=== PATIENT | male | born 1935 | race Caucasian/White ===

== ENCOUNTER → 2016-12-02 | Outpatient (CLI) | payer MEDICARE, OTHER ==
[~2016-12-02] MED LIST: ALLO300T2 OR; ASPI81CH43 OR; CHOL10006 OR; IRBE150T26 OR; OMEG100062 OR; OXCA600T3 OR; ROSU20TA14 OR; WARF7.5T7 OR; [UNRECOGNIZED DRUG - OTHER] OR
[2016-12-02 13:09] LABS: Urine Bilirubin Negative (Negative); Urine Blood TRACE /uL (Negative); Urine Color Yellow (Yellow); Urine Glucose Normal (Normal); Urine Ketone Negative (Negative); Urine Nitrite Negative (Negative); Urine Urobilinogen Normal (Negative); Urine pH 5.5 (5.0-8.0)
[2016-12-02 13:15] LABS: Basophils # (auto) 0 uL; Basophils % (auto) 0.9 % (0.0-2.0); CONDITION Y; Eosinophils # (auto) 0.4 uL; Eosinophils % (auto) 8.4 % (0.0-7.0); Hematocrit 40.8 % (41.0-53.0); Hemoglobin 13.9 g/dL (13.5-17.5); Lymphocytes # (auto) 0.8 uL; Mean Corpuscular Hemoglobin 33.3 pg (28.0-32.0); Mean Corpuscular Hgb Conc. 34.1 g/dL (32.0-36.0); Mean Corpuscular Volume 97.8 fL (80.0-100.0); Mean Platelet Volume 10.9 fL (7.4-10.4); Monocytes # (auto) 0.4 uL; Monocytes % (auto) 7.9 % (0.0-12.0); Neutrophils # (auto) 3.5 uL; Neutrophils % (auto) 67.8 % (37.0-80.0); Platelet Count (auto) 132 10^3/uL (140-450); Red Cell Distribution Width 14.6 % (11.6-16.0); White Blood Cell 5.2 10^3/uL (4.4-10.8)
[2016-12-02 13:21] LABS: BUN/Creatinine Ratio 14.2; Calcium 8.5 mg/dL (8.5-10.1); Potassium 4.5 mmol/L (3.5-5.1)
== END | disposition home or self-care (01) ==
LOC: LAB 08:58
PROVIDERS: ATTEND Internal Medicine Cardiovascular Disease
DX: I10 Essential (primary) hypertension (principal); E78.00 Pure hypercholesterolemia, unspecified; K74.1 Hepatic sclerosis; E11.9 Type 2 diabetes mellitus without complications; R97.20 Elevated prostate specific antigen [PSA]; R53.81 Other malaise; E03.9 Hypothyroidism, unspecified; D64.9 Anemia, unspecified; E55.9 Vitamin D deficiency, unspecified; N39.0 Urinary tract infection, site not specified
CPT/HCPCS: 36415; 80048; 80061; 81003; 82306; 83036; 84153; 84403; 84443; 85025

== ENCOUNTER → 2017-04-18 | Outpatient (CLI) | payer MEDICARE, OTHER ==
[2017-04-18 16:01] LABS: Basophils # (auto) 0.1 uL; Basophils % (auto) 0.8 % (0.0-2.0); Eosinophils # (auto) 0.2 uL; Eosinophils % (auto) 3.1 % (0.0-7.0); Hematocrit 39.5 % (41.0-53.0); Hemoglobin 13.4 g/dL (13.5-17.5); Lymphocytes # (auto) 0.7 uL; Lymphocytes % (auto) 9.7 % (10.0-50.0); Mean Corpuscular Hemoglobin 33.1 pg (28.0-32.0); Mean Corpuscular Volume 97.5 fL (80.0-100.0); Mean Platelet Volume 9.5 fL (6.9-10.8); Monocytes # (auto) 0.6 uL; Monocytes % (auto) 7.9 % (0.0-12.0); Neutrophils % (auto) 78.5 % (37.0-80.0); Nucleated Red Blood Cells % 0.2 %; Platelet Count (auto) 162 10^3/uL (140-450); Red Cell Distribution Width 14.4 % (11.8-14.3); Urine Bilirubin Negative (Negative); Urine Blood Negative /uL (Negative); Urine Color Yellow (Yellow); Urine Glucose Normal (Normal); Urine Ketone Negative (Negative); Urine Nitrite Negative (Negative); Urine Urobilinogen Normal (Negative); Urine pH 5.5 (5.0-8.0); White Blood Cell 7.7 10^3/uL (4.4-10.8)
[2017-04-18 16:29] LABS: Albumin 3.4 g/dL (3.4-5.0); BUN/Creatinine Ratio 16.5; Bilirubin, Direct 0.2 mg/dL (0-0.2); Bilirubin, Total 0.5 mg/dL (0.2-1.0); Calcium 8.6 mg/dL (8.5-10.1); Total Protein 6.7 g/dL (6.4-8.2)
== END | disposition home or self-care (01) ==
LOC: LAB 11:55
PROVIDERS: ATTEND Internal Medicine Cardiovascular Disease
DX: E78.00 Pure hypercholesterolemia, unspecified (principal); E11.9 Type 2 diabetes mellitus without complications; I10 Essential (primary) hypertension; D64.9 Anemia, unspecified; E03.9 Hypothyroidism, unspecified; E55.9 Vitamin D deficiency, unspecified; K74.1 Hepatic sclerosis; N39.0 Urinary tract infection, site not specified; R97.20 Elevated prostate specific antigen [PSA]; R53.81 Other malaise
CPT/HCPCS: 36415; 80048; 80061; 80076; 81003; 82306; 83036; 84153; 84403; 84436; 84443; 85025; 87086

== ENCOUNTER → 2017-04-22 | Outpatient (CLI) | payer MEDICARE, OTHER | END | disposition home or self-care (01) | LOC: Rad HDHVI 14:49 | PROVIDERS: ATTEND Internal Medicine Cardiovascular Disease | DX: I36.1 Nonrheumatic tricuspid (valve) insufficiency (principal); Z95.1 Presence of aortocoronary bypass graft | CPT/HCPCS: 93306 ==

== ENCOUNTER → 2017-04-24 | Outpatient (CLI) | payer MEDICARE, OTHER ==
[~2017-04-24] MED LIST changes: +ALLO300T2 PO; +ASPI1TAB37 PO; +BUME1TAB PO; +CHOL20009 PO; +DIGO0.1262 PO; +DIGO0.2570 PO; +DOBUTamine 1000MCG/ML 250 ML IV ONE; +FUROSEMIDE INJECTION 10 ML ONE; +LEVE500T22 PO; +NEBI20TA2 PO; +OMEG120015 PO; +POTASSIUM CHL 20 Meq TABLET PO ONE; +ROSU20TA14 PO; +TAM04C PO; +TESTOSTERONE CYPIONATE 200 MG/ML 1ML VIAL IM ONE; +WARF7.5T PO
[2017-04-24 14:15] VITALS: BP 120/64
[2017-04-24 16:15] LABS: Basophils # (auto) 0.1 uL; Eosinophils # (auto) 0.3 uL; Eosinophils % (auto) 5.3 % (0.0-7.0); Hematocrit 37.5 % (41.0-53.0); Hemoglobin 12.5 g/dL (13.5-17.5); Lymphocytes # (auto) 0.6 uL; Lymphocytes % (auto) 9.4 % (10.0-50.0); Mean Corpuscular Hemoglobin 32.9 pg (28.0-32.0); Mean Corpuscular Hgb Conc. 33.2 g/dL (32.0-36.0); Mean Corpuscular Volume 98.9 fL (80.0-100.0); Monocytes # (auto) 0.4 uL; Monocytes % (auto) 6.9 % (0.0-12.0); Neutrophils # (auto) 4.9 uL; Neutrophils % (auto) 77.4 % (37.0-80.0); Nucleated Red Blood Cells % 0.2 %; Platelet Count (auto) 136 10^3/uL (140-450); Red Blood Cells 3.79 10^6/uL (4.5-5.90); Red Cell Distribution Width 14.8 % (11.8-14.3); White Blood Cell 6.3 10^3/uL (4.4-10.8)
[2017-04-24 16:30] LABS: BUN/Creatinine Ratio 18.7; Calcium 8.1 mg/dL (8.5-10.1); Potassium 3.6 mmol/L (3.5-5.1)
== END | disposition home or self-care (01) ==
LOC: CHF HDHVI 10:40
PROVIDERS: ATTEND Internal Medicine Cardiovascular Disease
DX: I11.0 Hypertensive heart disease with heart failure (principal); I50.9 Heart failure, unspecified; D64.9 Anemia, unspecified; I10 Essential (primary) hypertension; I48.91 Unspecified atrial fibrillation; N19 Unspecified kidney failure; E29.1 Testicular hypofunction; Z79.899 Other long term (current) drug therapy
CPT/HCPCS: 36415; 80048; 80162; 83880; 85025; 93005; 93701; 96365; 96366; 96367; 96372; G0463; J1071; J1250; J1940

== ENCOUNTER → 2017-04-28 | Outpatient (CLI) | payer MEDICARE, OTHER ==
[~2017-04-28] VITALS: Ht 33 cm; Wt 101.2 kg
[~2017-04-28] MED LIST changes: +FUROSEMIDE 100 MG/10ML VIAL IV ONE; +SODIUM CHLORIDE 0.9% 100 ML IV SCH; -TESTOSTERONE CYPIONATE 200 MG/ML 1ML VIAL IM ONE
[2017-04-28 14:40] VITALS: BP 95/55
== END | disposition home or self-care (01) ==
LOC: CHF HDHVI 10:49
PROVIDERS: ATTEND Internal Medicine Cardiovascular Disease
DX: I50.9 Heart failure, unspecified (principal); I25.10 Atherosclerotic heart disease of native coronary artery without angina pectoris
CPT/HCPCS: 96365; 96366; 96367; G0463; J1250; J1940; 96368

== ENCOUNTER → 2017-04-30 | Outpatient (CLI) | payer MEDICARE, OTHER ==
[2017-04-30] VITALS (9 sets, daily range): BP systolic 103–112; BP diastolic 60–73
[~2017-04-30] MED LIST changes: -FUROSEMIDE 100 MG/10ML VIAL IV ONE; +FUROSEMIDE 40 MG/4 ML VIAL ONE; -FUROSEMIDE INJECTION 10 ML ONE; +FUROSEMIDE IV SCH; -POTASSIUM CHL 20 Meq TABLET PO ONE; +SODIUM CHL 0.9% IV SCH; -SODIUM CHLORIDE 0.9% 100 ML IV SCH
[2017-04-30 16:22] LABS: Albumin 3.4 g/dL (3.4-5.0); BUN/Creatinine Ratio 17.7; Basophils # (auto) 0.1 uL; Calcium 8.7 mg/dL (8.5-10.1); Eosinophils # (auto) 0.4 uL; Hematocrit 42.1 % (41.0-53.0); Hemoglobin 14.1 g/dL (13.5-17.5); Lymphocytes # (auto) 0.7 uL; Lymphocytes % (auto) 11.4 % (10.0-50.0); Magnesium 2.5 mg/dL (1.6-2.6); Mean Corpuscular Hemoglobin 33.1 pg (28.0-32.0); Mean Corpuscular Hgb Conc. 33.6 g/dL (32.0-36.0); Mean Corpuscular Volume 98.6 fL (80.0-100.0); Monocytes # (auto) 0.4 uL; Monocytes % (auto) 6.5 % (0.0-12.0); Neutrophils # (auto) 4.9 uL; Neutrophils % (auto) 75.1 % (37.0-80.0); Nucleated Red Blood Cells % 0.3 %; Platelet Count (auto) 126 10^3/uL (140-450); Potassium 3.8 mmol/L (3.5-5.1); Red Blood Cells 4.27 10^6/uL (4.5-5.90); Red Cell Distribution Width 14.6 % (11.8-14.3); White Blood Cell 6.5 10^3/uL (4.4-10.8)
[2017-04-30 16:25] LABS: Bilirubin, Total 0.5 mg/dL (0.2-1.0); Total Protein 6.6 g/dL (6.4-8.2)
== END | disposition home or self-care (01) ==
LOC: CHF HDHVI 07:56
PROVIDERS: ATTEND Internal Medicine Cardiovascular Disease
DX: I50.9 Heart failure, unspecified (principal); N19 Unspecified kidney failure
CPT/HCPCS: 36415; 80053; 82607; 83735; 85025; 85610; 96365; 96366; 96368; G0463; J1250; J1642; J1940; 96367

== ENCOUNTER → 2017-05-02 | Outpatient (CLI) | payer MEDICARE, OTHER ==
[~2017-05-02] MED LIST changes: +FUROSEMIDE 100 MG/10ML VIAL IV ONE; -FUROSEMIDE 40 MG/4 ML VIAL ONE; +FUROSEMIDE INJECTION 10 ML ONE; -FUROSEMIDE IV SCH; -SODIUM CHL 0.9% IV SCH; +SODIUM CHLORIDE 0.9% 100 ML IV ONE
[2017-05-02 09:00] VITALS: BP 99/58
[2017-05-02 09:15] VITALS: BP 106/68
[2017-05-02 11:55] VITALS: BP 99/58
== END | disposition home or self-care (01) ==
LOC: CHF HDHVI 07:50
PROVIDERS: ATTEND Internal Medicine Cardiovascular Disease
DX: I50.9 Heart failure, unspecified (principal); I25.10 Atherosclerotic heart disease of native coronary artery without angina pectoris; N40.0 Benign prostatic hyperplasia without lower urinary tract symptoms; I48.91 Unspecified atrial fibrillation
CPT/HCPCS: 96365; 96366; G0463; J1250; J1940; 96368

== ENCOUNTER → 2017-05-06 | Outpatient (CLI) | payer MEDICARE, OTHER ==
[2017-05-06] VITALS (10 sets, daily range): BP systolic 98–112; BP diastolic 53–74
[~2017-05-06] MED LIST changes: +CYANOCOBALAMIN (B-12) 1000 MCG/1 ML VIAL IM ONE; +CYANOCOBALAMIN (B-12) 1000 MCG/1 ML VIAL ONE; -SODIUM CHLORIDE 0.9% 100 ML IV ONE; +TESTOSTERONE CYPIONATE 200 MG/ML 1ML VIAL IM ONE
== END | disposition home or self-care (01) ==
LOC: CHF HDHVI 12:24
PROVIDERS: ATTEND Internal Medicine Cardiovascular Disease
DX: I50.9 Heart failure, unspecified (principal); I25.10 Atherosclerotic heart disease of native coronary artery without angina pectoris; D64.9 Anemia, unspecified; E29.1 Testicular hypofunction
CPT/HCPCS: 85610; 96365; 96366; 96367; 96372; G0463; J1071; J1250; J1940; J3420

== ENCOUNTER → 2017-05-08 | Outpatient (CLI) | payer MEDICARE, OTHER ==
[~2017-05-08] MED LIST changes: -CYANOCOBALAMIN (B-12) 1000 MCG/1 ML VIAL IM ONE; -CYANOCOBALAMIN (B-12) 1000 MCG/1 ML VIAL ONE; -FUROSEMIDE 100 MG/10ML VIAL IV ONE; +FUROSEMIDE 20 MG/2 ML VIAL ONE; +FUROSEMIDE 40 MG/4 ML VIAL ONE; -FUROSEMIDE INJECTION 10 ML ONE; +FUROSEMIDE INJECTION 60 MG in SODIUM CHL 0.9% 60 ML IV SCH; -TESTOSTERONE CYPIONATE 200 MG/ML 1ML VIAL IM ONE
[2017-05-08 14:20] VITALS: BP 101/70
[2017-05-08 16:07] LABS: Basophils # (auto) 0.1 uL; Basophils % (auto) 1.1 % (0.0-2.0); Eosinophils # (auto) 0.3 uL; Eosinophils % (auto) 5.6 % (0.0-7.0); Hemoglobin 13.7 g/dL (13.5-17.5); Lymphocytes # (auto) 0.7 uL; Lymphocytes % (auto) 12.8 % (10.0-50.0); Mean Corpuscular Hemoglobin 32.9 pg (28.0-32.0); Mean Corpuscular Hgb Conc. 33.3 g/dL (32.0-36.0); Mean Corpuscular Volume 98.6 fL (80.0-100.0); Monocytes # (auto) 0.4 uL; Monocytes % (auto) 7.9 % (0.0-12.0); Neutrophils % (auto) 72.6 % (37.0-80.0); Nucleated Red Blood Cells % 0.2 %; Platelet Count (auto) 120 10^3/uL (140-450); Red Blood Cells 4.16 10^6/uL (4.5-5.90); Red Cell Distribution Width 15.5 % (11.8-14.3); White Blood Cell 5.5 10^3/uL (4.4-10.8)
[2017-05-08 16:10] LABS: BUN/Creatinine Ratio 17.3; Calcium 8.3 mg/dL (8.5-10.1); Potassium 3.8 mmol/L (3.5-5.1)
== END | disposition home or self-care (01) ==
LOC: CHF HDHVI 11:00
PROVIDERS: ATTEND Internal Medicine Cardiovascular Disease
DX: I48.91 Unspecified atrial fibrillation (principal); Z79.899 Other long term (current) drug therapy; D64.9 Anemia, unspecified; R53.81 Other malaise; I10 Essential (primary) hypertension
CPT/HCPCS: 36415; 80048; 80162; 84403; 85025; 96365; 96366; 96367; G0463; J1250; J1940; J7040; 96368

== ENCOUNTER → 2017-05-13 | Outpatient (CLI) | payer MEDICARE, OTHER ==
[~2017-05-13] MED LIST changes: -FUROSEMIDE 20 MG/2 ML VIAL ONE; -FUROSEMIDE 40 MG/4 ML VIAL ONE; +FUROSEMIDE INJECTION 10 ML ONE; +FUROSEMIDE INJECTION 100 MG in SODIUM CHL 0.9% 100 ML IV SCH; -FUROSEMIDE INJECTION 60 MG in SODIUM CHL 0.9% 60 ML IV SCH
[2017-05-13 15:00] VITALS: BP 134/77
== END | disposition home or self-care (01) ==
LOC: CHF HDHVI 11:28
PROVIDERS: ATTEND Internal Medicine Cardiovascular Disease
DX: N19 Unspecified kidney failure (principal); I48.91 Unspecified atrial fibrillation; Z79.01 Long term (current) use of anticoagulants
CPT/HCPCS: 85610; 96365; 96366; 96368; G0463; J1250; J1940; J7040; 96367

== ENCOUNTER → 2017-05-15 | Outpatient (CLI) | payer MEDICARE, OTHER ==
[2017-05-15] VITALS (8 sets, daily range): BP systolic 96–128; BP diastolic 63–76
[~2017-05-15] VITALS: Ht 30.5 cm; Wt 0.5 kg
[~2017-05-15] MED LIST changes: +FUROSEMIDE 20 MG/2 ML VIAL IV ONE; +FUROSEMIDE 20 MG/2 ML VIAL ONE; +FUROSEMIDE 40 MG/4 ML VIAL IV ONE; +FUROSEMIDE 40 MG/4 ML VIAL ONE; -FUROSEMIDE INJECTION 10 ML ONE; -FUROSEMIDE INJECTION 100 MG in SODIUM CHL 0.9% 100 ML IV SCH
[2017-05-15 16:55] LABS: Potassium 4.4 mmol/L (3.5-5.1)
== END | disposition home or self-care (01) ==
LOC: CHF HDHVI 11:05
PROVIDERS: ATTEND Internal Medicine Cardiovascular Disease
DX: E87.5 Hyperkalemia (principal); R94.4 Abnormal results of kidney function studies; I50.9 Heart failure, unspecified; N19 Unspecified kidney failure
CPT/HCPCS: 36415; 82565; 84132; 84520; 85610; 96365; 96366; 96375; 96376; G0463; J1250; J1940; 96367; 96374

== ENCOUNTER → 2017-05-19 | Outpatient (CLI) | payer MEDICARE, OTHER ==
[2017-05-19] VITALS (8 sets, daily range): BP systolic 95–117; BP diastolic 56–70
[~2017-05-19] MED LIST changes: -FUROSEMIDE 20 MG/2 ML VIAL IV ONE; -FUROSEMIDE 20 MG/2 ML VIAL ONE; -FUROSEMIDE 40 MG/4 ML VIAL IV ONE; -FUROSEMIDE 40 MG/4 ML VIAL ONE
== END | disposition home or self-care (01) ==
LOC: CHF HDHVI 10:54
PROVIDERS: ATTEND Internal Medicine Cardiovascular Disease
DX: I48.91 Unspecified atrial fibrillation (principal); N19 Unspecified kidney failure
CPT/HCPCS: 85610; 96365; 96366; G0463

== ENCOUNTER 2017-05-20 00:49 | Inpatient (IN) | payer MEDICARE, OTHER ==
[~2017-05-20] VITALS: Ht 170.2 cm; Wt 97.0 kg
[~2017-05-20 00:49] MED LIST changes: -ALLO300T2 PO; -ASPI1TAB37 PO; -BUME1TAB PO; -CHOL20009 PO; -DIGO0.1262 PO; -DIGO0.2570 PO; -DOBUTamine 1000MCG/ML 250 ML IV ONE; -LEVE500T22 PO; -NEBI20TA2 PO; -OMEG120015 PO; -ROSU20TA14 PO; -TAM04C PO; -WARF7.5T PO
[2017-05-20] MEDS ORDERED: FUROSEMIDE 40 MG/4 ML VIAL IV ONE (02:00)
[2017-05-20 02:09] LABS: Basophils # (auto) 0 uL; Basophils % (auto) 0.2 % (0.0-2.0); Eosinophils # (auto) 0.1 uL; Eosinophils % (auto) 1.1 % (0.0-7.0); Hematocrit 42.1 % (41.0-53.0); Hemoglobin 14.1 g/dL (13.5-17.5); Lymphocytes # (auto) 0.2 uL; Lymphocytes % (auto) 2.4 % (10.0-50.0); Mean Corpuscular Hemoglobin 32.5 pg (28.0-32.0); Mean Corpuscular Hgb Conc. 33.5 g/dL (32.0-36.0); Mean Corpuscular Volume 97.2 fL (80.0-100.0); Monocytes # (auto) 0.4 uL; Neutrophils # (auto) 8.5 uL; Neutrophils % (auto) 92.3 % (37.0-80.0); Nucleated Red Blood Cells % 0.1 %; Platelet Count (auto) 122 10^3/uL (140-450); Red Blood Cells 4.33 10^6/uL (4.5-5.90); Red Cell Distribution Width 15.2 % (11.8-14.3); White Blood Cell 9.2 10^3/uL (4.4-10.8)
[2017-05-20 02:21] LABS: INR 3.16 (0.9-1.15); Partial Thromboplastin Time 31.9 sec (22.64-33.71); Prothrombin Time 34.9 sec (9.37-12.3)
[2017-05-20 02:24] LABS: Albumin 3.3 g/dL (3.4-5.0); BUN/Creatinine Ratio 18.9; Calcium 8.7 mg/dL (8.5-10.1); Magnesium 2.2 mg/dL (1.6-2.6); Potassium 3.9 mmol/L (3.5-5.1)
[2017-05-20 02:29] LABS: Bilirubin, Total 0.7 mg/dL (0.2-1.0); Total Protein 6.3 g/dL (6.4-8.2)
[2017-05-20 04:51] LABS: Urine Bacteria NONE SEEN /hpf (None Seen); Urine Blood 1+ /uL (Negative); Urine Specific Gravity 1.009 (1.001-1.035); Urine WBC 4 /hpf (0 - 3)
[2017-05-20] MEDS: predniSONE 20 MG TAB PO SCH (11:03)
[2017-05-20] MEDS: AZITHROMYCIN 500MG/ 250ML 250 ML IV SCH (11:04)
[2017-05-20] MEDS ORDERED: ALLOPURINOL 300 MG TAB PO ONE (16:45)
[2017-05-20] MEDS ORDERED: WARFARIN SODIUM 2.5 MG TAB PO SCH (17:00)
[2017-05-20] MEDS: CHOLECALCIFEROL (VITD3) 1,000 UNIT TAB PO SCH (17:02)
[2017-05-20] MEDS: TAMSULOSIN HYDROCHLORIDE 0.4 MG CAP PO SCH (18:52)
[2017-05-20 20:00] VITALS: BP 111/82
[2017-05-20 22:00] VITALS: BP 111/83
[2017-05-20] MEDS: ATORVASTATIN 20 MG TAB PO SCH (22:13)
[2017-05-20] MEDS: OXcarbazepine 300 MG TAB PO SCH (22:13)
[2017-05-21 05:00] VITALS: BP 111/64
[2017-05-21 07:18] LABS: INR 3.2 (0.9-1.15); Prothrombin Time 35.3 sec (9.37-12.3)
[2017-05-21 08:04] VITALS: BP 106/70
[2017-05-21] MEDS ORDERED: ASPirin 81 mg TAB PO SCH (10:00)
[2017-05-21] MEDS: PATIENTS OWN MEDICATION (Omega-3 Fatty Acids (Fish Oil) 1,000 MG) OR SCH (10:00)
[2017-05-21] MEDS: OXcarbazepine 300 MG TAB PO SCH ×2 (10:00→10:52)
[2017-05-21] MEDS: ALLOPURINOL 300 MG TAB PO SCH (10:52)
[2017-05-21] MEDS: ASPirin 81 mg TAB PO SCH (10:52)
[2017-05-21] MEDS: predniSONE 20 MG TAB PO SCH (10:52)
[2017-05-21] MEDS: CHOLECALCIFEROL (VITD3) 1,000 UNIT TAB PO SCH (10:52)
[2017-05-21] MEDS: AZITHROMYCIN 500MG/ 250ML 250 ML IV SCH (10:53)
[2017-05-21] MEDS ORDERED: BUME1TAB PO (11:00)
[2017-05-21] MEDS ORDERED: LEVE500T22 PO (11:00)
[2017-05-21] MEDS ORDERED: NEBI20TA2 PO (11:00)
[2017-05-21] MEDS ORDERED: DIGO0.2570 PO (11:00)
[2017-05-21] MEDS ORDERED: DIGO0.1262 PO (11:05)
[2017-05-21 11:55] VITALS: BP 90/72
[2017-05-21] MEDS: SODIUM CHLORIDE 0.9% 1,000 ML IV SCH ×2 (13:25→23:00)
[2017-05-21] MEDS: LEVETIRACETAM 500 MG TAB PO SCH ×2 (13:42→22:25)
[2017-05-21 16:57] VITALS: BP 95/54
[2017-05-21] MEDS ORDERED: WARFARIN SODIUM 2.5 MG TAB PO SCH (17:00)
[2017-05-21] MEDS: TAMSULOSIN HYDROCHLORIDE 0.4 MG CAP PO SCH (17:49)
[2017-05-21 20:00] VITALS: BP 110/79
[2017-05-21 22:00] VITALS: BP 110/79
[2017-05-21] MEDS: ATORVASTATIN 20 MG TAB PO SCH (22:25)
[2017-05-22 05:07] VITALS: BP 101/71
[2017-05-22 07:17] LABS: Basophils # (auto) 0 uL; Basophils % (auto) 0.1 % (0.0-2.0); Eosinophils # (auto) 0 uL; Eosinophils % (auto) 0.4 % (0.0-7.0); Hematocrit 36.7 % (41.0-53.0); Hemoglobin 12.5 g/dL (13.5-17.5); Lymphocytes # (auto) 0.6 uL; Lymphocytes % (auto) 8.4 % (10.0-50.0); Mean Corpuscular Hemoglobin 33.1 pg (28.0-32.0); Mean Corpuscular Volume 97.4 fL (80.0-100.0); Monocytes # (auto) 0.7 uL; Monocytes % (auto) 9.6 % (0.0-12.0); Neutrophils # (auto) 6.1 uL; Neutrophils % (auto) 81.5 % (37.0-80.0); Nucleated Red Blood Cells % 0.1 %; Platelet Count (auto) 106 10^3/uL (140-450); Red Blood Cells 3.77 10^6/uL (4.5-5.90); White Blood Cell 7.5 10^3/uL (4.4-10.8)
[2017-05-22 07:34] LABS: BUN/Creatinine Ratio 23.6; Calcium 8.3 mg/dL (8.5-10.1)
[2017-05-22 07:41] LABS: INR 3.1 (0.9-1.15); Partial Thromboplastin Time 43.1 sec (22.64-33.71); Prothrombin Time 34.2 sec (9.37-12.3)
[2017-05-22 09:35] VITALS: BP 94/60
[2017-05-22] MEDS: PATIENTS OWN MEDICATION (Omega-3 Fatty Acids (Fish Oil) 1,000 MG) OR SCH (10:00)
[2017-05-22] MEDS: DIGOXIN 0.125 MG TAB PO SCH (10:27)
[2017-05-22] MEDS: AZITHROMYCIN 500MG/ 250ML 250 ML IV SCH (10:27)
[2017-05-22] MEDS: ALLOPURINOL 300 MG TAB PO SCH (10:28)
[2017-05-22] MEDS: ASPirin 81 mg TAB PO SCH (10:28)
[2017-05-22] MEDS: LEVETIRACETAM 500 MG TAB PO SCH ×2 (10:28→22:45)
[2017-05-22] MEDS: predniSONE 20 MG TAB PO SCH (10:28)
[2017-05-22] MEDS: CHOLECALCIFEROL (VITD3) 1,000 UNIT TAB PO SCH (10:29)
[2017-05-22] MEDS: SODIUM CHLORIDE 0.9% 1,000 ML IV SCH ×2 (10:33→22:45)
[2017-05-22 13:14] VITALS: BP 88/57
[2017-05-22 17:15] VITALS: BP 88/51
[2017-05-22] MEDS: TAMSULOSIN HYDROCHLORIDE 0.4 MG CAP PO SCH (18:16)
[2017-05-22 22:00] VITALS: BP 102/77
[2017-05-22] MEDS: ATORVASTATIN 20 MG TAB PO SCH (22:45)
[2017-05-23 05:00] VITALS: BP 107/73
[2017-05-23] MEDS: SODIUM CHLORIDE 0.9% 1,000 ML IV SCH ×2 (05:00→15:00)
[2017-05-23 07:27] LABS: INR 2.32 (0.9-1.15); Partial Thromboplastin Time 38.3 sec (22.64-33.71); Prothrombin Time 25.5 sec (9.37-12.3)
[2017-05-23 09:12] VITALS: BP 106/72
[2017-05-23] MEDS: PATIENTS OWN MEDICATION (Omega-3 Fatty Acids (Fish Oil) 1,000 MG) OR SCH (10:00)
[2017-05-23] MEDS: AZITHROMYCIN 500MG/ 250ML 250 ML IV SCH (10:40)
[2017-05-23] MEDS: ASPirin 81 mg TAB PO SCH (10:41)
[2017-05-23] MEDS: ALLOPURINOL 300 MG TAB PO SCH (10:41)
[2017-05-23] MEDS: LEVETIRACETAM 500 MG TAB PO SCH ×2 (10:41→22:00)
[2017-05-23] MEDS: predniSONE 20 MG TAB PO SCH (10:41)
[2017-05-23] MEDS: CHOLECALCIFEROL (VITD3) 1,000 UNIT TAB PO SCH (10:41)
[2017-05-23] MEDS ORDERED: WARFARIN SODIUM 2 MG TAB PO ONE (17:00)
[2017-05-23] MEDS: TAMSULOSIN HYDROCHLORIDE 0.4 MG CAP PO SCH (18:37)
[2017-05-23 22:00] VITALS: BP 115/60
[2017-05-23] MEDS: ATORVASTATIN 20 MG TAB PO SCH (22:00)
[2017-05-24] MEDS: SODIUM CHLORIDE 0.9% 1,000 ML IV SCH (01:00)
[2017-05-24 05:13] VITALS: BP 125/69
[2017-05-24 07:27] LABS: INR 2.06 (0.9-1.15); Prothrombin Time 22.6 sec (9.37-12.3)
[2017-05-24 07:37] LABS: Potassium 4.5 mmol/L (3.5-5.1)
[2017-05-24 07:46] LABS: Albumin 2.8 g/dL (3.4-5.0); Bilirubin, Total 0.6 mg/dL (0.2-1.0); Calcium 8.2 mg/dL (8.5-10.1); Total Protein 5.8 g/dL (6.4-8.2)
[2017-05-24 09:00] VITALS: BP 133/81
[2017-05-24] MEDS: PATIENTS OWN MEDICATION (Omega-3 Fatty Acids (Fish Oil) 1,000 MG) OR SCH (10:00)
[2017-05-24] MEDS: DIGOXIN 0.125 MG TAB PO SCH (10:00)
[2017-05-24] MEDS: CHOLECALCIFEROL (VITD3) 1,000 UNIT TAB PO SCH (10:14)
[2017-05-24] MEDS: AZITHROMYCIN 500MG/ 250ML 250 ML IV SCH (10:14)
[2017-05-24] MEDS: predniSONE 20 MG TAB PO SCH (10:16)
[2017-05-24] MEDS: LEVETIRACETAM 500 MG TAB PO SCH (10:16)
[2017-05-24] MEDS: ALLOPURINOL 300 MG TAB PO SCH (10:16)
[2017-05-24] MEDS: ASPirin 81 mg TAB PO SCH (10:16)
[2017-05-24] MEDS ORDERED: FUROSEMIDE 100 MG/10ML VIAL IV ONE (11:00)
[2017-05-24] MEDS ORDERED: POTASSIUM CHL 20 Meq TABLET PO ONE (11:00)
[2017-05-24 13:00] VITALS: BP 107/65
[2017-05-24 16:13] VITALS: BP 107/65
[2017-05-24] MEDS ORDERED: WARFARIN SODIUM 5 MG TAB PO ONE (17:00)
[2017-06-09] MEDS ORDERED: ASPI1TAB37 PO (14:30)
[2017-06-09] MEDS ORDERED: ALLO300T2 PO (14:30)
[2017-06-09] MEDS ORDERED: DIGO0.1262 PO (14:30)
[2017-06-09] MEDS ORDERED: CHOL20009 PO (14:30)
[2017-06-09] MEDS ORDERED: OMEG120015 PO (14:30)
[2017-06-09] MEDS ORDERED: WARF7.5T PO (14:30)
[2017-06-09] MEDS ORDERED: TAM04C PO (14:30)
[2017-06-09] MEDS ORDERED: ROSU20TA14 PO (14:30)
== END 2017-05-24 17:10 | disposition home or self-care (01) | DRG 291 ==
LOC: EDBD 00:49 → ER 00:54 → OVERFLOW 00:55 → WEST WING 14:00 → EAST 18:40
PROVIDERS: ADMIT Internal Medicine Cardiovascular Disease; ATTEND Internal Medicine Cardiovascular Disease
DX: I11.0 Hypertensive heart disease with heart failure (principal); J96.90 Respiratory failure, unspecified, unspecified whether with hypoxia or hypercapnia; N17.9 Acute kidney failure, unspecified; I50.23 Acute on chronic systolic (congestive) heart failure; F32.9 Major depressive disorder, single episode, unspecified; F41.9 Anxiety disorder, unspecified; J40 Bronchitis, not specified as acute or chronic; M10.9 Gout, unspecified; Z82.5 Family history of asthma and other chronic lower respiratory diseases; Z83.3 Family history of diabetes mellitus; Z87.891 Personal history of nicotine dependence; Z95.1 Presence of aortocoronary bypass graft; Z95.2 Presence of prosthetic heart valve; Z90.89 Acquired absence of other organs; Z79.899 Other long term (current) drug therapy; Z79.01 Long term (current) use of anticoagulants
CPT/HCPCS: 36415; 36600; 71046; 80048; 80053; 81001; 82805; 83735; 83880; 84484; 85025; 85610; 85730; 93005; 93306; 96365; 96366; 96375; G0463

== ENCOUNTER → 2017-05-26 | Outpatient (CLI) | payer MEDICARE, OTHER ==
[~2017-05-26] VITALS: Ht 30.5 cm; Wt 98.0 kg
[~2017-05-26] MED LIST changes: +ALLO300T2 PO; +ASPI1TAB37 PO; +BUME1TAB PO; +CHOL20009 PO; +DIGO0.1262 PO; +DOBUTamine 1000MCG/ML 250 ML IV ONE; -IRBE150T26 OR; +LEVE500T22 PO; +NEBI20TA2 PO; +OMEG120015 PO; -OXCA600T3 OR; +ROSU20TA14 PO; +TAM04C PO; +WARF7.5T PO
[2017-05-26 11:30] VITALS: BP 118/62
[2017-05-26 11:45] VITALS: BP 101/66
[2017-05-26 12:00] VITALS: BP 101/59
[2017-05-26 12:15] VITALS: BP 99/70
[2017-05-26 12:30] VITALS: BP 108/75
[2017-05-26 14:40] VITALS: BP 130/67
[2017-05-26 16:23] LABS: Basophils # (auto) 0.1 uL; Basophils % (auto) 0.6 % (0.0-2.0); Eosinophils # (auto) 0.3 uL; Eosinophils % (auto) 3.8 % (0.0-7.0); Hematocrit 41.7 % (41.0-53.0); Hemoglobin 13.7 g/dL (13.5-17.5); Lymphocytes # (auto) 1.3 uL; Lymphocytes % (auto) 16.1 % (10.0-50.0); Mean Corpuscular Hemoglobin 32.7 pg (28.0-32.0); Mean Corpuscular Volume 99.4 fL (80.0-100.0); Monocytes # (auto) 0.7 uL; Monocytes % (auto) 8.5 % (0.0-12.0); Neutrophils # (auto) 5.6 uL; Nucleated Red Blood Cells % 0.2 %; Platelet Count (auto) 147 10^3/uL (140-450); Red Blood Cells 4.19 10^6/uL (4.5-5.90); Red Cell Distribution Width 15.3 % (11.8-14.3); White Blood Cell 7.8 10^3/uL (4.4-10.8)
[2017-05-26 16:47] LABS: BUN/Creatinine Ratio 23.7; Bilirubin, Total 0.4 mg/dL (0.2-1.0); Calcium 8.6 mg/dL (8.5-10.1); Phosphorus 2.8 mg/dL (2.5-4.90); Potassium 4.3 mmol/L (3.5-5.1); Total Protein 5.9 g/dL (6.4-8.2)
== END | disposition home or self-care (01) ==
LOC: CHF HDHVI 10:59
PROVIDERS: ATTEND Internal Medicine Cardiovascular Disease
DX: I11.0 Hypertensive heart disease with heart failure (principal); I50.9 Heart failure, unspecified; E83.30 Disorder of phosphorus metabolism, unspecified; D64.9 Anemia, unspecified; N19 Unspecified kidney failure
CPT/HCPCS: 36415; 80053; 83880; 84100; 85025; 85610; 96365; 96366; G0463; J1250

== ENCOUNTER → 2017-05-28 | Outpatient (CLI) | payer MEDICARE, OTHER ==
[~2017-05-28] MED LIST changes: +CYANOCOBALAMIN (B-12) 1000 MCG/1 ML VIAL IM ONE; +CYANOCOBALAMIN (B-12) 1000 MCG/1 ML VIAL ONE
[2017-05-28 12:43] LABS: Magnesium 2.4 mg/dL (1.6-2.6); Potassium 4.2 mmol/L (3.5-5.1)
[2017-05-28 14:30] VITALS: BP 120/72
== END | disposition home or self-care (01) ==
LOC: CHF HDHVI 10:53
PROVIDERS: ATTEND Internal Medicine Cardiovascular Disease
DX: E87.5 Hyperkalemia (principal); R94.4 Abnormal results of kidney function studies; E83.42 Hypomagnesemia; N19 Unspecified kidney failure
CPT/HCPCS: 36415; 82565; 83735; 84132; 84520; 85610; 96365; 96366; 96372; G0463; J1250; J3420

== ENCOUNTER → 2017-05-30 | Outpatient (CLI) | payer MEDICARE, OTHER ==
[~2017-05-30] MED LIST changes: -CYANOCOBALAMIN (B-12) 1000 MCG/1 ML VIAL IM ONE; -CYANOCOBALAMIN (B-12) 1000 MCG/1 ML VIAL ONE; +SODIUM CHLORIDE 0.9% 1,000 ML IV ONE
[2017-05-30 11:15] VITALS: BP 96/62
[2017-05-30 11:30] VITALS: BP 92/62
[2017-05-30 12:00] VITALS: BP 93/55
[2017-05-30 12:30] VITALS: BP 112/83
[2017-05-30 14:30] VITALS: BP 112/70
== END | disposition home or self-care (01) ==
LOC: CHF HDHVI 11:16
PROVIDERS: ATTEND Internal Medicine Cardiovascular Disease
DX: I50.9 Heart failure, unspecified (principal); R94.4 Abnormal results of kidney function studies; R53.81 Other malaise
CPT/HCPCS: 36415; 82565; 83880; 84403; 84520; 96365; 96366; G0463; J1250

== ENCOUNTER → 2017-06-02 | Outpatient (CLI) | payer MEDICARE, OTHER ==
[~2017-06-02] MED LIST changes: +ADENOSINE 90 MG/30 ML INJ IV ONE; +ANGIOMAX 250 MG VIAL IV ONE; +DIGO0.2570 PO; +IODIXANOL 320MG/ML 100ML BTL IV ONE; +IRBE150T26 OR; +MIDAZOLAM HCL 1MG/1ML-2 ML VIAL ONE; +OXCA600T3 OR; -SODIUM CHLORIDE 0.9% 1,000 ML IV ONE; +SODIUM CHLORIDE 0.9% 1,000 ML IV SCH; +fentaNYL CITRATE 100 MCG/2 ML VL ONE
[2017-06-02 11:30] VITALS: BP 120/56
[2017-06-02 11:45] VITALS: BP 109/65
[2017-06-02 12:00] VITALS: BP 100/65
[2017-06-02 12:15] VITALS: BP 91/63
[2017-06-02 12:45] VITALS: BP 116/74
[2017-06-02 14:25] VITALS: BP 115/76
[2017-06-02 16:35] LABS: Potassium 4.3 mmol/L (3.5-5.1)
== END | disposition home or self-care (01) ==
LOC: CHF HDHVI 11:08
PROVIDERS: ATTEND Internal Medicine Cardiovascular Disease
DX: E87.5 Hyperkalemia (principal); R94.4 Abnormal results of kidney function studies
CPT/HCPCS: 36415; 82565; 84132; 84520; 85610; J1250

== ENCOUNTER 2017-06-03 15:17 | Inpatient (IN) | payer MEDICARE, OTHER ==
[~2017-06-03] VITALS: Ht 167.6 cm; Wt 101.6 kg
[~2017-06-03 15:17] MED LIST changes: -ADENOSINE 90 MG/30 ML INJ IV ONE; -ALLO300T2 PO; -ANGIOMAX 250 MG VIAL IV ONE; -ASPI1TAB37 PO; -CHOL20009 PO; -DOBUTamine 1000MCG/ML 250 ML IV ONE; -IODIXANOL 320MG/ML 100ML BTL IV ONE; -MIDAZOLAM HCL 1MG/1ML-2 ML VIAL ONE; -OMEG120015 PO; -ROSU20TA14 PO; -SODIUM CHLORIDE 0.9% 1,000 ML IV SCH; -TAM04C PO; -WARF7.5T PO; -fentaNYL CITRATE 100 MCG/2 ML VL ONE
[2017-06-03 17:30] VITALS: BP 106/69
[2017-06-03 18:46] LABS: Basophils # (auto) 0.1 uL; Basophils % (auto) 1.1 % (0.0-2.0); Eosinophils # (auto) 0.4 uL; Eosinophils % (auto) 6.5 % (0.0-7.0); Hematocrit 43.1 % (41.0-53.0); Hemoglobin 14.4 g/dL (13.5-17.5); Lymphocytes # (auto) 0.8 uL; Lymphocytes % (auto) 13.5 % (10.0-50.0); Mean Corpuscular Hemoglobin 32.6 pg (28.0-32.0); Mean Corpuscular Hgb Conc. 33.4 g/dL (32.0-36.0); Mean Corpuscular Volume 97.6 fL (80.0-100.0); Monocytes # (auto) 0.4 uL; Monocytes % (auto) 6.6 % (0.0-12.0); Neutrophils # (auto) 4.4 uL; Neutrophils % (auto) 72.3 % (37.0-80.0); Nucleated Red Blood Cells % 0.1 %; Platelet Count (auto) 143 10^3/uL (140-450); Red Blood Cells 4.42 10^6/uL (4.5-5.90); White Blood Cell 6.1 10^3/uL (4.4-10.8)
[2017-06-03 19:00] LABS: BUN/Creatinine Ratio 22.8; Calcium 8.3 mg/dL (8.5-10.1); Potassium 4.1 mmol/L (3.5-5.1)
[2017-06-03 19:03] LABS: INR 1.78 (0.9-1.15); Prothrombin Time 19.5 sec (9.37-12.3)
[2017-06-03] MEDS: SOD CHL 0.45% 1,000 ML IV SCH (19:08)
[2017-06-03 21:44] VITALS: BP 119/75
[2017-06-04 04:49] VITALS: BP 145/55
[2017-06-04] MEDS: SODIUM BICARBONATE 50ML VIAL 150 ML in SODIUM CHLORIDE 0.9% 1,000 ML IV SCH ×2 (04:59→22:37)
[2017-06-04] MEDS: SOD CHL 0.45% 1,000 ML IV SCH (07:05)
[2017-06-04] MEDS ORDERED: LIDOCAINE 2%HCL (LOCAL ANESTH.) INJ 20ML MDV ONE (07:22)
[2017-06-04] MEDS ORDERED: IOHEXOL 350 MG/ML 100ML IJ ONE (07:22)
[2017-06-04 08:00] VITALS: BP 111/70
[2017-06-04 08:30] VITALS: BP 111/70
[2017-06-04 13:21] VITALS: BP 111/70
[2017-06-04 17:06] VITALS: BP 110/67
[2017-06-04] MEDS ORDERED: WARFARIN SODIUM 2.5 MG TAB PO ONE ×2 (21:16→22:00)
[2017-06-04 22:00] VITALS: BP 123/70
[2017-06-04] MEDS ORDERED: DIGOXIN 0.125 MG TAB PO SCH (22:00)
[2017-06-04] MEDS ORDERED: TAMSULOSIN HYDROCHLORIDE 0.4 MG CAP PO SCH (22:00)
[2017-06-04] MEDS: LEVETIRACETAM 500 MG TAB PO SCH (22:34)
[2017-06-04] MEDS: ASPirin 81 mg TAB PO SCH (22:36)
[2017-06-04] MEDS: ALLOPURINOL 300 MG TAB PO SCH (22:36)
[2017-06-04] MEDS: BUMETANIDE 1 MG TAB PO SCH (22:36)
[2017-06-05 05:49] VITALS: BP 120/69
[2017-06-05 07:01] LABS: INR 1.4 (0.9-1.15); Partial Thromboplastin Time 28.8 sec (22.64-33.71); Prothrombin Time 15.3 sec (9.37-12.3)
[2017-06-05 07:44] VITALS: BP 123/70
[2017-06-05 08:00] VITALS: BP 123/70
[2017-06-05 09:19] LABS: Basophils # (auto) 0.1 uL; Basophils % (auto) 1.2 % (0.0-2.0); Eosinophils # (auto) 0.5 uL; Eosinophils % (auto) 7.5 % (0.0-7.0); Hematocrit 40.7 % (41.0-53.0); Hemoglobin 13.6 g/dL (13.5-17.5); Lymphocytes # (auto) 1.2 uL; Lymphocytes % (auto) 18.7 % (10.0-50.0); Mean Corpuscular Hemoglobin 32.3 pg (28.0-32.0); Mean Corpuscular Hgb Conc. 33.5 g/dL (32.0-36.0); Mean Corpuscular Volume 96.6 fL (80.0-100.0); Monocytes # (auto) 0.5 uL; Monocytes % (auto) 7.1 % (0.0-12.0); Neutrophils # (auto) 4.1 uL; Neutrophils % (auto) 65.5 % (37.0-80.0); Nucleated Red Blood Cells % 0.1 %; Platelet Count (auto) 131 10^3/uL (140-450); Red Blood Cells 4.22 10^6/uL (4.5-5.90); Red Cell Distribution Width 14.8 % (11.8-14.3); White Blood Cell 6.3 10^3/uL (4.4-10.8)
[2017-06-05 09:25] LABS: Calcium 8.4 mg/dL (8.5-10.1); Potassium 4.3 mmol/L (3.5-5.1)
[2017-06-05] MEDS: BUMETANIDE 1 MG TAB PO SCH (10:04)
[2017-06-05] MEDS: ASPirin 81 mg TAB PO SCH (10:05)
[2017-06-05] MEDS: ALLOPURINOL 300 MG TAB PO SCH (10:05)
[2017-06-05] MEDS: LEVETIRACETAM 500 MG TAB PO SCH (10:05)
[2017-06-05 12:00] VITALS: BP 126/77
[2017-06-05] MEDS ORDERED: WARFARIN SODIUM 2.5 MG TAB PO ONE (17:00)
[2017-06-09] MEDS ORDERED: WARF7.5T PO (14:30)
[2017-06-09] MEDS ORDERED: ASPI1TAB37 PO (14:30)
[2017-06-09] MEDS ORDERED: OMEG120015 PO (14:30)
[2017-06-09] MEDS ORDERED: CHOL20009 PO (14:30)
[2017-06-09] MEDS ORDERED: ROSU20TA14 PO (14:30)
[2017-06-09] MEDS ORDERED: DIGO0.1262 PO (14:30)
[2017-06-09] MEDS ORDERED: ALLO300T2 PO (14:30)
[2017-06-09] MEDS ORDERED: TAM04C PO (14:30)
== END 2017-06-05 12:45 | disposition home or self-care (01) | DRG 286 ==
LOC: TELE-WESTW 15:17
PROVIDERS: ADMIT Internal Medicine; ATTEND Internal Medicine
PROC: 4A023N8 Measurement of Cardiac Sampling and Pressure, Bilateral, Percutaneous Approach (ICD-10-PCS; principal; 2017-06-04)
PROC: 4A033BC Measurement of Arterial Pressure, Coronary, Percutaneous Approach (ICD-10-PCS; 2017-06-04)
PROC: B2111ZZ Fluoroscopy of Multiple Coronary Arteries using Low Osmolar Contrast (ICD-10-PCS; 2017-06-04)
DX: I25.10 Atherosclerotic heart disease of native coronary artery without angina pectoris (principal); I50.23 Acute on chronic systolic (congestive) heart failure; N18.4 Chronic kidney disease, stage 4 (severe); E11.22 Type 2 diabetes mellitus with diabetic chronic kidney disease; I27.20 Pulmonary hypertension, unspecified; I42.9 Cardiomyopathy, unspecified; I13.0 Hypertensive heart and chronic kidney disease with heart failure and stage 1 through stage 4 chronic kidney disease, or unspecified chronic kidney disease; I05.0 Rheumatic mitral stenosis; E78.5 Hyperlipidemia, unspecified; I48.91 Unspecified atrial fibrillation; Z82.5 Family history of asthma and other chronic lower respiratory diseases; Z83.3 Family history of diabetes mellitus; Z95.1 Presence of aortocoronary bypass graft; Z95.2 Presence of prosthetic heart valve; Z90.89 Acquired absence of other organs; Z79.899 Other long term (current) drug therapy; Z79.84 Long term (current) use of oral hypoglycemic drugs
CPT/HCPCS: 36415; 71045; 80048; 82565; 84132; 84520; 85025; 85610; 85730; 87081; 93005; 93458; 93571

== ENCOUNTER → 2017-06-06 | Outpatient (CLI) | payer MEDICARE, OTHER ==
[~2017-06-06] VITALS: Ht 30.5 cm; Wt 55.3 kg
[~2017-06-06] MED LIST changes: +ALLO300T2 PO; +ASPI1TAB37 PO; +CHOL20009 PO; -DIGO0.2570 PO; +DOBUTamine 1000MCG/ML 250 ML IV ONE; -IRBE150T26 OR; +OMEG120015 PO; -OXCA600T3 OR; +ROSU20TA14 PO; +TAM04C PO; +WARF7.5T PO
[2017-06-06 11:30] VITALS: BP 214/79
== END | disposition home or self-care (01) ==
LOC: CHF HDHVI 11:26
PROVIDERS: ATTEND Internal Medicine Cardiovascular Disease
DX: I50.9 Heart failure, unspecified (principal); N19 Unspecified kidney failure; R53.83 Other fatigue
CPT/HCPCS: 96365; 96366; G0463; J1250

== ENCOUNTER → 2017-06-09 | Outpatient (CLI) | payer MEDICARE, OTHER ==
[~2017-06-09] VITALS: Ht 30.5 cm; Wt 94.6 kg
[2017-06-09] VITALS (7 sets, daily range): BP systolic 94–111; BP diastolic 55–71
[~2017-06-09] MED LIST changes: +TESTOSTERONE CYPIONATE 200 MG/ML 1ML VIAL IM ONE
[2017-06-09 16:30] LABS: Basophils # (auto) 0.1 uL; Basophils % (auto) 1.4 % (0.0-2.0); Eosinophils # (auto) 0.3 uL; Eosinophils % (auto) 6.5 % (0.0-7.0); Hematocrit 42.3 % (41.0-53.0); Hemoglobin 14.2 g/dL (13.5-17.5); Lymphocytes # (auto) 0.7 uL; Lymphocytes % (auto) 14.3 % (10.0-50.0); Mean Corpuscular Hemoglobin 32.9 pg (28.0-32.0); Mean Corpuscular Hgb Conc. 33.5 g/dL (32.0-36.0); Mean Corpuscular Volume 98.2 fL (80.0-100.0); Monocytes # (auto) 0.4 uL; Neutrophils # (auto) 3.5 uL; Neutrophils % (auto) 69.8 % (37.0-80.0); Nucleated Red Blood Cells % 0.1 %; Platelet Count (auto) 117 10^3/uL (140-450); Red Blood Cells 4.31 10^6/uL (4.5-5.90); Red Cell Distribution Width 15.2 % (11.8-14.3)
[2017-06-09 16:32] LABS: BUN/Creatinine Ratio 22.1; Calcium 8.5 mg/dL (8.5-10.1); Potassium 4.1 mmol/L (3.5-5.1)
[2017-06-09 17:48] LABS: INR 1.27 (0.9-1.15); Partial Thromboplastin Time 28.3 sec (22.64-33.71); Prothrombin Time 13.9 sec (9.37-12.3)
== END | disposition home or self-care (01) ==
LOC: CHF HDHVI 10:54
PROVIDERS: ATTEND Internal Medicine Cardiovascular Disease
DX: Z01.812 Encounter for preprocedural laboratory examination (principal); D64.9 Anemia, unspecified; I10 Essential (primary) hypertension; R79.1 Abnormal coagulation profile; E29.1 Testicular hypofunction; E78.5 Hyperlipidemia, unspecified
CPT/HCPCS: 36415; 80048; 85025; 85610; 85730; 93005; 96365; 96366; 96372; G0463; J1071; J1250

== ENCOUNTER → 2017-06-11 | Outpatient (CLI) | payer MEDICARE, OTHER ==
[~2017-06-11] MED LIST changes: -TESTOSTERONE CYPIONATE 200 MG/ML 1ML VIAL IM ONE
[2017-06-11 11:04] VITALS: BP 118/75
[2017-06-11 11:30] VITALS: BP 110/57
[2017-06-11 11:45] VITALS: BP 119/62
[2017-06-11 14:30] VITALS: BP 127/75
[2017-06-11 16:30] LABS: BUN/Creatinine Ratio 21.8; Calcium 8.7 mg/dL (8.5-10.1)
[2017-06-11 16:51] LABS: Basophils # (auto) 0.1 uL; Basophils % (auto) 1.2 % (0.0-2.0); Eosinophils # (auto) 0.4 uL; Hematocrit 42.2 % (41.0-53.0); Lymphocytes # (auto) 0.7 uL; Lymphocytes % (auto) 14.9 % (10.0-50.0); Mean Corpuscular Hemoglobin 32.2 pg (28.0-32.0); Mean Corpuscular Hgb Conc. 33.2 g/dL (32.0-36.0); Monocytes # (auto) 0.4 uL; Monocytes % (auto) 7.8 % (0.0-12.0); Neutrophils # (auto) 3.4 uL; Neutrophils % (auto) 68.1 % (37.0-80.0); Nucleated Red Blood Cells % 0.2 %; Platelet Count (auto) 124 10^3/uL (140-450); Red Blood Cells 4.35 10^6/uL (4.5-5.90); White Blood Cell 4.9 10^3/uL (4.4-10.8)
== END | disposition home or self-care (01) ==
LOC: CHF HDHVI 11:07
PROVIDERS: ATTEND Internal Medicine Cardiovascular Disease
DX: I50.9 Heart failure, unspecified (principal); I10 Essential (primary) hypertension; D64.9 Anemia, unspecified
CPT/HCPCS: 36415; 80048; 83880; 85025; 85610; 96365; 96366; G0463

== ENCOUNTER 2017-06-13 11:51 | Inpatient (IN) | payer MEDICARE, OTHER ==
[~2017-06-13] VITALS: Ht 167.6 cm; Wt 95.3 kg
[~2017-06-13 11:51] MED LIST changes: -ALLO300T2 OR; -ASPI81CH43 OR; -CHOL10006 OR; -DOBUTamine 1000MCG/ML 250 ML IV ONE; -OMEG100062 OR; -ROSU20TA14 OR; -WARF7.5T7 OR; -[UNRECOGNIZED DRUG - OTHER] OR
[2017-06-13] MEDS ORDERED: IOHEXOL 350 MG/ML 100ML IJ ONE (15:10)
[2017-06-13] MEDS ORDERED: LIDOCAINE 2%HCL (LOCAL ANESTH.) INJ 20ML MDV ONE (15:10)
[2017-06-13] MEDS ORDERED: VANCOMYCIN HCL 1000 MG VL ONE (15:12)
[2017-06-13] MEDS ORDERED: ceFAZolin 1GM/50ML 50 ML IV ONE (15:13)
[2017-06-13] MEDS ORDERED: VANCOMYCIN 1GM/250ML 250 ML IV ONE (15:13)
[2017-06-13] MEDS ORDERED: MIDAZOLAM HCL 1MG/1ML-2 ML VIAL ONE (15:13)
[2017-06-13] MEDS ORDERED: fentaNYL CITRATE 100 MCG/2 ML VL ONE (15:13)
[2017-06-13] MEDS ORDERED: NITROGLYCERIN 0.4 MG SL TAB SL PRN (17:15)
[2017-06-13] MEDS ORDERED: ACETAMINOPHEN 325 MG TAB PO PRN (17:15)
[2017-06-13] MEDS ORDERED: LORazepam 0.5 MG TAB PO PRN (17:15)
[2017-06-13] MEDS ORDERED: MORPHINE SULFATE 4 MG/ML SYR/VIAL IV PRN (17:15)
[2017-06-13] MEDS ORDERED: HYDROcodone-ACET 5/325MG TAB PO PRN (17:15)
[2017-06-13] MEDS: LEVETIRACETAM 500 MG TAB PO SCH (21:17)
[2017-06-13 22:00] VITALS: BP 94/64
[2017-06-13] MEDS ORDERED: ATORVASTATIN 20 MG TAB PO SCH (22:00)
[2017-06-14] MEDS ORDERED: VANCOMYCIN 1GM/250ML 250 ML IV SCH (03:00)
[2017-06-14 05:00] VITALS: BP 99/64
[2017-06-14] MEDS: HYDROcodone-ACET 10/325MG TAB PO PRN ×2 (07:20→11:36)
[2017-06-14 09:00] VITALS: BP 109/66
[2017-06-14] MEDS: LEVETIRACETAM 500 MG TAB PO SCH (09:26)
[2017-06-14] MEDS ORDERED: TAMSULOSIN HYDROCHLORIDE 0.4 MG CAP PO SCH (10:00)
[2017-06-14] MEDS ORDERED: ALLOPURINOL 300 MG TAB PO SCH (10:00)
[2017-06-14] MEDS ORDERED: BUMETANIDE 1 MG TAB PO SCH (10:00)
[2017-06-14] MEDS ORDERED: CHOLECALCIFEROL 2000 UNIT PO SCH (10:00)
[2017-06-14] MEDS ORDERED: ASPirin-EC 81 mg tab PO SCH (10:00)
[2017-06-14] MEDS ORDERED: NEBIVOLOL HCL 20 MG PO SCH (10:00)
[2017-06-14] MEDS ORDERED: CHOLECALCIFEROL (VITD3) 1,000 UNIT TAB PO SCH (10:00)
[2017-06-14] MEDS ORDERED: PATIENTS OWN MEDICATION (Warfarin Sodium (Coumadin) 1 TAB) PO SCH (10:00)
[2017-06-14 13:00] VITALS: BP 99/75
[2017-06-14 13:08] VITALS: BP 109/66
[2017-06-16] MEDS ORDERED: DIGOXIN 0.125 MG TAB PO SCH (10:00)
== END 2017-06-14 14:00 | disposition home or self-care (01) | DRG 227 ==
LOC: CATH 11:51 → CENTRAL 11:52 → TELE-CENTR 19:28
PROVIDERS: ADMIT Internal Medicine Cardiovascular Disease; ATTEND Internal Medicine Cardiovascular Disease
PROC: 0JH609Z Insertion of Cardiac Resynchronization Defibrillator Pulse Generator into Chest Subcutaneous Tissue and Fascia, Open Approach (ICD-10-PCS; principal; 2017-06-13)
PROC: 02HK3KZ Insertion of Defibrillator Lead into Right Ventricle, Percutaneous Approach (ICD-10-PCS; 2017-06-13)
PROC: 02H63KZ Insertion of Defibrillator Lead into Right Atrium, Percutaneous Approach (ICD-10-PCS; 2017-06-13)
PROC: 02HL3KZ Insertion of Defibrillator Lead into Left Ventricle, Percutaneous Approach (ICD-10-PCS; 2017-06-13)
DX: I42.0 Dilated cardiomyopathy (principal); D68.59 Other primary thrombophilia; I48.91 Unspecified atrial fibrillation; I50.20 Unspecified systolic (congestive) heart failure; I11.0 Hypertensive heart disease with heart failure; I34.0 Nonrheumatic mitral (valve) insufficiency; E78.5 Hyperlipidemia, unspecified; I73.9 Peripheral vascular disease, unspecified; Z95.2 Presence of prosthetic heart valve
CPT/HCPCS: 33249; 36415; 71045; 80048; 83880; 85025; 85610; 93005; 96365; 96366; 99152; G0463; J0690; J2250

== ENCOUNTER → 2017-07-29 | Outpatient (CLI) | payer MEDICARE, OTHER | END | disposition home or self-care (01) | LOC: Rad HDHVI 13:00 | PROVIDERS: ATTEND Internal Medicine Cardiovascular Disease | DX: I34.0 Nonrheumatic mitral (valve) insufficiency (principal); I25.5 Ischemic cardiomyopathy; I47.2 Ventricular tachycardia; Z95.0 Presence of cardiac pacemaker | CPT/HCPCS: 93306 ==

== ENCOUNTER → 2017-08-11 | Outpatient (CLI) | payer MEDICARE, OTHER ==
[~2017-08-11] VITALS: Ht 170.2 cm; Wt 88.0 kg
== END | disposition home or self-care (01) ==
LOC: Rad HDHVI 14:24
PROVIDERS: ATTEND Internal Medicine Cardiovascular Disease
DX: I25.5 Ischemic cardiomyopathy (principal); I50.23 Acute on chronic systolic (congestive) heart failure; N28.9 Disorder of kidney and ureter, unspecified; I47.2 Ventricular tachycardia; M10.9 Gout, unspecified
CPT/HCPCS: 78472; 96374; 96375; A9505

== ENCOUNTER 2017-10-01 14:57 | Inpatient (IN) | payer MEDICARE, OTHER ==
[~2017-10-01] VITALS: Ht 170.2 cm; Wt 87.3 kg
[2017-10-01 15:43] LABS: Basophils # (auto) 0.1 uL; Basophils % (auto) 0.9 % (0.0-2.0); Eosinophils # (auto) 0.2 uL; Eosinophils % (auto) 2.4 % (0.0-7.0); Hematocrit 42.2 % (41.0-53.0); Hemoglobin 14.8 g/dL (13.5-17.5); Lymphocytes # (auto) 0.9 uL; Lymphocytes % (auto) 10.9 % (10.0-50.0); Mean Corpuscular Hemoglobin 33.2 pg (28.0-32.0); Monocytes # (auto) 0.6 uL; Neutrophils # (auto) 6.4 uL; Neutrophils % (auto) 78.8 % (37.0-80.0); Platelet Count (auto) 118 10^3/uL (140-450); Red Blood Cells 4.44 10^6/uL (4.5-5.90); White Blood Cell 8.1 10^3/uL (4.4-10.8)
[2017-10-01 16:02] LABS: Alanine Aminotransferase 23 U/L (16-61); Albumin 3.7 g/dL (3.4-5.0); Alkaline Phosphatase 87 U/L (45-117); Anion Gap 13 (5-15); Aspartate Aminotransferase 22 U/L (15-37); BUN/Creatinine Ratio 19.1; Bilirubin, Total 0.8 mg/dL (0.2-1.0); Blood Urea Nitrogen 58 mg/dL (7-18); Calcium 9.2 mg/dL (8.5-10.1); Carbon Dioxide 26 mmol/L (21-32); Chloride 98 mmol/L (98-107); GFR African American 26 mL/min; GFR Non-African American 21 mL/min; Glucose 110 mg/dL (74-106); Potassium 3.5 mmol/L (3.5-5.1); Sodium 137 mmol/L (136-145); Total Protein 7.1 g/dL (6.4-8.2)
[2017-10-01 16:11] LABS: INR 2.6 (0.9-1.15); Partial Thromboplastin Time 31.4 sec (23.78-33.04); Prothrombin Time 26.4 sec (9.27-12.13)
[2017-10-01] MEDS ORDERED: MORPHINE SULFATE 8mg/ml INJ SDV IV PRN ×2 (17:15)
[2017-10-01] MEDS ORDERED: ACETAMINOPHEN 500 MG TAB PO PRN (17:15)
[2017-10-01] MEDS ORDERED: NITROGLYCERIN 0.4 MG SL TAB SL PRN (17:15)
[2017-10-01] MEDS ORDERED: PROMETHAZINE HCL 25 MG/ML 1ML IV PRN (17:15)
[2017-10-01] MEDS ORDERED: HYDROcodone-ACET 5/325MG TAB PO PRN (17:15)
[2017-10-01] MEDS ORDERED: TEMAZEPAM 15 MG CAP PO PRN (17:15)
[2017-10-01] MEDS ORDERED: LORazepam 0.5 MG TAB PO PRN (17:15)
[2017-10-01] MEDS ORDERED: LABETALOL HCL 5 MG/ML ML 20ML VIAL IV PRN (17:15)
[2017-10-01 17:59] LABS: CRP High Sensitivity 0.12 mg/dL (< 0.3)
[2017-10-01 18:02] LABS: Folate (Folic Acid) > 24.00 ng/mL (5.38-24)
[2017-10-01] MEDS: TAMSULOSIN HYDROCHLORIDE 0.4 MG CAP PO SCH (18:27)
[2017-10-01 20:00] VITALS: BP 93/63
[2017-10-01] MEDS ORDERED: WARFARIN SODIUM 2 MG TAB PO ONE (21:15)
[2017-10-01] MEDS: LEVETIRACETAM 500 MG TAB PO SCH (21:50)
[2017-10-01] MEDS: ATORVASTATIN 20 MG TAB PO SCH (21:50)
[2017-10-01 22:00] VITALS: BP 83/56
[2017-10-02 05:00] VITALS: BP 106/59
[2017-10-02 06:35] LABS: Basophils # (auto) 0.1 uL; Basophils % (auto) 0.7 % (0.0-2.0); Eosinophils # (auto) 0.2 uL; Hematocrit 39.6 % (41.0-53.0); Hemoglobin 13.7 g/dL (13.5-17.5); Lymphocytes % (auto) 13.9 % (10.0-50.0); Mean Corpuscular Hemoglobin 33.2 pg (28.0-32.0); Mean Corpuscular Hgb Conc. 34.5 g/dL (32.0-36.0); Mean Corpuscular Volume 96.1 fL (80.0-100.0); Monocytes # (auto) 0.7 uL; Monocytes % (auto) 9.4 % (0.0-12.0); Neutrophils # (auto) 5.4 uL; Nucleated Red Blood Cells % 0.1 %; Platelet Count (auto) 104 10^3/uL (140-450); Red Blood Cells 4.12 10^6/uL (4.5-5.90); White Blood Cell 7.4 10^3/uL (4.4-10.8)
[2017-10-02 06:43] LABS: INR 2.78 (0.9-1.15); Prothrombin Time 28.1 sec (9.27-12.13)
[2017-10-02 09:00] VITALS: BP 92/53
[2017-10-02] MEDS: NEBIVOLOL 20 MG PO SCH (10:00)
[2017-10-02] MEDS ORDERED: ALLOPURINOL 300 MG TAB PO SCH (10:00)
[2017-10-02] MEDS ORDERED: BUMETANIDE 1 MG TAB PO SCH (10:00)
[2017-10-02] MEDS ORDERED: ALLOPURINOL 100 MG TAB PO ONE (10:45)
[2017-10-02] MEDS ORDERED: ALLOPURINOL 300 MG TAB PO ONE (10:45)
[2017-10-02] MEDS: CHOLECALCIFEROL (VITD3) 1,000 UNIT TAB PO SCH (10:50)
[2017-10-02] MEDS: LEVETIRACETAM 500 MG TAB PO SCH ×2 (10:50→22:05)
[2017-10-02] MEDS: PANTOPRAZOLE 40 MG TAB PO SCH (10:50)
[2017-10-02] MEDS: ASPirin-EC 81 mg tab PO SCH (10:50)
[2017-10-02] MEDS ORDERED: fentaNYL CITRATE 100 MCG/2 ML VL IV ONE (12:15)
[2017-10-02] MEDS ORDERED: FLUMAZENIL 0.1 MG/ML INJ 10ML MDV IV ONE ×2 (12:15→12:36)
[2017-10-02] MEDS ORDERED: MIDAZOLAM HCL 1MG/1ML-2 ML VIAL IV ONE (12:15)
[2017-10-02] MEDS ORDERED: LIDOCAINE VISCOUS 2% 15ML UD PO ONE (12:15)
[2017-10-02] MEDS ORDERED: NALOXONE HCL 0.4 MG/ML VIAL IV ONE (12:15)
[2017-10-02] MEDS ORDERED: fentaNYL CITRATE 100 MCG/2 ML VL ONE (12:36)
[2017-10-02] MEDS ORDERED: NALOXONE HCL 0.4 MG/ML VIAL ONE (12:36)
[2017-10-02] MEDS ORDERED: MIDAZOLAM HCL 1MG/1ML-2 ML VIAL ONE (12:36)
[2017-10-02] MEDS ORDERED: LIDOCAINE VISCOUS 2% 15ML UD ONE (12:37)
[2017-10-02 13:00] VITALS: BP 94/65
[2017-10-02] MEDS: SOD CHL 0.45% 1,000 ML IV SCH (14:30)
[2017-10-02 17:00] VITALS: BP 98/56
[2017-10-02] MEDS ORDERED: WARFARIN SODIUM 2.5 MG TAB PO ONE (17:00)
[2017-10-02] MEDS ORDERED: WARFARIN SODIUM 1 MG TAB PO ONE (17:00)
[2017-10-02] MEDS: TAMSULOSIN HYDROCHLORIDE 0.4 MG CAP PO SCH (18:00)
[2017-10-02 20:00] VITALS: BP 93/61
[2017-10-02 21:20] LABS: Urine Bacteria FEW /hpf (None Seen); Urine Blood TRACE /uL (Negative); Urine Specific Gravity 1.006 (1.001-1.035); Urine WBC <1 /hpf (0 - 3)
[2017-10-02 22:00] VITALS: BP 93/61
[2017-10-02] MEDS: ATORVASTATIN 20 MG TAB PO SCH (22:05)
[2017-10-03] MEDS: SOD CHL 0.45% 1,000 ML IV SCH (03:52)
[2017-10-03 04:32] VITALS: BP 96/60
[2017-10-03 05:40] LABS: INR 3.84 (0.9-1.15); Partial Thromboplastin Time 37.4 sec (23.78-33.04); Prothrombin Time 38.1 sec (9.27-12.13)
[2017-10-03 05:45] LABS: BUN/Creatinine Ratio 16.5; Calcium 8.1 mg/dL (8.5-10.1); Potassium 3.4 mmol/L (3.5-5.1)
[2017-10-03 08:42] VITALS: BP 114/76
[2017-10-03 09:13] VITALS: BP 114/69
[2017-10-03] MEDS: LEVETIRACETAM 500 MG TAB PO SCH (09:37)
[2017-10-03] MEDS: ASPirin-EC 81 mg tab PO SCH (09:37)
[2017-10-03] MEDS: PANTOPRAZOLE 40 MG TAB PO SCH (09:37)
[2017-10-03] MEDS: CHOLECALCIFEROL (VITD3) 1,000 UNIT TAB PO SCH (09:37)
[2017-10-03] MEDS: NEBIVOLOL 20 MG PO SCH (09:38)
[2017-10-03] MEDS ORDERED: DIGOXIN 0.125 MG TAB PO SCH (10:00)
[2017-10-03] MEDS ORDERED: ALLOPURINOL 100 MG TAB PO SCH (10:00)
== END 2017-10-03 16:17 | disposition home or self-care (01) | DRG 683 ==
LOC: EDUNIT# 14:57 → EDBD 14:57 → ER 14:57 → TELE 14:58 → TELE-CENTR 17:54
PROVIDERS: ADMIT Internal Medicine; ATTEND Internal Medicine
PROC: 4B02XTZ Measurement of Cardiac Defibrillator, External Approach (ICD-10-PCS; 2017-10-01)
PROC: B24BZZ4 Ultrasonography of Heart with Aorta, Transesophageal (ICD-10-PCS; principal; 2017-10-02)
DX: N17.0 Acute kidney failure with tubular necrosis (principal); I42.9 Cardiomyopathy, unspecified; E11.22 Type 2 diabetes mellitus with diabetic chronic kidney disease; I50.22 Chronic systolic (congestive) heart failure; I13.0 Hypertensive heart and chronic kidney disease with heart failure and stage 1 through stage 4 chronic kidney disease, or unspecified chronic kidney disease; I48.91 Unspecified atrial fibrillation; E86.0 Dehydration; I08.3 Combined rheumatic disorders of mitral, aortic and tricuspid valves; E78.5 Hyperlipidemia, unspecified; I65.22 Occlusion and stenosis of left carotid artery; W18.39XA Other fall on same level, initial encounter; M10.9 Gout, unspecified; H54.61 Unqualified visual loss, right eye, normal vision left eye; R79.89 Other specified abnormal findings of blood chemistry; N40.0 Benign prostatic hyperplasia without lower urinary tract symptoms; S00.03XA Contusion of scalp, initial encounter; N18.4 Chronic kidney disease, stage 4 (severe); F32.9 Major depressive disorder, single episode, unspecified; F41.9 Anxiety disorder, unspecified; Z95.2 Presence of prosthetic heart valve; Z95.810 Presence of automatic (implantable) cardiac defibrillator; Z82.49 Family history of ischemic heart disease and other diseases of the circulatory system; Z87.891 Personal history of nicotine dependence; Z83.3 Family history of diabetes mellitus; Z95.1 Presence of aortocoronary bypass graft; Z95.3 Presence of xenogenic heart valve; Y93.89 Activity, other specified; Y92.89 Other specified places as the place of occurrence of the external cause; Y99.8 Other external cause status; Z90.89 Acquired absence of other organs; Z82.5 Family history of asthma and other chronic lower respiratory diseases; Z79.899 Other long term (current) drug therapy
CPT/HCPCS: 36415; 70450; 71045; 80048; 80053; 80162; 81001; 82550; 82607; 82746; 83735; 83880; 84443; 84484; 85025; 85610; 85652; 85730; 86141; 86850; 86900; 86901; 93005; 93312; 93886; 94761; 97116; 97163; 97530; 99152; J2250

== ENCOUNTER → 2017-10-22 | Outpatient (CLI) | payer MEDICARE, BC ==
[2017-10-22 09:30] VITALS: BP 109/59
[2017-10-22 10:00] VITALS: BP 110/60
== END | disposition home or self-care (01) ==
LOC: CHF HDHVI 09:47
PROVIDERS: ATTEND Internal Medicine Cardiovascular Disease
DX: I11.0 Hypertensive heart disease with heart failure (principal); I50.9 Heart failure, unspecified; R79.1 Abnormal coagulation profile; E78.5 Hyperlipidemia, unspecified
CPT/HCPCS: G0463

== ENCOUNTER → 2017-12-23 | Outpatient (CLI) | payer MEDICARE, BC ==
[2017-12-23 16:11] LABS: Alanine Aminotransferase 20 U/L (16-61); Albumin 3.5 g/dL (3.4-5.0); Alkaline Phosphatase 108 U/L (45-117); Anion Gap 10 (5-15); Aspartate Aminotransferase 18 U/L (15-37); BUN/Creatinine Ratio 19.3; Bilirubin, Total 0.6 mg/dL (0.2-1.0); Blood Urea Nitrogen 47 mg/dL (7-18); Calcium 8.6 mg/dL (8.5-10.1); Carbon Dioxide 29 mmol/L (21-32); Chloride 100 mmol/L (98-107); GFR African American 33 mL/min; GFR Non-African American 27 mL/min; Glucose 92 mg/dL (74-106); Potassium 3.5 mmol/L (3.5-5.1); Sodium 139 mmol/L (136-145); Total Protein 7.1 g/dL (6.4-8.2)
== END | disposition home or self-care (01) ==
LOC: LAB 14:52
PROVIDERS: ATTEND Internal Medicine
DX: I48.91 Unspecified atrial fibrillation (principal); I11.0 Hypertensive heart disease with heart failure; I50.9 Heart failure, unspecified; Z79.899 Other long term (current) drug therapy
CPT/HCPCS: 36415; 80053; 80162

== ENCOUNTER → 2018-12-10 | Outpatient (CLI) | payer MEDICARE, BC ==
[~2018-12-10] MED LIST changes: -BUME1TAB PO; +BUME1TAB3 PO
[2018-12-10 10:30] LABS: Basophils # (auto) 0.1 uL; Basophils % (auto) 1.9 % (0.0-2.0); Eosinophils # (auto) 0.3 uL; Eosinophils % (auto) 5.5 % (0.0-7.0); Hematocrit 48.3 % (41.0-53.0); Hemoglobin 16.6 g/dL (13.5-17.5); Lymphocytes # (auto) 0.8 uL; Lymphocytes % (auto) 15.6 % (10.0-50.0); Mean Corpuscular Hemoglobin 32.5 pg (28.0-32.0); Mean Corpuscular Hgb Conc. 34.3 g/dL (32.0-36.0); Mean Corpuscular Volume 94.6 fL (80.0-100.0); Monocytes # (auto) 0.5 uL; Monocytes % (auto) 8.7 % (0.0-12.0); Neutrophils # (auto) 3.6 uL; Neutrophils % (auto) 68.3 % (37.0-80.0); Nucleated Red Blood Cells % 0.2 %; Platelet Count (auto) 101 10^3/uL (140-450); Red Blood Cells 5.11 10^6/uL (4.5-5.90); Red Cell Distribution Width 13.9 % (11.8-14.3); White Blood Cell 5.3 10^3/uL (4.4-10.8)
[2018-12-10 10:42] LABS: INR 2.4 (0.9-1.15)
[2018-12-10 11:51] LABS: Albumin 3.8 g/dL (3.4-5.0); Calcium 9.1 mg/dL (8.5-10.1); Potassium 3.8 mmol/L (3.5-5.1)
[2018-12-10 11:57] LABS: BUN/Creatinine Ratio 15.5; Bilirubin, Total 0.8 mg/dL (0.2-1.0); Total Protein 7.5 g/dL (6.4-8.2)
[2018-12-10 11:58] LABS: Free T4 (Free Thyroxine) 1.56 ng/dL (0.89-1.76)
[2018-12-10 11:59] LABS: Prostate Specific Antigen 1.2 ng/mL (0.0-4.0)
[2018-12-10 12:00] LABS: Folate (Folic Acid) 14.75 ng/mL (5.38-24)
== END | disposition home or self-care (01) ==
LOC: LAB 09:54
PROVIDERS: ATTEND Internal Medicine
DX: E55.9 Vitamin D deficiency, unspecified (principal); E03.9 Hypothyroidism, unspecified; C61 Malignant neoplasm of prostate; E29.1 Testicular hypofunction; N39.0 Urinary tract infection, site not specified; D51.9 Vitamin B12 deficiency anemia, unspecified; I11.0 Hypertensive heart disease with heart failure; I50.9 Heart failure, unspecified; Z79.899 Other long term (current) drug therapy
CPT/HCPCS: 36415; 80053; 80061; 82306; 82607; 82746; 83036; 84153; 84403; 84439; 84443; 85025; 85610

== ENCOUNTER → 2019-02-09 | Outpatient (CLI) | payer MEDICARE, BC | END | disposition home or self-care (01) | LOC: LAB 12:24 | PROVIDERS: ATTEND Internal Medicine | DX: G40.89 Other seizures (principal); Z79.899 Other long term (current) drug therapy | CPT/HCPCS: 36415; 80162 ==

== ENCOUNTER → 2019-06-09 | Outpatient (CLI) | payer MEDICARE, BC ==
[~2019-06-09] MED LIST changes: +DIGO0.12 PO; -DIGO0.1262 PO
== END | disposition home or self-care (01) ==
LOC: XYW 10:49
PROVIDERS: ATTEND Internal Medicine
DX: I08.0 Rheumatic disorders of both mitral and aortic valves (principal); I42.0 Dilated cardiomyopathy; I10 Essential (primary) hypertension
CPT/HCPCS: 93306

== ENCOUNTER 2019-07-03 18:36 | Emergency (ER) | payer MEDICARE, OTHER ==
[~2019-07-03] VITALS: Ht 170.2 cm; Wt 83.5 kg
[2019-07-03] MEDS ORDERED: SODIUM CHLORIDE 0.9% 1,000 ML IV ONE (20:00)
[2019-07-03] MEDS ORDERED: ACETAMINOPHEN 325 MG TAB PO ONE (20:00)
[2019-07-03 20:13] LABS: Red Blood Cells 4.34 10^6/uL (4.5-5.90); Red Cell Distribution Width 13.7 % (11.8-14.3)
[2019-07-03 20:19] LABS: Hematocrit 41.5 % (41.0-53.0); Hemoglobin 14.2 g/dL (13.5-17.5); Mean Corpuscular Hemoglobin 32.8 pg (28.0-32.0); Mean Corpuscular Hgb Conc. 34.3 g/dL (32.0-36.0); Mean Corpuscular Volume 95.6 fL (80.0-100.0); Platelet Count (auto) 73 10^3/uL (140-450); White Blood Cell 5.6 10^3/uL (4.4-10.8)
[2019-07-03 20:24] LABS: Basophils % (manual) 0 (0.0-2.0); Blast Cells 0; Eosinophils % (manual) 0 (0-7); Metamyelocytes % 0; Myelocytes % 0; Promyelocytes % 0; Reactive Lymphocytes 0
[2019-07-03 20:28] LABS: Albumin 3.4 g/dL (3.4-5.0); Calcium 8.5 mg/dL (8.5-10.1); Potassium 3.6 mmol/L (3.5-5.1)
[2019-07-03 20:35] LABS: BUN/Creatinine Ratio 14.2; Bilirubin, Total 0.9 mg/dL (0.2-1.0); Total Protein 6.6 g/dL (6.4-8.2)
[2019-07-03 20:57] LABS: Lactic Acid w/Reflex 2.9 mmol/L (0.4-2.0)
[2019-07-03 20:59] LABS: Band Neutrophils % (manual) 10; Lymphocytes % (manual) 3 (10.0-50.0)
[2019-07-03 21:00] LABS: Monocytes % (manual) 5 (0-12)
[2019-07-04 02:10] VITALS: BP 127/84
== END 2019-07-04 02:55 | disposition home or self-care (01) ==
LOC: EDBD 18:36 → ER 18:36
DX: J06.9 Acute upper respiratory infection, unspecified (principal); R06.02 Shortness of breath; I11.0 Hypertensive heart disease with heart failure; I50.9 Heart failure, unspecified; E78.5 Hyperlipidemia, unspecified; M10.9 Gout, unspecified; Z87.891 Personal history of nicotine dependence; Z95.0 Presence of cardiac pacemaker; Z90.89 Acquired absence of other organs
CPT/HCPCS: 36415; 70450; 71045; 80053; 83605; 84484; 85007; 85027; 87040; 87804; 93005; 99285; J7030

== ENCOUNTER → 2019-07-20 | Outpatient (CLI) | payer MEDICARE, OTHER ==
[2019-07-20 15:23] LABS: Basophils # (auto) 0.1 10 ^3/uL (0-0.2); Eosinophils # (auto) 0.1 10 ^3/uL (0-0.8); Eosinophils % (auto) 2.6 % (0.0-7.0); Hematocrit 45.4 % (41.0-53.0); Hemoglobin 15.6 g/dL (13.5-17.5); Lymphocytes # (auto) 1.2 10 ^3/uL (0.4-5.4); Lymphocytes % (auto) 20.9 % (10.0-50.0); Mean Corpuscular Hemoglobin 32.6 pg (28.0-32.0); Mean Corpuscular Hgb Conc. 34.4 g/dL (32.0-36.0); Mean Corpuscular Volume 94.8 fL (80.0-100.0); Monocytes # (auto) 0.5 10 ^3/uL (0-1.3); Monocytes % (auto) 8.2 % (0.0-12.0); Neutrophils # (auto) 3.7 10 ^3/uL (1.6-8.6); Neutrophils % (auto) 66.3 % (37.0-80.0); Nucleated Red Blood Cells % 0.1 %; Platelet Count (auto) 164 10^3/uL (140-450); Red Blood Cells 4.79 10^6/uL (4.5-5.90); White Blood Cell 5.6 10^3/uL (4.4-10.8)
[2019-07-20 15:40] LABS: BUN/Creatinine Ratio 18.8
== END | disposition home or self-care (01) ==
LOC: LAB 15:04
PROVIDERS: ATTEND Internal Medicine
DX: I10 Essential (primary) hypertension (principal)
CPT/HCPCS: 36415; 80048; 85025

== ENCOUNTER → 2020-01-25 | Outpatient (CLI) | payer MEDICARE, OTHER ==
[~2020-01-25] MED LIST changes: -LEVE500T22 PO; +LEVE500T32 PO; -WARF7.5T PO; +WARF7.5T2 PO
[2020-01-25 11:50] LABS: Urine WBC None Seen /hpf (0 - 3)
[2020-01-25 12:00] LABS: Basophils # (auto) 0.1 10 ^3/uL (0-0.2); Basophils % (auto) 0.9 % (0.0-2.0); Eosinophils # (auto) 0.2 10 ^3/uL (0-0.8); Eosinophils % (auto) 3.9 % (0.0-7.0); Hematocrit 44.7 % (41.0-53.0); Hemoglobin 15.2 g/dL (13.5-17.5); Lymphocytes # (auto) 0.9 10 ^3/uL (0.4-5.4); Lymphocytes % (auto) 15.5 % (10.0-50.0); Mean Corpuscular Hemoglobin 33.1 pg (28.0-32.0); Mean Corpuscular Hgb Conc. 33.9 g/dL (32.0-36.0); Mean Corpuscular Volume 97.5 fL (80.0-100.0); Monocytes # (auto) 0.5 10 ^3/uL (0-1.3); Monocytes % (auto) 8.9 % (0.0-12.0); Neutrophils # (auto) 4.2 10 ^3/uL (1.6-8.6); Neutrophils % (auto) 70.8 % (37.0-80.0); Nucleated Red Blood Cells % 0.1 %; Platelet Count (auto) 114 10^3/uL (140-450); Red Blood Cells 4.58 10^6/uL (4.5-5.90); Red Cell Distribution Width 14.4 % (11.8-14.3); Urine Bacteria NONE SEEN /hpf (None Seen); Urine Blood TRACE /uL (Negative); Urine Specific Gravity 1.005 (1.001-1.035); White Blood Cell 5.9 10^3/uL (4.4-10.8)
[2020-01-25 12:36] LABS: Albumin 3.6 g/dL (3.4-5.0); Calcium 8.9 mg/dL (8.5-10.1); Potassium 4.1 mmol/L (3.5-5.1)
[2020-01-25 12:49] LABS: BUN/Creatinine Ratio 15.4; Bilirubin, Total 0.9 mg/dL (0.2-1.0)
== END | disposition home or self-care (01) ==
LOC: LAB 11:41
PROVIDERS: ATTEND Internal Medicine
DX: I10 Essential (primary) hypertension (principal)
CPT/HCPCS: 36415; 80053; 81001; 85025

== ENCOUNTER → 2020-09-22 | Outpatient (CLI) | payer MEDICARE, OTHER | END | disposition home or self-care (01) | LOC: XYW 08:20 | PROVIDERS: ATTEND Internal Medicine | DX: I08.0 Rheumatic disorders of both mitral and aortic valves (principal); I42.0 Dilated cardiomyopathy | CPT/HCPCS: 93306 ==

== ENCOUNTER → 2020-10-26 | Outpatient (CLI) | payer MEDICARE, OTHER ==
[2020-10-26 11:00] LABS: Basophils # (auto) 0.1 10 ^3/uL (0-0.2); Basophils % (auto) 1.1 % (0.0-2.0); Eosinophils # (auto) 0.2 10 ^3/uL (0-0.8); Eosinophils % (auto) 2.8 % (0.0-7.0); Hematocrit 45.1 % (41.0-53.0); Hemoglobin 15.6 g/dL (13.5-17.5); Lymphocytes % (auto) 15.1 % (10.0-50.0); Mean Corpuscular Hemoglobin 33.3 pg (28.0-32.0); Mean Corpuscular Hgb Conc. 34.7 g/dL (32.0-36.0); Mean Corpuscular Volume 96.2 fL (80.0-100.0); Monocytes # (auto) 0.5 10 ^3/uL (0-1.3); Monocytes % (auto) 8.5 % (0.0-12.0); Neutrophils # (auto) 4.6 10 ^3/uL (1.6-8.6); Neutrophils % (auto) 72.5 % (37.0-80.0); Nucleated Red Blood Cells % 0.2 %; Platelet Count (auto) 115 10^3/uL (140-450); Red Blood Cells 4.69 10^6/uL (4.5-5.90); Red Cell Distribution Width 13.9 % (11.8-14.3); White Blood Cell 6.3 10^3/uL (4.4-10.8)
[2020-10-26 11:18] LABS: INR 2.36 (0.9-1.15)
[2020-10-26 11:23] LABS: Urine Bacteria NONE SEEN /hpf (None Seen); Urine Blood TRACE /uL (Negative); Urine Specific Gravity 1.006 (1.001-1.035); Urine WBC <1 /hpf (0 - 3)
[2020-10-26 11:49] LABS: Potassium 4.1 mmol/L (3.5-5.1)
[2020-10-26 12:04] LABS: Albumin 3.7 g/dL (3.4-5.0); BUN/Creatinine Ratio 14.4; Bilirubin, Total 0.9 mg/dL (0.2-1.0); Calcium 9.7 mg/dL (8.5-10.1); Uric Acid 7.2 mg/dL (3.5-7.2)
== END | disposition home or self-care (01) ==
LOC: LAB 10:37
PROVIDERS: ATTEND Internal Medicine
DX: N18.30 Chronic kidney disease, stage 3 unspecified (principal); I50.22 Chronic systolic (congestive) heart failure
CPT/HCPCS: 36415; 80053; 80061; 81001; 84550; 85025; 85610

== ENCOUNTER → 2021-11-21 | Outpatient (CLI) | payer MEDICARE, OTHER ==
[2021-11-21 11:04] LABS: Basophils # (auto) 0.1 10 ^3/uL (0-0.2); Basophils % (auto) 1.2 % (0.0-2.0); Eosinophils # (auto) 0.3 10 ^3/uL (0-0.8); Hematocrit 44.5 % (41.0-53.0); Hemoglobin 14.9 g/dL (13.5-17.5); Lymphocytes # (auto) 0.8 10 ^3/uL (0.4-5.4); Mean Corpuscular Hemoglobin 31.6 pg (28.0-32.0); Mean Corpuscular Hgb Conc. 33.6 g/dL (32.0-36.0); Mean Corpuscular Volume 94.1 fL (80.0-100.0); Monocytes # (auto) 0.5 10 ^3/uL (0-1.3); Monocytes % (auto) 8.8 % (0.0-12.0); Neutrophils # (auto) 4.2 10 ^3/uL (1.6-8.6); Nucleated Red Blood Cells % 0.6 %; Red Blood Cells 4.73 10^6/uL (4.5-5.90); White Blood Cell 5.8 10^3/uL (4.4-10.8)
[2021-11-21 11:57] LABS: Albumin 3.5 g/dL (3.4-5.0); Bilirubin, Total 0.9 mg/dL (0.2-1.0); Calcium 8.8 mg/dL (8.5-10.1); Total Protein 6.8 g/dL (6.4-8.2)
== END | disposition home or self-care (01) ==
LOC: LAB 10:45
PROVIDERS: ATTEND Internal Medicine
DX: R73.03 Prediabetes (principal); I30.0 Acute nonspecific idiopathic pericarditis; I10 Essential (primary) hypertension
CPT/HCPCS: 36415; 80053; 80061; 83036; 84443; 85025

== ENCOUNTER → 2022-01-03 | Outpatient (CLI) | payer MEDICARE, OTHER | END | disposition home or self-care (01) | LOC: LAB 09:19 | PROVIDERS: ATTEND Internal Medicine | DX: I48.91 Unspecified atrial fibrillation (principal) | CPT/HCPCS: 36415; 80162 ==

== ENCOUNTER 2022-02-27 10:28 | Emergency (ER) | payer MEDICARE, OTHER ==
[~2022-02-27] VITALS: Ht 170.2 cm; Wt 82.0 kg
[2022-02-27 10:43] VITALS: BP 108/68
== END 2022-02-27 16:34 | disposition left against medical advice (07) ==
LOC: ER 10:28
DX: Z48.00 Encounter for change or removal of nonsurgical wound dressing (principal); Z53.21 Procedure and treatment not carried out due to patient leaving prior to being seen by health care provider

== ENCOUNTER → 2022-08-27 | Outpatient (CLI) | payer MEDICARE, OTHER | END | disposition home or self-care (01) | LOC: LAB 15:17 | PROVIDERS: ATTEND Internal Medicine | DX: T46.0X1A Poisoning by cardiac-stimulant glycosides and drugs of similar action, accidental (unintentional), initial encounter (principal); X58.XXXA Exposure to other specified factors, initial encounter; Y93.89 Activity, other specified; Y92.89 Other specified places as the place of occurrence of the external cause; Y99.8 Other external cause status | CPT/HCPCS: 36415; 80162 ==

== ENCOUNTER 2022-09-11 17:00 | Inpatient (IN) | payer MEDICARE, OTHER ==
[~2022-09-11] VITALS: Ht 170.2 cm; Wt 86.7 kg
[2022-09-11] MEDS ORDERED: ACETAMINOPHEN 325 MG TAB PO PRN (19:15)
[2022-09-11] MEDS ORDERED: SODIUM CHLORIDE 0.9% 1,000 ML IV SCH (19:15)
[2022-09-11] MEDS ORDERED: MAALOX PLUS or MAALOX 30 ML PO PRN (19:15)
[2022-09-11] MEDS ORDERED: MORPHINE SULFATE INJ 2 MG/ml SYRG IV PRN ×2 (19:15)
[2022-09-11] MEDS ORDERED: DOCUSATE SOD 100 MG CAP PO PRN (19:15)
[2022-09-11] MEDS ORDERED: TEMAZEPAM 15 MG CAP PO PRN (19:15)
[2022-09-11] MEDS ORDERED: NITROGLYCERIN 0.4 MG SL TAB SL PRN (19:15)
[2022-09-11] MEDS ORDERED: ONDANSETRON HCL 4 MG/2 ML VIAL IV PRN (19:15)
[2022-09-11] MEDS ORDERED: HYDROcodone-ACET 5/325MG TAB PO PRN (19:15)
[2022-09-11] MEDS ORDERED: ALL100T PO (19:17)
[2022-09-11] MEDS ORDERED: CARV6.2551 PO (19:17)
[2022-09-11 21:08] LABS: Mean Corpuscular Hemoglobin 32.4 pg (28.0-32.0); Monocytes # (auto) 0.5 10 ^3/uL (0-1.3)
[2022-09-11 21:15] LABS: Calcium 8.6 mg/dL (8.5-10.1); Potassium 3.9 mmol/L (3.5-5.1)
[2022-09-11 21:20] LABS: Albumin 3.5 g/dL (3.4-5.0); BUN/Creatinine Ratio 18.3 (10.0-20.0); Bilirubin, Total 0.8 mg/dL (0.2-1.0); Magnesium 2.7 mg/dL (1.6-2.6); Phosphorus 3.1 mg/dL (2.5-4.90); Total Protein 6.8 g/dL (6.4-8.2)
[2022-09-11 21:23] LABS: Free T4 (Free Thyroxine) 1.5 ng/dL (0.89-1.76)
[2022-09-11 21:24] LABS: INR 3.04 (0.9-1.15); Partial Thromboplastin Time 37.1 sec (24.6-33.4)
[2022-09-11 21:36] LABS: Basophils # (auto) 0.1 10 ^3/uL (0-0.2); Basophils % (auto) 1.1 % (0.0-2.0); Eosinophils # (auto) 0.4 10 ^3/uL (0-0.8); Eosinophils % (auto) 7.3 % (0.0-7.0); Hematocrit 44.6 % (41.0-53.0); Hemoglobin 14.9 g/dL (13.5-17.5); Mean Corpuscular Hgb Conc. 33.4 g/dL (32.0-36.0); Monocytes % (auto) 8.9 % (0.0-12.0); Neutrophils # (auto) 3.7 10 ^3/uL (1.6-8.6); Neutrophils % (auto) 64.7 % (37.0-80.0); Nucleated Red Blood Cells % 0.4 %; Red Cell Distribution Width 15.1 % (11.8-14.3); White Blood Cell 5.7 10^3/uL (4.4-10.8)
[2022-09-11 22:00] VITALS: BP 139/64
[2022-09-11 22:50] LABS: Urine Bacteria NONE SEEN /hpf (None Seen); Urine Blood TRACE /uL (Negative); Urine Specific Gravity 1.013 (1.001-1.035); Urine WBC 1 /hpf (0 - 3)
[2022-09-12 04:57] VITALS: BP 112/54
[2022-09-12 06:12] LABS: INR 2.86 (0.9-1.15)
[2022-09-12 09:00] VITALS: BP 112/73
[2022-09-12] MEDS: DIGOXIN 0.125 MG TAB PO SCH (10:04)
[2022-09-12 12:30] VITALS: BP 114/68
[2022-09-12 16:34] VITALS: BP 121/67
[2022-09-12] MEDS ORDERED: WARFARIN SODIUM 2.5 MG TAB PO ONE (17:00)
[2022-09-12 22:00] VITALS: BP 116/73
[2022-09-13 05:00] VITALS: BP 105/69
[2022-09-13 05:58] LABS: BUN/Creatinine Ratio 20.5 (10.0-20.0); Calcium 8.7 mg/dL (8.5-10.1); Potassium 3.8 mmol/L (3.5-5.1)
[2022-09-13 06:10] LABS: INR 2.58 (0.9-1.15); Partial Thromboplastin Time 34.2 sec (24.6-33.4)
[2022-09-13 08:40] VITALS: BP 110/69
[2022-09-13] MEDS: DIGOXIN 0.125 MG TAB PO SCH (09:36)
[2022-09-13] MEDS ORDERED: BUME1TAB3 PO (12:12)
[2022-09-13 12:55] VITALS: BP 117/76
[2022-09-13 14:04] VITALS: BP 117/76
[2022-09-13] MEDS ORDERED: WARFARIN SODIUM 2 MG TAB PO ONE (17:00)
== END 2022-09-13 16:29 | disposition home or self-care (01) | DRG 312 ==
LOC: WEST WING 17:00 → TELE-WESTW 22:15
PROVIDERS: ADMIT Internal Medicine; ATTEND Internal Medicine
DX: I95.1 Orthostatic hypotension (principal); I13.0 Hypertensive heart and chronic kidney disease with heart failure and stage 1 through stage 4 chronic kidney disease, or unspecified chronic kidney disease; I50.22 Chronic systolic (congestive) heart failure; N18.4 Chronic kidney disease, stage 4 (severe); I42.9 Cardiomyopathy, unspecified; Z82.49 Family history of ischemic heart disease and other diseases of the circulatory system; Z82.5 Family history of asthma and other chronic lower respiratory diseases; Z83.3 Family history of diabetes mellitus; Z95.1 Presence of aortocoronary bypass graft; Z95.2 Presence of prosthetic heart valve; I65.22 Occlusion and stenosis of left carotid artery
CPT/HCPCS: 36415; 70450; 71045; 80048; 80053; 80162; 81001; 82607; 82746; 83735; 83880; 84100; 84439; 84443; 85025; 85610; 85730; 93886; 97110; 97116; 97163; G0378

== ENCOUNTER → 2023-04-01 | Outpatient (CLI) | payer MEDICARE, OTHER ==
[~2023-04-01] MED LIST changes: +ALL100T PO; -ALLO300T2 PO; +ASPI-628 PO; -ASPI1TAB37 PO; -LEVE500T32 PO; +LEVE500T40 PO; -NEBI20TA2 PO; -TAM04C PO; +TAMS-35 PO
[2023-04-01 10:52] LABS: Basophils # (auto) 0 10 ^3/uL (0-0.2); Basophils % (auto) 0.6 % (0.0-2.0); Eosinophils # (auto) 0.4 10 ^3/uL (0-0.8); Eosinophils % (auto) 5.1 % (0.0-7.0); Hematocrit 43.9 % (41.0-53.0); Hemoglobin 14.8 g/dL (13.5-17.5); Lymphocytes # (auto) 0.7 10 ^3/uL (0.4-5.4); Lymphocytes % (auto) 9.6 % (10.0-50.0); Mean Corpuscular Hemoglobin 32.4 pg (28.0-32.0); Mean Corpuscular Hgb Conc. 33.6 g/dL (32.0-36.0); Mean Corpuscular Volume 96.4 fL (80.0-100.0); Monocytes # (auto) 0.5 10 ^3/uL (0-1.3); Monocytes % (auto) 7.7 % (0.0-12.0); Neutrophils # (auto) 5.5 10 ^3/uL (1.6-8.6); Nucleated Red Blood Cells % 0.5 %; Red Blood Cells 4.55 10^6/uL (4.5-5.90); Red Cell Distribution Width 14.6 % (11.8-14.3); White Blood Cell 7.1 10^3/uL (4.4-10.8)
[2023-04-01 11:17] LABS: Anion Gap 7 (5-15); Carbon Dioxide 31 mmol/L (20-30); Chloride 102 mmol/L (98-107); Potassium 3.7 mmol/L (3.5-5.1); Sodium 140 mmol/L (136-145)
[2023-04-01 11:18] LABS: Calcium 9.3 mg/dL (8.5-10.1)
[2023-04-01 11:23] LABS: BUN/Creatinine Ratio 15.4 (10.0-20.0); Blood Urea Nitrogen 39 mg/dL (9-23); Glucose 100 mg/dL (74-106); Triglycerides 77 mg/dL (< 150)
[2023-04-01 11:24] LABS: Cholesterol 127 mg/dL (< 200); LDL Cholesterol 59 mg/dL (< 100)
[2023-04-01 11:25] LABS: HDL Cholesterol 51 mg/dL (40-59)
== END | disposition home or self-care (01) ==
LOC: LAB 10:13
PROVIDERS: ATTEND Internal Medicine
DX: I10 Essential (primary) hypertension (principal); E55.9 Vitamin D deficiency, unspecified; E11.9 Type 2 diabetes mellitus without complications
CPT/HCPCS: 36415; 80048; 80061; 82607; 83036; 84443; 85025

== ENCOUNTER → 2023-07-08 | Outpatient (CLI) | payer MEDICARE, OTHER | END | disposition home or self-care (01) | LOC: XYW 09:17 | PROVIDERS: ATTEND Internal Medicine | DX: M71.22 Synovial cyst of popliteal space [Baker], left knee (principal); I73.9 Peripheral vascular disease, unspecified; R73.03 Prediabetes | CPT/HCPCS: 93925 ==

== ENCOUNTER → 2024-02-06 | Outpatient (CLI) | payer MEDICARE, OTHER ==
[~2024-02-06] MED LIST changes: +ALBUAER3 IN; +AMLO1TAB22 PO; +DOXY-286 PO; +FURO1TAB33 PO; +GABA-1308 PO; +TAMS0.4C39 PO
[2024-02-06 11:29] LABS: Urine Bacteria None Seen /hpf (None Seen)
[2024-02-06 12:03] LABS: Basophils # (auto) 0.1 10 ^3/uL (0-0.2); Basophils % (auto) 1.2 % (0.0-2.0); Eosinophils # (auto) 0.3 10 ^3/uL (0-0.8); Hematocrit 44.8 % (41.0-53.0); Lymphocytes # (auto) 0.5 10 ^3/uL (0.4-5.4); Lymphocytes % (auto) 8.5 % (10.0-50.0); Mean Corpuscular Hemoglobin 32.9 pg (28.0-32.0); Mean Corpuscular Hgb Conc. 33.4 g/dL (32.0-36.0); Mean Corpuscular Volume 98.5 fL (80.0-100.0); Monocytes # (auto) 0.4 10 ^3/uL (0-1.3); Monocytes % (auto) 6.9 % (0.0-12.0); Neutrophils % (auto) 78.4 % (37.0-80.0); Nucleated Red Blood Cells % 0.3 %; Platelet Count (auto) 112 10^3/uL (140-450); Red Blood Cells 4.55 10^6/uL (4.5-5.90); Red Cell Distribution Width 14.8 % (11.8-14.3); White Blood Cell 6.4 10^3/uL (4.4-10.8)
[2024-02-06 12:10] LABS: Urine Blood 1+ /uL (Negative); Urine Clarity Clear (Clear); Urine Color Light-Yellow (Yellow); Urine Protein, UAD 2+ (Negative); Urine Specific Gravity 1.016 (1.001-1.035); Urine Urobilinogen Normal (Negative); Urine WBC 1 /hpf (0 - 3); Urine pH 6.5 (5.0-9.0)
[2024-02-06 12:23] LABS: INR 3.51 (0.9-1.15); Partial Thromboplastin Time 36.7 SEC (24.5-34.5); Prothrombin Time 33.9 sec (9.3-11.8)
[2024-02-06 12:45] LABS: Alanine Aminotransferase 14 U/L (7-40); Albumin 4.4 g/dL (3.2-4.8); Alkaline Phosphatase 92 U/L (46-116); Anion Gap 9 (5-15); Aspartate Aminotransferase 15 U/L (13-40); Blood Urea Nitrogen 31 mg/dL (9-23); Calcium 9.9 mg/dL (8.7-10.4); Carbon Dioxide 26 mmol/L (20-31); Chloride 107 mmol/L (98-107); Glucose 91 mg/dL (74-106); LDL Cholesterol 60 mg/dL (< 100); Potassium 4.6 mmol/L (3.5-5.1); Prostate Specific Antigen 1.35 ng/mL (0.0-4.0); Sodium 142 mmol/L (136-145); Triglycerides 63 mg/dL (< 150)
[2024-02-06 12:46] LABS: Cholesterol 132 mg/dL (< 200); HDL Cholesterol 57 mg/dL (40-59); Total Protein 6.8 g/dL (5.7-8.2)
== END | disposition home or self-care (01) ==
LOC: LAB 10:58
PROVIDERS: ATTEND Internal Medicine
DX: I11.0 Hypertensive heart disease with heart failure (principal); I50.9 Heart failure, unspecified; E11.9 Type 2 diabetes mellitus without complications; E55.9 Vitamin D deficiency, unspecified; E53.8 Deficiency of other specified B group vitamins; Z79.01 Long term (current) use of anticoagulants; Z12.5 Encounter for screening for malignant neoplasm of prostate
CPT/HCPCS: 36415; 80053; 80061; 81001; 82306; 82607; 83036; 84443; 85025; 85610; 85730; G0103; 84153

== ENCOUNTER 2024-03-29 10:58 | Inpatient (IN) | payer MEDICARE, OTHER ==
[~2024-03-29] VITALS: Ht 167.6 cm; Wt 85.7 kg
[~2024-03-29 10:58] MED LIST changes: -ALBUAER3 IN; -AMLO1TAB22 PO; -DOXY-286 PO; -FURO1TAB33 PO; -TAMS0.4C39 PO
--- NOTE | 2024-03-29 11:12 | ED.PDOC ---
History of Present Illness HPI Comments 88-year-old male presents with a chief complaint of SOB x 4 days with associated generalized weakness. Patient reports to EMS that he has been feeling progressively SOB for the past x 4 days. Patient also reports that he has been feeling generalized weakness. Patient is on Coumadin for a past aortic valve larson rgery. No other symptoms or modifying factors present at this time. Time Seen by MD: 11:03 Primary Care Provider: YOUSIF Reviewed Notes: Nurses Notes, Medications, Allergies Allergies: Coded Allergies: NO KNOWN ALLERGIES (Unverified , 06/09/17) Home Meds Active Scripts Bumetanide (Bumetanide) 1 Mg Tab, 1 MG PO QAM for 30 Days, #30 TAB Prov:REBECCA DODD MD 09/13/22 Reported Medications Allopurinol (ZYLOPRIM TABLET) 100 Mg Tb, 1 TAB PO DAILY, #30 TAB 5 Refills 09/11/22 Tamsulosin Hcl (Flomax) 0.4 Mg Cap, 1 CAP PO DAILY, #30 CAP 11 Refills 06/09/17 Warfarin Sodium (Coumadin) 7.5 Mg Tab, 1 TAB PO DAILY, #90 TAB 3 Refills 06/09/17 Rosuvastatin Calcium (Crestor) 20 Mg Tab, 1 TAB PO DAILY, #30 TAB 5 Refills 06/09/17 Fish Oil (Fish Oil) 1,200 Mg Cap, 1200 MG PO DAILY, CAP 06/09/17 Digoxin (Digoxin) 125 Mcg Tab, 125 MCG PO MWF, TAB 06/09/17 Cholecalciferol (VITAMIN D) 2,000 Unit Tab, 2000 UNIT PO DAILY, TAB 06/09/17 Aspirin (Aspirin Adult Low Dose) 81 Mg Tab, 81 MG PO DAILY, TAB 06/09/17 Levetiracetam (Keppra) 500 Mg Tab, 1 TAB PO BID, #180 TAB 3 Refills 05/21/17 Information Source: Patient, Emergency Med Personnel Mode of Arrival: EMS Severity: Moderate Timing: Days Duration: Since onset Prehospital treatment: None Past Medical History PAST MEDICAL HISTORY: Anxiety, CHF, Depression, Gout, High Lipids, HTN, Seizures Surgical History: Pacemaker, Tonsillectomy Family History Family History: Family hx of DM, Family hx of HTN Social History Smoker: Quit Greater Than 1 Year, Cigarettes Alcohol: Denies ETOH Use Drugs: Denies Drug Use Lives In: Home Constitutional: reports: weakness; denies: chills, diaphoresis, fatigue, fever, malaise, sweats, others EENTM: denies: blurred vision, double vision, ear bleeding, ear discharge, ear drainage, ear pain, ear ringing, eye pain, eye redness, hearing loss, mouth pain, mouth swelling, nasal discharge, nose bleeding, nose congestion, nose pain, photophobia, tearing, throat pain, throat swelling, voice changes, others Respiratory: reports: shortness of breath; denies: cough, hemoptysis, orthopnea, SOB at rest, SOB with excertion, stridor, wheezing, others Cardiovascular: denies: chest pain, dizzy spells, diaphoresis, Dyspnea on exertion, edema, irregular heart beat, left arm pain, lightheadedness, palpitations, PND, syncope, others Gastrointestinal: denies: abdomen distended, abdominal pain, blood streaked bowels, constipated, diarrhea, dysphagia, difficulty swallowing, hematemesis, melena, nausea, poor appetite, poor fluid intake, rectal bleeding, rectal pain, vomiting, others Genitourinary: denies: burning, dysuria, flank pain, frequency, hematuria, incontinence, penile discharge, penile sore, pain, testicle pain, testicle swelling, urgency, others Neurological: denies: dizziness, fainting, headache, left sided numbness, left sided weakness, numbness, paresthesia, pre-existing deficit, right sided numbness, right sided weakness, seizure, speech problems, tingling, tremors, weakness, others Musculoskeletal: denies: back pain, gout, joint pain, joint swelling, muscle pain, muscle stiffness, neck pain, others Integumetry: denies: bruises, change in color, change in hair/nails, dryness, laceration, lesions, lumps, rash, wounds, others Allergic/Immunocompromised: denies: Difficulty Healing, Frequent Infections, Hives, Itching, others Hematologic/Lymphatic: denies: anemia, blood clots, easy bleeding, easy bruising, swollen glands, others Endocrine: denies: excessive hunger, excessive sweating, excessive thirst, excessive urination, flushing, intolerance to cold, intolerance to heat, unexplained weight gain, unexplained weight loss, others Psychiatric: denies: anxiety, bipolar disorder, depression, hopeless, panic disorder, schizophrenia, sleepless, suicidal, others All Other Systems: Reviewed and Negative Physical Exam General Appearance: Moderate Distress HEENT: Normal ENT Inspection, Pharynx Normal, TMs Normal Neck: Full Range of Motion, Non-Tender, Normal, Normal Inspection Respiratory: Chest Non-Tender, Lungs Clear, No Accessory Muscle Use, No Respiratory Distress, Normal Breath Sounds Cardiovascular: No Edema, No JVD, No Murmur, No Gallop, Normal Peripheral Pulses, Regular Rate/Rhythm Breast Exam: Deferred Gastrointestinal: No Organomegaly, Non Tender, No Pulsatile Mass, Normal Bowel Sounds, Soft Genitalia: Deferred Pelvic: Deferred Rectal: Deferred Extremities: No calf tenderness, Normal capillary refill, Pedal edema Musculoskeletal : Apperance: Normal Neurologic: Alert, registered route associate II-XII nml as Tested, Motor Weakness, Normal Affect, Normal Mood, No Sensory Deficits Cerebellar Function: Normal Reflexes: Normal Skin: Dry, Normal Color, Warm Lymphatic: No Adenopathy Was a procedure done? Was a procedure done?: No EKG EKG : Pulse Rate (adult): 65 [place]: Normal Cardiac Rhythm: NSR Block: None ST: Nonsp Differential Dx Considerations may include: ACS, IL, myocardial ischemia X-Ray, Labs, Meds, VS Vital Signs Date Time Temp Pulse Resp B/P (MAP) Pulse Ox O2 Delivery O2 Flow Rate FiO2 03/29/24 11:51 65 03/29/24 11:19 22 99 Room Air* 2 N/A Nasal Cannula* 03/29/24 11:13 98.9 75 22 154/90 (111) 99 Lab Test 03/29/24 11:20 Range/Units White Blood Count 5.9 4.4-10.8 10^3/uL Red Blood Count 4.07 L 4.5-5.90 10^6/uL Hemoglobin 13.5 13.5-17.5 g/dL Hematocrit 39.9 L 41.0-53.0 % Mean Corpuscular Volume 98.2 80.0-100.0 fL Mean Corpuscular Hemoglobin 33.3 H 28.0-32.0 pg Mean Corpuscular Hemoglobin Concent 33.9 32.0-36.0 g/dL Red Cell Distribution Width 15.4 H 11.8-14.3 % Platelet Count 106 L 140-450 10^3/uL Mean Platelet Volume 9.1 6.9-10.8 fL Neutrophils (%) (Auto) 79.8 37.0-80.0 % Lymphocytes (%) (Auto) 7.7 L 10.0-50.0 % Monocytes (%) (Auto) 8.7 0.0-12.0 % Eosinophils (%) (Auto) 3.2 0.0-7.0 % Basophils (%) (Auto) 0.6 0.0-2.0 % Neutrophils # (Auto) 4.7 1.6-8.6 10 ^3/uL Lymphocytes # (Auto) 0.5 0.4-5.4 10 ^3/uL Monocytes # (Auto) 0.5 0-1.3 10 ^3/uL Eosinophils # (Auto) 0.2 0-0.8 10 ^3/uL Basophils # (Auto) 0 0-0.2 10 ^3/uL Nucleated Red Blood Cells 0.1 % Sodium Level 141 136-145 mmol/L Potassium Level 4.7 3.5-5.1 mmol/L Chloride Level 112 H 98-107 mmol/L Carbon Dioxide Level 23 20-31 mmol/L Anion Gap 6 5-15 Blood Urea Nitrogen 41 H 9-23 mg/dL Creatinine 2.38 H 0.700-1.30 mg/dL Glomerular Filtration Rate Calc 26 >90 mL/min BUN/Creatinine Ratio 17.2 10.0-20.0 Serum Glucose 103 74-106 mg/dL Calcium Level 9.4 8.7-10.4 mg/dL Troponin I High Sensitivity 18 </=54 ng/L B-Type Natriuretic Peptide 140.58 0-100 pg/mL The chest x-ray shows: IMPRESSION: Cardiomegaly with pulmonary vascular congestion. Patchy bibasilar opacities with small bilateral pleural effusions. The patient's CBC is within normal limits The chemistry panel shows a BUN of 41 and a creatinine of 2.38 The BNP is 140 The troponin level is negative At this time, the patient was being admitted to the hospitalist A cardiology consult will be obtained. The patient was also given Lasix 40 mg IV push for the acute on chronic diastolic heart failure. Images Reviewed?: Images reviewed and evaluated by me Time of 1ST Reevaluation: 11:33 Reevaluation 1ST: Unchanged Patient Education/Counseling: Diagnosis, Treatment, Prognosis Family Education/Counseling: No Family Present Departure 1 Departure Time of Disposition: 13:04 Impression: Primary Impression: Acute on chronic diastolic heart failure Disposition: 09 ADMITTED INPATIENT Admit to: Tele Condition: Fair Critical Care Note Critical Care Time?: Yes (35 min-critical care time only) Stability Stability form required: Yes Unstable for transfer: Telemetry monitoring (Telemetry monitoring required), ED Physician Assesment (Clinical assesment) Heart Score Heart Score: Heart Score Response (Comments) Value History Moderate Suspicious 1 EKG Normal 0 Age >65 2 Risk Factors >3 or Hx ASHD 2 Troponin Normal limit 0 Total 5 I personally scribed for STEVE QUEEN MD ([email or web address]) on 03/29/24 at 11:12. Electronically submitted by Ben Chapman ([email or web address]). STEVE QUEEN MD Mar 29, 2024 11:12
[2024-03-29 11:33] LABS: Basophils # (auto) 0 10 ^3/uL (0-0.2); Basophils % (auto) 0.6 % (0.0-2.0); Eosinophils # (auto) 0.2 10 ^3/uL (0-0.8); Eosinophils % (auto) 3.2 % (0.0-7.0); Hematocrit 39.9 % (41.0-53.0); Hemoglobin 13.5 g/dL (13.5-17.5); Lymphocytes # (auto) 0.5 10 ^3/uL (0.4-5.4); Lymphocytes % (auto) 7.7 % (10.0-50.0); Mean Corpuscular Hemoglobin 33.3 pg (28.0-32.0); Mean Corpuscular Hgb Conc. 33.9 g/dL (32.0-36.0); Mean Corpuscular Volume 98.2 fL (80.0-100.0); Monocytes # (auto) 0.5 10 ^3/uL (0-1.3); Monocytes % (auto) 8.7 % (0.0-12.0); Neutrophils # (auto) 4.7 10 ^3/uL (1.6-8.6); Neutrophils % (auto) 79.8 % (37.0-80.0); Nucleated Red Blood Cells % 0.1 %; Platelet Count (auto) 106 10^3/uL (140-450); Red Blood Cells 4.07 10^6/uL (4.5-5.90); Red Cell Distribution Width 15.4 % (11.8-14.3); White Blood Cell 5.9 10^3/uL (4.4-10.8)
[2024-03-29 11:41] LABS: Chloride 112 mmol/L (98-107); Potassium 4.7 mmol/L (3.5-5.1); Sodium 141 mmol/L (136-145)
[2024-03-29 11:42] LABS: Anion Gap 6 (5-15); Carbon Dioxide 23 mmol/L (20-31)
[2024-03-29 11:43] LABS: Calcium 9.4 mg/dL (8.7-10.4)
--- NOTE | 2024-03-29 11:46 | DVH ---
XY CHEST PORTABLE, HISTORY: sob COMPARISON: CHEST PORTABLE on DOS: 07/07/19, CHEST PORTABLE on DOS: 07/03/19 CHEST PORTABLE on DOS: 07/07/19, CHEST PORTABLE on DOS: 07/03/19 TECHNICAL DATA: 1 view of the chest was obtained. FINDINGS: Lines and tubes: A cardiac pacer/defibrillator is seen. Cardiomediastinal silhouette: Enlarged Pulmonary vasculature: Prominent Lung expansion: low Lung airspace: Patchy bibasilar opacities. Lung interstitium: increased Pleura: small effusion. Pneumothorax: no Bones: Unremarkable Other: no IMPRESSION: Cardiomegaly with pulmonary vascular congestion. Patchy bibasilar opacities with small bilateral pleural effusions.
[2024-03-29 11:48] LABS: BUN/Creatinine Ratio 17.2 (10.0-20.0); Blood Urea Nitrogen 41 mg/dL (9-23); Glucose 103 mg/dL (74-106)
[2024-03-29 13:53] LABS: COVID19 ANTIGEN SOFIA FIA NEGATIVE (NEGATIVE); Rapid Influenza A Negative (Negative); Rapid Influenza B Negative (Negative)
[2024-03-29] MEDS ORDERED: ONDANSETRON HCL 4 MG/2 ML VIAL IV PRN (14:00)
[2024-03-29] MEDS ORDERED: DOCUSATE SOD 100 MG CAP PO PRN (14:00)
[2024-03-29] MEDS ORDERED: ACETAMINOPHEN 325 MG TAB PO PRN (14:00)
[2024-03-29] MEDS ORDERED: HYDROcodone-ACET 5/325MG TAB PO PRN (14:00)
[2024-03-29] MEDS ORDERED: hydrALAZINE HCL 20 MG/ML VL IV PRN (14:00)
--- NOTE | 2024-03-29 15:25 | DVHHP2 ---
History of Present Illness Reason for Visit: Acute on chronic systolic heart failure History of Present Illness The patient is a 88-year-old male with past medical history of CHF, gout, depression, seizures, anxiety, HLD, and hypertension who presented to [facility] ED with complaint of shortness of breaths. Patient reports symptoms progressively get worse with generalized weakness, progressive shortness of breath with hypoxia, getting worse today that prompted this visit. Patient was seen and evaluated in the ED, laboratory data shows WBC 5.9, platelets 106, sodium 141, potassium 4.7, BUN 41, creatinine 2.38, glucose 103, troponin 18, BNP 140.58, blood pressure 154/90, heart rate 76, temperature 98 point 9 F, O2 saturation 99% on oxygen. Chest x-ray revealing cardiomegaly with pulmonary vascular congestion; patchy bibasilar opacities with small bilateral pleural effusions. Patient was started on IV Lasix, please see medication orders section in the computer. On my assessment, patient denies chest pain, no headache, no dizziness, no diaphoresis, currently on oxygen, no nausea, no vomiting, no fever, no chills. Patient was admitted for further evaluation and medical management. Past Medical History Anxiety, CHF, Depression, Gout, High Lipids, HTN, Seizures Past Surgical History Pacemaker, Tonsillectomy, Aortic valve surgery Family History Reviewed, noncontributory to the management of this case. Past Social History The patient lives at home, quit smoking greater than 1 year, denies alcohol or illicit drugs abuse. Review of Systems Constitutional: Yes: Weakness; No: Fever, Chills, Sweats, Malaise, Other Eyes: No: Pain, Vision change, Conjunctivae inflammation, Eyelid inflammation, Other, Redness ENT: No: Ear pain, Ear discharge, Nose pain, Nose discharge, Nose congestion, Mouth pain, Mouth swelling, Throat pain, Throat swelling, Other Respiratory: Shortness of breath, SOB with excertion, Other (SOB at rest); No: Cough, Dry, Wheezing, Hemoptysis, Pleuritic Pain, Sputum, Wheezing Cardiovascular: No: Chest Pain, Palpitations, Orthopnea, Paroxysmal Noc. Dyspnea, Edema, Lt Headedness, Other Gastrointestinal: No: Nausea, Vomiting, Abdominal Pain, Diarrhea, Constipation, Melena, Hematochezia, Other Genitourinary: No Dysuria, No Frequency, No Incontinence, No Hematuria, No Retention, No Other Musculoskeletal: No: other, neck pain, shoulder pain, arm pain, back pain, hand pain, leg pain, foot pain Skin: No: Rash, Lesions, Jaundice, Bruising, Other Neurological: No: Weakness, Numbness, Incoordination, Change in speech, Confusion, Seizures, Other Allergies: Coded Allergies: NO KNOWN ALLERGIES (Unverified , 06/09/17) Medications Current Medications Medications Dose Ordered Sig/Nelsy Route Start Time Stop Time Status Last Admin Dose Admin Aspirin 81 mg DAILY PO 03/30/24 10:00 Carvedilol 3.125 mg Q12HR PO 03/29/24 22:00 Atorvastatin Calcium 10 mg HS PO 03/29/24 22:00 Hydralazine HCl 10 mg Q6HP PRN IV 03/29/24 14:00 Furosemide 40 mg DAILY IV 03/30/24 10:00 Sodium Chloride 10 ml Q8HR IV 03/29/24 14:00 Acetaminophen/ Hydrocodone Bitart 1 tab Q4HP PRN PO 03/29/24 14:00 Ondansetron HCl 4 mg Q4HP PRN IV 03/29/24 14:00 Docusate Sodium 100 mg BIDPRN PRN PO 03/29/24 14:00 Acetaminophen 650 mg Q6HP PRN PO 03/29/24 14:00 Levetiracetam 100 ml @ 400 mls/hr BID IV 03/29/24 22:00 Exam Vital Signs Vital Signs Date Time Temp Pulse Resp B/P (MAP) Pulse Ox O2 Delivery O2 Flow Rate FiO2 03/29/24 15:01 75 16 98 Nasal Cannula 3.0 03/29/24 15: 97.8 114/79 (91) 97.8 03/29/24 11:19 N/A General Appearance: Alert, Oriented X3, Cooperative, No acute distress HEENT: Atraumatic, PERRLA, EOMI, Mucous membr. moist/pink Respiratory: Normal air movement, Other (Diminished breath sounds) Cardiovascular: Regular rate, Normal S1, Normal S2, No murmurs Abdominal: Normal bowel sounds, Soft, No tenderness, No hepatospenomegaly, No masses Extremities: No clubbing, No cyanosis, No edema, Normal pulses, No tendern ess/swelling Skin: No rashes, No breakdown, No significant lesion Neuro: Normal speech, Normal tone, Sensation intact, Cranial nerves 3-12 NL, Reflexes 2+, Other (Generalized weakness) Psych/Mental Status: Mental status NL, Mood NL Labs/Xrays Labs Test 03/29/24 13:02 03/29/24 11:20 Range/Units Influenza Type A Antigen Negative Negative Influenza Type B Antigen Negative Negative SARS-CoV-2 Antigen (Rapid) Negative NEGATIVE White Blood Count 5.9 4.4-10.8 10^3/uL Red Blood Count 4.07 L 4.5-5.90 10^6/uL Hemoglobin 13.5 13.5-17.5 g/dL Hematocrit 39.9 L 41.0-53.0 % Mean Corpuscular Volume 98.2 80.0-100.0 fL Mean Corpuscular Hemoglobin 33.3 H 28.0-32.0 pg Mean Corpuscular Hemoglobin Concent 33.9 32.0-36.0 g/dL Red Cell Distribution Width 15.4 H 11.8-14.3 % Platelet Count 106 L 140-450 10^3/uL Mean Platelet Volume 9.1 6.9-10.8 fL Neutrophils (%) (Auto) 79.8 37.0-80.0 % Lymphocytes (%) (Auto) 7.7 L 10.0-50.0 % Monocytes (%) (Auto) 8.7 0.0-12.0 % Eosinophils (%) (Auto) 3.2 0.0-7.0 % Basophils (%) (Auto) 0.6 0.0-2.0 % Neutrophils # (Auto) 4.7 1.6-8.6 10 ^3/uL Lymphocytes # (Auto) 0.5 0.4-5.4 10 ^3/uL Monocytes # (Auto) 0.5 0-1.3 10 ^3/uL Eosinophils # (Auto) 0.2 0-0.8 10 ^3/uL Basophils # (Auto) 0 0-0.2 10 ^3/uL Nucleated Red Blood Cells 0.1 % Sodium Level 141 136-145 mmol/L Potassium Level 4.7 3.5-5.1 mmol/L Chloride Level 112 H 98-107 mmol/L Carbon Dioxide Level 23 20-31 mmol/L Anion Gap 6 5-15 Blood Urea Nitrogen 41 H 9-23 mg/dL Creatinine 2.38 H 0.700-1.30 mg/dL Glomerular Filtration Rate Calc 26 >90 mL/min BUN/Creatinine Ratio 17.2 10.0-20.0 Serum Glucose 103 74-106 mg/dL Calcium Level 9.4 8.7-10.4 mg/dL Troponin I High Sensitivity 18 </=54 ng/L B-Type Natriuretic Peptide 140.58 0-100 pg/mL PATIENT: ELIZABETH DOUGLAS ACCT: [id number] UNIT: [id number] : 1935 LOC: ER ROOM / BED: / AGE / SEX: 88 / M ADM STATUS: REG ER SERVICE 1111 ORDERING PHYSICIAN: STEVE QUEEN MD PROCEDURE(s): CXRP - CHEST PORTABLE REASON: sob ORDER NUMBER(s): [id number], ACCESSION NUMBER(s): [id number] CHEST PORTABLE, HISTORY: sob COMPARISON: CHEST PORTABLE on DOS: 07/07/19, CHEST PORTABLE on DOS: 07/03/19 CHEST PORTABLE on DOS: 07/07/19, CHEST PORTABLE on DOS: 07/03/19 TECHNICAL DATA: 1 view of the chest was obtained. FINDINGS: Lines and tubes: A cardiac pacer/defibrillator is seen. Cardiomediastinal silhouette: Enlarged Pulmonary vasculature: Prominent Lung expansion: low Lung airspace: Patchy bibasilar opacities. Lung interstitium: increased Pleura: small effusion. Pneumothorax: no Bones: Unremarkable Other: no IMPRESSION: Cardiomegaly with pulmonary vascular congestion. Patchy bibasilar opacities with small bilateral pleural effusions. Assessment/Plan Assessment/Plan Acute on chronic systolic heart failure Acute renal injury Generalized weakness Plan 1. Admit to telemetry unit 2. Breathing treatment 3. Pain control management 4. Management of fluids and electrolytes 5. Consultation for Nephrology/hospitalist 6. Diagnostic tests chest x-ray 7. DVT prophylaxis-on sprain 8. Repeat labs CBC, CMP in a.m. 9. Continue with current medical management 10. Treatment plan discussed with patient and RN. Patient verbalized understanding. Plan discussed with: Patient, Other (RN) My Orders Orders - VIVIAN TAO DNP Procedure Category Date Status Time Aspirin Tablet PHA 03/30/24 In Process 10:00 Carvedilol Tablet PHA 03/29/24 In Process (Coreg Tablet) 22:00 Atorvastatin (Lipitor) PHA 03/29/24 In Process 22:00 Hydralazine Injection PHA 03/29/24 In Process (Apresoline Inject 14:00 Furosemide Injection PHA 03/30/24 In Process (Lasix Injection) 10:00 *[facility] CONS 03/29/24 Transmitted -[place] 13:54 Allergies ED 03/29/24 In Process 13:54 Code Status CODE 03/29/24 Transmitted 13:54 Sodium Chloride Lock PHA 03/29/24 In Process (Saline Lock Ns) 14:00 Oxygen Per Hour RT 03/29/24 Transmitted 13:54 Hydrocodone-Acet PHA 03/29/24 In Process 5/325mg Tab ([place] 14:00 Ondansetron Hcl PHA 03/29/24 In Process (Zofran) 14:00 Docusate Sodium PHA 03/29/24 In Process Capsule ([place] 14:00 Fall Risk Precautions ED 03/29/[address] 13:54 Complete Blood Count LAB 03/30/24 Verified 04:00 Comprehensive LAB 03/30/24 Verified Metabolic Panel 04:00 Cardiac DIET 03/29/24 Transmitted Diet-2gna,Lofat,Lochol Dinner Echo 2d Mode Cardiac US 03/29/24 Logged DOP 13:54 Condition: Serious ED 03/29/24 In Process 13:54 Acetaminophen Tablet PHA 03/29/24 In Process (Tylenol Tablet) 14:00 Sequential ED 03/29/24 In Process Compression Device Levetiracetam 500 PHA 03/29/24 In Process Mg/100ml (Levetiraceta 22:00 Problem List: (1) Acute on chronic systolic heart failure (2) Acute renal injury (3) Generalized weakness Date of Service: Mar 29, 2024 Billing Provider: VIVIAN TAO DNP Common Visit Codes: [id number] INP/OBS CARE (HIGH) VIVIAN TAO DNP Mar 29, 2024 15:25
[2024-03-29] MEDS ORDERED: NITROGLYCERIN 0.4 MG SL TAB SL PRN (15:30)
[2024-03-29] MEDS ORDERED: MORPHINE SULFATE INJ 2 MG/ml SYRG IV PRN (15:30)
[2024-03-29 15:40] VITALS: BP 126/75; PULSE 73; RESP 16; TEMP 97.3; O2SAT 100
[2024-03-29] MEDS: SODIUM CHLOR 0.9% PF (SALINE LOCK) 10ML VIAL/SYR IV SCH (15:40)
[2024-03-29] MEDS: FUROSEMIDE 40 MG/4 ML VIAL IV ONE (15:40)
[2024-03-29] MEDS ORDERED: ALBUTEROL SULF 2.5 MG/0.5ML(0.5%) NEB SOLN NEB PRN (17:30)
[2024-03-29] MEDS ORDERED: IPRATROPIUM BROM 0.5 MG/2.5ML INH SOL NEB PRN (17:30)
[2024-03-29] MEDS ORDERED: AMLO1TAB22 PO (17:46)
[2024-03-29 18:00] VITALS: O2SAT 99
[2024-03-29] MEDS: DOXYCYCLINE 100MG/250ML 250 ML IV SCH (18:01)
[2024-03-29 18:25] VITALS: BP 141/84; PULSE 79; RESP 18; TEMP 97.5; O2SAT 99
[2024-03-29 19:15] VITALS: BP 140/81; PULSE 82; RESP 17; TEMP 98.3; O2SAT 96
[2024-03-29 20:45] VITALS: BP 125/50; PULSE 69; RESP 18; TEMP 98.1; O2SAT 96
[2024-03-29 21:00] VITALS: BP 135/72; PULSE 76; RESP 17; TEMP 97.4; O2SAT 98
[2024-03-29] MEDS: CARVEDILOL 3.125 MG TAB PO SCH (21:33)
[2024-03-29] MEDS: ATORVASTATIN 20 MG TAB PO SCH (21:33)
[2024-03-29] MEDS: levETIRAcetam 500 mg/100ml 100 ML IV SCH (21:33)
[2024-03-30] VITALS (11 sets, daily range): BP systolic 105–132; BP diastolic 65–78; PULSE 75–76; RESP 17–19; TEMP 97.5–97.7; O2SAT 97–100
[2024-03-30 06:10] LABS: Basophils # (auto) 0.1 10 ^3/uL (0-0.2); Basophils % (auto) 1.5 % (0.0-2.0); Eosinophils # (auto) 0.3 10 ^3/uL (0-0.8); Eosinophils % (auto) 6.1 % (0.0-7.0); Hematocrit 37.9 % (41.0-53.0); Hemoglobin 13.1 g/dL (13.5-17.5); Lymphocytes # (auto) 0.7 10 ^3/uL (0.4-5.4); Lymphocytes % (auto) 13.4 % (10.0-50.0); Mean Corpuscular Hemoglobin 33.6 pg (28.0-32.0); Mean Corpuscular Hgb Conc. 34.5 g/dL (32.0-36.0); Mean Corpuscular Volume 97.4 fL (80.0-100.0); Monocytes # (auto) 0.5 10 ^3/uL (0-1.3); Neutrophils # (auto) 3.6 10 ^3/uL (1.6-8.6); Nucleated Red Blood Cells % 0.1 %; Platelet Count (auto) 105 10^3/uL (140-450); Red Cell Distribution Width 15.2 % (11.8-14.3); White Blood Cell 5.2 10^3/uL (4.4-10.8)
[2024-03-30 06:25] LABS: Alanine Aminotransferase 14 U/L (7-40); Albumin 3.7 g/dL (3.2-4.8); Alkaline Phosphatase 87 U/L (46-116); Anion Gap 9 (5-15); Aspartate Aminotransferase 17 U/L (13-40); BUN/Creatinine Ratio 17.3 (10.0-20.0); Blood Urea Nitrogen 44 mg/dL (9-23); Calcium 9.4 mg/dL (8.7-10.4); Carbon Dioxide 25 mmol/L (20-31); Chloride 110 mmol/L (98-107); Glucose 77 mg/dL (74-106); Potassium 4.2 mmol/L (3.5-5.1); Sodium 144 mmol/L (136-145)
[2024-03-30 06:26] LABS: Bilirubin, Total 0.7 mg/dL (0.2-1.0)
[2024-03-30] MEDS: FUROSEMIDE 40 MG/4 ML VIAL IV SCH ×2 (09:34→17:42)
[2024-03-30] MEDS: ASPirin 81 mg TAB PO SCH (09:35)
--- NOTE | 2024-03-30 10:18 | DVH ---
INDICATION: CKD TECHNIQUE: Multiple real-time sonographic images of the kidneys and bladder were obtained. COMPARISON: KIDNEY on DOS: 07/08/19 FINDINGS: The right kidney measures 10.0 cm in length, which is normal in size. There is increased echogenicity of the right kidney. No hydronephrosis. Are multiple right renal cysts measuring up to 1.1 cm. The left kidney measures 8.9 cm in length, which is normal in size. There is increased echogenicity o f the left kidney. No hydronephrosis. There are multiple left renal cysts measuring up to 1.3 cm. No large intraluminal masses are seen in the bladder. Prior to voiding the bladder volume measures volume 289 cc. The prostate measures on the upper limits of normal measuring 3.5 x 3.0 x 4.7 cm. IMPRESSION: Echogenic bilateral kidneys suggestive of chronic medical renal disease. Bilateral renal cysts. The p rostate is measures at the upper limits of normal in size, measuring 4.7 cm. No hydronephrosis.
--- NOTE | 2024-03-30 13:01 | DVHPN2 ---
Subjective Seen and examined at bedside, patient known to me from outpatient setting. Patient is on 3L nasal cannula oxygen. Changes from previous H/P or p: No Changes Eyes: No Pain, No Vision change, No Conjunctivae inflammation, No Eyelid inflammation, No Other, No Redness ENT: No Ear pain, No Ear discharge, No Nose pain, No Nose discharge, No Nose congestion, No Mouth pain, No Mouth swelling, No Throat pain, No Throat swelling, No Other Cardiovascular: No Chest Pain, No Palpitations, No Orthopnea, No Paroxysmal Noc. Dyspnea, No Edema, No Lt Headedness, No Other Respiratory: No Cough, No Dry; Shortness of breath, SOB with excertion; No Wheezing, No Hemoptysis, No Pleuritic Pain, No Sputum; Other (SOB at rest) Gastrointestinal: No Nausea, No Vomiting, No Abdominal Pain, No Diarrhea, No Constipation, No Melena, No Hematochezia, No Other Genitourinary: No Dysuria, No Frequency, No Incontinence, No Hematuria, No Retention, No Other Musculoskeletal: No other, No neck pain, No shoulder pain, No arm pain, No back pain, No hand pain, No leg pain, No foot pain Skin: No Rash, No Lesions, No Jaundice, No Bruising, No Other Objective Vitals Vital Signs Date Time Temp Pulse Resp B/P (MAP) Pulse Ox O2 Delivery O2 Flow Rate FiO2 03/30/24 09:35 75 120/73 03/30/24 06:43 99 Nasal Cannula* 2 28 03/30/24 05:00 97.6 19 97.6 Intake/Output Intake and Output 03/30/24 07:00 Intake Total 880 ml Output Total 1900 ml Balance -1020 ml Intake Oral 280 ml IV Total 600 ml Output Urine Total 1900 ml Exam Gen: in bed hard of hearing Cvs: Aortic Click Resp: Creps b/l Abd: Soft, NT Therapist: AAO x 3 Medications Current Medications Medications Dose Ordered Sig/Nelsy Route Start Time Stop Time Status Last Admin Dose Admin Aspirin 81 mg DAILY PO 03/30/24 10:00 03/30/24 09:35 81 MG Carvedilol 3.125 mg Q12HR PO 03/29/24 22:00 03/30/24 09:35 3.125 MG Atorvastatin Calcium 10 mg HS PO 03/29/24 22:00 03/29/24 21:33 10 MG Hydralazine HCl 10 mg Q6HP PRN IV 03/29/24 14:00 Furosemide 40 mg DAILY IV 03/30/24 10:00 03/30/24 09:34 40 MG Sodium Chloride 10 ml Q8HR IV 03/29/24 14:00 03/30/24 05:05 10 ML Acetaminophen/ Hydrocodone Bitart 1 tab Q4HP PRN PO 03/29/24 14:00 Ondansetron HCl 4 mg Q4HP PRN IV 03/29/24 14:00 Docusate Sodium 100 mg BIDPRN PRN PO 03/29/24 14:00 Acetaminophen 650 mg Q6HP PRN PO 03/29/24 14:00 Levetiracetam 100 ml @ 400 mls/hr BID IV 03/29/24 22:00 03/30/24 09:59 400 MLS/HR Nitroglycerin 0.4 mg Q5MINP PRN SL 03/29/24 15:30 Morphine Sulfate 2 mg Q30M PRN IV 03/29/24 15:30 Doxycycline Hyclate 250 ml @ 125 mls/hr Q12H IV 03/29/24 17:30 03/30/24 05:04 125 MLS/HR Albuterol 2.5 mg Q6HPRN PRN NEB 03/29/24 17:30 Ipratropium [place] 0.5 mg Q6HPRN PRN NEB 03/29/24 17:30 Laboratory Results Laboratory Tests 03/30/24 05:12 Chemistry Test 03/30/24 05:12 Albumin 3.7 g/dL (3.2-4.8) Calcium Level 9.4 mg/dL (8.7-10.4) Total Protein 6.0 g/dL (5.7-8.2) LFT Test 03/30/24 05:12 Alanine Aminotransferase (ALT) 14 U/L (7-40) Alkaline Phosphatase 87 U/L (46-116) Aspartate Amino Transferase (AST) 17 U/L (13-40) Total Bilirubin 0.7 mg/dL (0.2-1.0) Assessment/Plan Assessment/Plan # Acute Hypoxic Resp Failure - Titrate oxygen down - Patient does NOT use home oxygen # Acute Systolic CHF - Lasix - Monitor I&O # 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 - Nephro Cx - Urine Studies # Goals of care discussion >18 mins FULL CODE Plan discussed with: Patient My Orders Orders - REBECCA DODD MD Procedure Category Date Status Time Doxycycline PHA 03/29/24 In Process 100mg/250ml 17:30 Albuterol Medneb PHA 03/29/24 In Process (Ventolin Medneb) 17:30 Ipratropium Medneb PHA 03/29/24 In Process (Atrovent Medneb) 17:30 Basic Metabolic Panel LAB 03/31/24 Verified 04:00 Magnesium LAB 03/31/24 Verified 04:00 Date of Service: Mar 30, 2024 Billing Provider: REBECCA DODD MD Common Visit Codes: [id number] INP/OBS CARE(HIGH) Secondary Visit Codes: [id number] CARE PLAN 30 MINUTES REBECCA DODD MD Mar 30, 2024 13:01
--- NOTE | 2024-03-30 13:13 | DVHSR ---
APPROVED REPORT EXAM: Two-dimensional and M-mode echocardiogram with Doppler and color Doppler. Blood Pressure: 112/65 mmHg INDICATION Heart Failure Surgery/Intervention Valve Replacement: Type: AV RISK FACTORS Height: 5'6", Weight: 185 DIMENSIONS LVDd4.7 (3.8-5.7cm)LA (2D)4.8 (1.9-4.0cm)Aortic Root (2.0-3.7cm) LVDs3.6 (2.5-4.0cm)LA (MM) (1.9-4.0cm)Aortic Cusp Exc (1.5-2.0cm) EF (%) 48.0 (55-70%)Rt. Atrium4.6 (1.9-4.0cm)Asc. Aorta4.4 cm IVSd1.2 (0.7-1.1cm)RV (D)3.8 (1.8-2.4cm) PWd1.1 (0.7-1.1cm) Mitral Valve MitralMitral Stenosis E wavem/sMV Mean GR.12mmHg A wavem/sMV Peak GR.20mmHg E/A ratio0.02D MVAcm2 DECEL [employer] 1/2 [id number] IVRTmsDop MVA0.85cm2 Aortic Valve Aortic ValveAortic Stenosis V10.80m/Nina Mean GR.5mmHg V21.62m/Nina Peak GR.10mmHg LVOT Diameter2.4 (1.8-2.4cm)Doppler AVA2.23cm2 AI P 1/2 [id number] Other Information Quality : Technically LimitedRhythm : Technically limited study due to body habitus. Conclusion Mildly reduced left ventricular systolic function in global fashion estimated ejection fraction of 45 -50%. There is global wall hypokinesia. Normal right ventricular size and dimension. Normal left ventricular systolic function. Borderline dilated right and left atria. The aortic valve is thickened and sclerotic. The mitral valve is heavily calcified very thickened there is severe mitral valve stenosis with a edmar n gradient of12 and peak gradient of20 mm of mercury. The valve area estimated at 0.86 with a pressu re half-time 258 There is mild tricuspid valve regurgitation. The pulmonary valve is grossly normal. No pericardial effusion. Possible large size left pleural effusion.
[2024-03-30 13:25] LABS: Urine Bacteria None Seen /hpf (None Seen)
[2024-03-30 13:42] LABS: Protein, Urine 17.4 mg/dL (1-14); Urine Blood TRACE /uL (Negative); Urine Clarity Clear (Clear); Urine Color Colorless (Yellow); Urine Protein, UAD Negative (Negative); Urine Specific Gravity 1.006 (1.001-1.035); Urine Urobilinogen Normal (Negative); Urine WBC <1 /hpf (0 - 3)
[2024-03-30 13:44] LABS: Creatinine, Urine 13.77 mg/dL (30.0-125.0)
--- NOTE | 2024-03-30 14:30 | DVHCONRES ---
Date Seen: Mar 30, 2024 Resident Creating Document: TOOTIE SCHNEIDER RESIDENT Referring Physician Negin TADEO Reason for Consultation acute on chronic renal failure History of Present Illness Patient is 88-year-old male with past medical history of hypertension, hyperlipidemia, CHF, gout, seizure, anxiety who brought to the hospital with worsening shortness of breath, at the evaluation patient was on 2 L oxygen via nasal cannula. Patient denied any other symptoms including fever, cough, chills, sputum production, chest pain, any other symptoms. Nephrology consultation was done for acute on chronic renal failure. Patient is poor historian not able to provide which medication he takes, which kind of medical condition he has. All other information obtained from medical records. Past surgical history: Pacemaker, tonsillectomy, aortic valve surgery. CMP: Creatinine 2.38, 2.55. GFR 26, 24. Renal ultrasound on 03/30/24 : Echogenic bilateral kidneys suggestive of chronic medical renal disease. Bilateral renal cysts. The prostate is measures at the upper limits of normal in size, measuring 4.7 cm. No hydronephrosis. Urine creatinine 13.77 Urine sodium 109 Urine total protein 17.4 Echocardiogram: Left ventricular ejection fraction 45, 50%, global wall hypokinesia. Family History: Asthma G8 MOTHER Diabetes mellitus G8 MOTHER Hypertension Family History Not able to obtain Social History Not able to obtain Allergies: Coded Allergies: NO KNOWN ALLERGIES (Unverified , 06/09/17) Home Meds Reported Medications Gabapentin (Gabapentin) 100 Mg Cap, 1 CAP PO QPM for 90 Days, #90 03/30/24 Amlodipine Besylate (Amlodipine Besylate) 5 Mg Tab, 2.5 MG PO DAILY for 90 Days, #90 03/30/24 Allopurinol (ZYLOPRIM TABLET) 100 Mg Tb, 1 TAB PO DAILY, #30 TAB 5 Refills 09/11/22 Tamsulosin Hcl (Flomax) 0.4 Mg Cap, 1 CAP PO DAILY, #30 CAP 11 Refills 06/09/17 Warfarin Sodium (Coumadin) 7.5 Mg Tab, 1 TAB PO DAILY, #90 TAB 3 Refills 06/09/17 Rosuvastatin Calcium (Crestor) 20 Mg Tab, 1 TAB PO DAILY, #30 TAB 5 Refills 06/09/17 Fish Oil (Fish Oil) 1,200 Mg Cap, 1200 MG PO DAILY, CAP 06/09/17 Digoxin (Digoxin) 125 Mcg Tab, 125 MCG PO MWF, TAB 06/09/17 Cholecalciferol (VITAMIN D) 2,000 Unit Tab, 2000 UNIT PO DAILY, TAB 06/09/17 Aspirin (Aspirin Adult Low Dose) 81 Mg Tab, 81 MG PO DAILY, TAB 06/09/17 Levetiracetam (Keppra) 500 Mg Tab, 1 TAB PO BID, #180 TAB 3 Refills 05/21/17 Current Medications Current Medications Medications (Trade) Dose Ordered Sig/Nelsy Route PRN Reason Start Time Stop Time Status Last Admin Aspirin 81 mg DAILY PO 03/30/24 10:00 03/30/24 09:35 Carvedilol (Coreg Tablet) 3.125 mg Q12HR PO 03/29/24 22:00 03/30/24 09:35 Atorvastatin Calcium (Lipitor) 10 mg HS PO 03/29/24 22:00 03/29/24 21:33 Furosemide (Lasix Injection) 40 mg DAILY IV 03/30/24 10:00 03/30/24 09:34 Levetiracetam 100 ml @ 400 mls/hr BID IV 03/29/24 22:00 03/30/24 09:59 Nitroglycerin (Ntrostat Sublingual) 0.4 mg Q5MINP PRN SL FOR CHEST PAIN 03/29/24 15:30 Morphine Sulfate 2 mg Q30M PRN IV FOR CHEST PAIN 03/29/24 15:30 Doxycycline Hyclate 250 ml @ 125 mls/hr Q12H IV 03/29/24 17:30 03/30/24 05:04 Albuterol (Ventolin Medneb) 2.5 mg Q6HPRN PRN NEB SHORTNESS OF BREATH 03/29/24 17:30 Ipratropium [place] (Atrovent Medneb) 0.5 mg Q6HPRN PRN NEB SHORTNESS OF BREATH 03/29/24 17:30 Review of Systems Eyes: No Pain, No Vision change, No Conjunctivae inflammation, No Eyelid inflammation, No Other, No Redness ENT: No Ear pain, No Ear discharge, No Nose pain, No Nose discharge, No Nose congestion, No Mouth pain, No Mouth swelling, No Throat pain, No Throat swelling, No Other Cardiovascular: No Chest Pain, No Palpitations, No Orthopnea, No Paroxysmal Noc. Dyspnea, No Edema, No Lt Headedness, No Other Respiratory: No Cough, No Dry, Shortness of breath, No SOB with excertion, No Wheezing, No Hemoptysis, No Pleuritic Pain, No Sputum, No Other Gastrointestinal: No Nausea, No Vomiting, No Abdominal Pain, No Diarrhea, No Constipation, No Melena, No Hematochezia, No Other Genitourinary: No Dysuria, No Frequency, No Incontinence, No Hematuria, No Retention, No Other Musculoskeletal: No other, No neck pain, No shoulder pain, No arm pain, No back pain, No hand pain, No leg pain, No foot pain Skin: No Rash, No Lesions, No Jaundice, No Bruising, No Other Vital Signs Vital Signs Date Time Temp Pulse Resp B/P (MAP) Pulse Ox O2 Delivery O2 Flow Rate FiO2 03/30/24 10:35 76 105/72 03/30/24 10:00 99 Nasal Cannula 2.0 03/30/24 10:00 28 03/30/24 05:00 97.6 19 97.6 Physical Exam General Appearance: Cooperative. Well developed. Well nourished. NAD Head Exam: Normal inspection Neck Exam: Normal inspection. Non-tender. Normal alignment Pulmonary/Respiratory: Chest non-tender. Bilateral lower lung base crackles. Cardiovascular/Chest: Regular rate and rhythm. No murmurs. No JVD. Peripheral Pulses: 2+ Radial (R). 2+ Radial (L). 2+ Pedal (R). 2+ Pedal (L) Abdominal Exam: Normal bowel sounds. Soft. Nontender. No hepatospenomegaly. No masses Ankle Exam: Negative ankle edema Lower extremities: Negative lower extremity edema Neuro/Mental Status: A&O x4. Coherent Thoughts/Psych: Normal thought pattern. Appropriate mood and affect. Good judgement and insight Appearance: In no acute distress Skin Exam: Normal inspection. Normal color. Warm. Dry Labs/Diagnostic Data Labs Test 03/30/24 13:00 03/30/24 05:12 03/29/24 13:02 03/29/24 11:20 Range/Units Urine Color Colorless Yellow Urine Clarity Clear Clear Urine pH 5.0 5.0-9.0 Urine Specific [place] 1.006 1.001-1.035 Urine Protein Negative Negative Urine Ketones Negative Negative Urine Blood Trace H Negative /uL Urine Nitrite Negative Negative Urine Bilirubin Negative Negative Urine Urobilinogen Normal Negative mg/dL Urine Leukocyte Esterase Negative Negative /uL Urine RBC <1 0 - 3 /hpf Urine WBC <1 0 - 3 /hpf Urine Squamous Epithelial Cells None seen <5 /hpf Urine Bacteria None seen None Seen /hpf Urine Creatinine 13.77 L 30.0-125.0 mg/dL Urine Sodium 109 40-220 mmol/L Urine Glucose Normal Normal mg/dL Urine Total Protein 17.4 H 1-14 mg/dL White Blood Count 5.2 4.4-10.8 10^3/uL Red Blood Count 3.90 L 4.5-5.90 10^6/uL Hemoglobin 13.1 L 13.5-17.5 g/dL Hematocrit 37.9 L 41.0-53.0 % Mean Corpuscular Volume 97.4 80.0-100.0 fL Mean Corpuscular Hemoglobin 33.6 H 28.0-32.0 pg Mean Corpuscular Hemoglobin Concent 34.5 32.0-36.0 g/dL Red Cell Distribution Width 15.2 H 11.8-14.3 % Platelet Count 105 L 140-450 10^3/uL Mean Platelet Volume 9.4 6.9-10.8 fL Neutrophils (%) (Auto) 69.0 37.0-80.0 % Lymphocytes (%) (Auto) 13.4 10.0-50.0 % Monocytes (%) (Auto) 10.0 0.0-12.0 % Eosinophils (%) (Auto) 6.1 0.0-7.0 % Basophils (%) (Auto) 1.5 0.0-2.0 % Neutrophils # (Auto) 3.6 1.6-8.6 10 ^3/uL Lymphocytes # (Auto) 0.7 0.4-5.4 10 ^3/uL Monocytes # (Auto) 0.5 0-1.3 10 ^3/uL Eosinophils # (Auto) 0.3 0-0.8 10 ^3/uL Basophils # (Auto) 0.1 0-0.2 10 ^3/uL Nucleated Red Blood Cells 0.1 % Sodium Level 144 136-145 mmol/L Potassium Level 4.2 3.5-5.1 mmol/L Chloride Level 110 H 98-107 mmol/L Carbon Dioxide Level 25 20-31 mmol/L Anion Gap 9 5-15 Blood Urea Nitrogen 44 H 9-23 mg/dL Creatinine 2.55 H 0.700-1.30 mg/dL Glomerular Filtration Rate Calc 24 >90 mL/min BUN/Creatinine Ratio 17.3 10.0-20.0 Serum Glucose 77 74-106 mg/dL Calcium Level 9.4 8.7-10.4 mg/dL Total Bilirubin 0.7 0.2-1.0 mg/dL Aspartate Amino Transferase (AST) 17 13-40 U/L Alanine Aminotransferase (ALT) 14 7-40 U/L Alkaline Phosphatase 87 46-116 U/L Total Protein 6.0 5.7-8.2 g/dL Albumin 3.7 3.2-4.8 g/dL Influenza Type A Antigen Negative Negative Influenza Type B Antigen Negative Negative SARS-CoV-2 Antigen (Rapid) Negative NEGATIVE Troponin I High Sensitivity 18 </=54 ng/L B-Type Natriuretic Peptide 140.58 0-100 pg/mL Assessment Acute on chronic HFrEF Chronic kidney disease stage IV Acute hypoxic respiratory failure History of gout History of seizure Presence of pacemaker Plan/recommendation Dr. Delgado -IV Lasix 40 mg b.i.d. for volume overload -2 g sodium diet -fluid restriction: Maintained fluid consumption less than 1.2 L. -urinalysis: Negative for UTI. -renal ultrasound:Echogenic bilateral kidneys suggestive of chronic medical renal disease. Bilateral renal cysts. The prostate is measures at the upper limits of normal in size, measuring 4.7 cm. No hydronephrosis. -chest x-ray: Pulmonary vascular congestion -continue to monitor urine output Total time spent greater than 76 minute, most of the time spent [id number] with patient. Thank you for consultation Addendum Patient seen and examined, plan discussed with resident. Agree with above, we will follow closely Plan discussed with: Patient, Other (RN) TOOTIE SCHNEIDER Mar 30, 2024 14:30 KIERA DELGADO MD Mar 30, 2024 18:36
[2024-03-30] MEDS ORDERED: TAMS0.4C39 PO (17:46)
[2024-03-31] VITALS (12 sets, daily range): BP systolic 102–133; BP diastolic 54–78; PULSE 70–90; RESP 16–18; TEMP 97.5–98.9; O2SAT 94–100
[2024-03-31 07:11] LABS: Anion Gap 7 (5-15); Carbon Dioxide 30 mmol/L (20-31); Chloride 105 mmol/L (98-107); Potassium 4.3 mmol/L (3.5-5.1); Sodium 142 mmol/L (136-145)
[2024-03-31 07:12] LABS: Calcium 9.9 mg/dL (8.7-10.4)
[2024-03-31 07:17] LABS: BUN/Creatinine Ratio 17.6 (10.0-20.0); Blood Urea Nitrogen 50 mg/dL (9-23); Glucose 79 mg/dL (74-106)
[2024-03-31 07:18] LABS: Magnesium 2.3 mg/dL (1.6-2.6)
--- NOTE | 2024-03-31 11:00 | DVHPN2 ---
Progress Note Date Seen: Mar 31, 2024 Resident Creating Document: TOOTIE SCHNEIDER RESIDENT Medical Necessity Reason Pt with a Central, PICC or Fol: No Subjective Review of Systems History of Present Illness Patient is 88-year-old male with past medical history of hypertension, hyperlipidemia, CHF, gout, seizure, anxiety who brought to the hospital with worsening shortness of breath, at the evaluation patient was on 2 L oxygen via nasal cannula. Patient denied any other symptoms including fever, cough, chills, sputum production, chest pain, any other symptoms. Nephrology consultation was done for acute on chronic renal failure. Patient is poor historian not able to provide which medication he takes, which kind of medical condition he has. All other information obtained from medical records. Past surgical history: Pacemaker, tonsillectomy, aortic valve surgery. CMP: Creatinine 2.38, 2.55. GFR 26, 24. Renal ultrasound on 03/30/24 : Echogenic bilateral kidneys suggestive of chronic medical renal disease. Bilateral renal cysts. The prostate is measures at the upper limits of normal in size, measuring 4.7 cm. No hydronephrosis. Urine creatinine 13.77 Urine sodium 109 Urine total protein 17.4 Echocardiogram: Left ventricular ejection fraction 45, 50%, global wall hypokinesia. Patient is seen and examined at bedside. Patient continued to feel better. No other complaints. Objective vital signs Vital Sign Date Time Temp Pulse Resp B/P (MAP) Pulse Ox O2 Delivery O2 Flow Rate FiO2 03/31/24 09:28 75 130/79 03/31/24 09:00 97.7 18 98 97.7 03/30/24 20:00 Nasal Cannula* 2 28 Total Intake and Output 03/30/24 03/30/24 03/31/24 15:00 23:00 07:00 Intake Total 640 ml 1230 ml 500 ml Output Total 1700 ml 1875 ml Balance 640 ml -470 ml -1375 ml medications Current Medications Medications Dose Ordered Sig/Nelsy Route Start Time Stop Time Status Last Admin Dose Admin Aspirin 81 mg DAILY PO 03/30/24 10:00 03/31/24 09:28 81 MG Carvedilol 3.125 mg Q12HR PO 03/29/24 22:00 03/31/24 09:28 3.125 MG Atorvastatin Calcium 10 mg HS PO 03/29/24 22:00 03/30/24 21:44 10 MG Hydralazine HCl 10 mg Q6HP PRN IV 03/29/24 14:00 Sodium Chloride 10 ml Q8HR IV 03/29/24 14:00 03/31/24 06:10 10 ML Acetaminophen/ Hydrocodone Bitart 1 tab Q4HP PRN PO 03/29/24 14:00 Ondansetron HCl 4 mg Q4HP PRN IV 03/29/24 14:00 Docusate Sodium 100 mg BIDPRN PRN PO 03/29/24 14:00 Acetaminophen 650 mg Q6HP PRN PO 03/29/24 14:00 Levetiracetam 100 ml @ 400 mls/hr BID IV 03/29/24 22:00 03/31/24 09:28 400 MLS/HR Nitroglycerin 0.4 mg Q5MINP PRN SL 03/29/24 15:30 Morphine Sulfate 2 mg Q30M PRN IV 03/29/24 15:30 Doxycycline Hyclate 250 ml @ 125 mls/hr Q12H IV 03/29/24 17:30 03/31/24 06:18 125 MLS/HR Albuterol 2.5 mg Q6HPRN PRN NEB 03/29/24 17:30 Ipratropium [place] 0.5 mg Q6HPRN PRN NEB 03/29/24 17:30 Furosemide 40 mg BIDD IV 03/30/24 18:00 03/31/24 06:19 40 MG Examination General Appearance: Cooperative. Well developed. Well nourished. NAD Head Exam: Normal inspection Neck Exam: Normal inspection. Non-tender. Normal alignment Pulmonary/Respiratory: Chest non-tender. Bilateral lower lung base crackles. Cardiovascular/Chest: Regular rate and rhythm. No murmurs. No JVD. Peripheral Pulses: 2+ Radial (R). 2+ Radial (L). 2+ Pedal (R). 2+ Pedal (L) Abdominal Exam: Normal bowel sounds. Soft. Nontender. No hepatospenomegaly. No masses Ankle Exam: Negative ankle edema Lower extremities: Negative lower extremity edema Neuro/Mental Status: A&O x4. Coherent Thoughts/Psych: Normal thought pattern. Appropriate mood and affect. Good judgement and insight Appearance: In no acute distress Skin Exam: Normal inspection. Normal color. Warm. Dry laboratory and microbiology Laboratory Tests 03/31/24 06:00 03/30/24 05:12 Test 03/31/24 06:00 Range/Units Serum Glucose 79 74-106 mg/dL Problem List/Assessment/Plan Problem List/Assessment/Plan Acute on chronic HFrEF Acute kidney injury on Chronic kidney disease stage IV hemodynamic etiology Acute hypoxic respiratory failure History of gout History of seizure Presence of pacemaker Plan/recommendation Dr. Wright -Continue IV Lasix 40 mg b.i.d. for volume overload -Continue 2 g sodium diet -fluid restriction: Maintained fluid consumption less than 1.2 L. -urinalysis: Negative for UTI. -renal ultrasound:Echogenic bilateral kidneys suggestive of chronic medical renal disease. Bilateral renal cysts. The prostate is measures at the upper limits of normal in size, measuring 4.7 cm. No hydronephrosis. -Echo(03/30/24):Mildly reduced left ventricular systolic function in global fashion estimated ejection fraction of 45-50%. There is global wall hypokinesia. -chest x-ray: Pulmonary vascular congestion -continue to monitor urine output: 3575 ml urine output Addendum Patient seen and examined, plan discussed with resident. Agree with above, we will follow closely Plan discussed with: Patient, Other (RN) My Orders My Orders Orders - TOOTIE SCHNEIDER Procedure Category Date Status Time Furosemide Injection PHA 03/30/24 In Process (Lasix Injection) 18:00 TOOTIE SCHNEIDER Mar 31, 2024 11:00 KIERA WRIGHT MD Mar 31, 2024 18:53
--- NOTE | 2024-03-31 17:43 | MEDREC ---
[facility] Intervention Section I [facility] Intervention: Review courses of therapy (PLEASE CONSIDER D/C ANTIBIOTIC(S) IN ABSENCE OF BACTERIAL INFECTION ) JOAQUÍN DELEON PHARMACIST Mar 31, 2024 17:43
--- NOTE | 2024-03-31 17:59 | DVHPN2 ---
Subjective Seen and examined at bedside, patient known to me from outpatient setting. Patient is still on 3L nasal cannula oxygen. DC Lasix due to elevating renal function. Changes from previous H/P or p: No Changes Eyes: No Pain, No Vision change, No Conjunctivae inflammation, No Eyelid inflammation, No Other, No Redness ENT: No Ear pain, No Ear discharge, No Nose pain, No Nose discharge, No Nose congestion, No Mouth pain, No Mouth swelling, No Throat pain, No Throat swelling, No Other Cardiovascular: No Chest Pain, No Palpitations, No Orthopnea, No Paroxysmal Noc. Dyspnea, No Edema, No Lt Headedness, No Other Respiratory: No Cough, No Dry, No Wheezing, No Hemoptysis, No Pleuritic Pain, No Sputum Gastrointestinal: No Nausea, No Vomiting, No Abdominal Pain, No Diarrhea, No Constipation, No Melena, No Hematochezia, No Other Genitourinary: No Dysuria, No Frequency, No Incontinence, No Hematuria, No Retention, No Other Musculoskeletal: No other, No neck pain, No shoulder pain, No arm pain, No back pain, No hand pain, No leg pain, No foot pain Skin: No Rash, No Lesions, No Jaundice, No Bruising, No Other Objective Vitals Vital Signs Date Time Temp Pulse Resp B/P (MAP) Pulse Ox O2 Delivery O2 Flow Rate FiO2 03/31/24 17:45 124/77 03/31/24 17:00 98.9 76 18 99 98.9 03/31/24 10:00 Nasal Cannula* 3 32 Intake/Output Intake and Output 03/31/24 07:00 Intake Total 2370 ml Output Total 3575 ml Balance -1205 ml Intake Oral 1620 ml IV Total 750 ml Output Urine Total 3575 ml # Bowel Movements 1 Exam Gen: in bed hard of hearing Cvs: Aortic Click Resp: Creps b/l Abd: Soft, NT Sensor Technician: AAO x 3 Medications Current Medications Medications Dose Ordered Sig/Nelsy Route Start Time Stop Time Status Last Admin Dose Admin Aspirin 81 mg DAILY PO 03/30/24 10:00 03/31/24 09:28 81 MG Carvedilol 3.125 mg Q12HR PO 03/29/24 22:00 03/31/24 09:28 3.125 MG Atorvastatin Calcium 10 mg HS PO 03/29/24 22:00 03/30/24 21:44 10 MG Hydralazine HCl 10 mg Q6HP PRN IV 03/29/24 14:00 Sodium Chloride 10 ml Q8HR IV 03/29/24 14:00 03/31/24 14:01 10 ML Acetaminophen/ Hydrocodone Bitart 1 tab Q4HP PRN PO 03/29/24 14:00 Ondansetron HCl 4 mg Q4HP PRN IV 03/29/24 14:00 Docusate Sodium 100 mg BIDPRN PRN PO 03/29/24 14:00 Acetaminophen 650 mg Q6HP PRN PO 03/29/24 14:00 Levetiracetam 100 ml @ 400 mls/hr BID IV 03/29/24 22:00 03/31/24 09:28 400 MLS/HR Nitroglycerin 0.4 mg Q5MINP PRN SL 03/29/24 15:30 Morphine Sulfate 2 mg Q30M PRN IV 03/29/24 15:30 Doxycycline Hyclate 250 ml @ 125 mls/hr Q12H IV 03/29/24 17:30 03/31/24 17:45 125 MLS/HR Albuterol 2.5 mg Q6HPRN PRN NEB 03/29/24 17:30 Ipratropium [place] 0.5 mg Q6HPRN PRN NEB 03/29/24 17:30 Laboratory Results Laboratory Tests 03/30/24 05:12 03/31/24 06:00 Chemistry Test 03/31/24 06:00 Calcium Level 9.9 mg/dL (8.7-10.4) Magnesium Level 2.3 mg/dL (1.6-2.6) Urinalysis Test 03/30/24 13:00 Urine Color Colorless (Yellow) Urine Clarity Clear (Clear) Urine pH 5.0 (5.0-9.0) Urine Specific [place] 1.006 (1.001-1.035) Urine Protein Negative (Negative) Urine Ketones Negative (Negative) Urine Blood Trace /uL (Negative) H Urine Nitrite Negative (Negative) Urine Bilirubin Negative (Negative) Urine Urobilinogen Normal mg/dL (Negative) Urine Leukocyte Esterase Negative /uL (Negative) Urine RBC <1 /hpf (0 - 3) Urine WBC <1 /hpf (0 - 3) Urine Squamous Epithelial Cells None seen /hpf (<5) Urine Bacteria None seen /hpf (None Seen) Urine Creatinine 13.77 mg/dL (30.0-125.0) L Urine Sodium 109 mmol/L (40-220) Urine Glucose Normal mg/dL (Normal) Urine Total Protein 17.4 mg/dL (1-14) H Assessment/Plan Assessment/Plan # Acute Hypoxic Resp Failure - Titrate oxygen down - Patient does NOT use home oxygen # Acute Systolic CHF - HOLD Lasix - Monitor I&O # 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 - Nephro Cx - Urine Studies # Goals of care discussion >18 mins FULL CODE Plan discussed with: Patient My Orders Orders - REBECCA DODD MD Procedure Category Date Status Time Dietary NOTICE 03/31/24 Transmitted Recommendations 11:12 Basic Metabolic Panel LAB 04/01/24 Verified 04:00 B-Type Natriuretic LAB 04/01/24 Verified Peptide 04:00 Magnesium LAB 04/01/24 Verified 04:00 Chest Two Views XY 04/01/24 Verified Routine 07:00 Date of Service: Mar 31, 2024 Billing Provider: REBECCA DODD MD Common Visit Codes: [id number] INP/OBS CARE(MOD) REBECCA DODD MD Mar 31, 2024 17:59
[2024-04-01] VITALS (8 sets, daily range): BP systolic 99–112; BP diastolic 65–73; PULSE 74–77; RESP 17–20; TEMP 97.3–98.6; O2SAT 96–100
[2024-04-01 07:24] LABS: Anion Gap 8 (5-15); Carbon Dioxide 30 mmol/L (20-31); Chloride 103 mmol/L (98-107); Sodium 141 mmol/L (136-145)
[2024-04-01 07:25] LABS: Calcium 10.1 mg/dL (8.7-10.4)
[2024-04-01 07:30] LABS: BUN/Creatinine Ratio 21.5 (10.0-20.0); Glucose 88 mg/dL (74-106); Magnesium 2.2 mg/dL (1.6-2.6)
[2024-04-01 07:32] LABS: Blood Urea Nitrogen 61 mg/dL (9-23)
--- NOTE | 2024-04-01 09:21 | DVH ---
CHEST RADIOGRAPH Indication: Shortness of breath Technique: Frontal and lateral view of the chest was obtained Comparison: XY CHEST TWO VIEWS ROUTINE on DOS: 09/12/22 FINDINGS: Lines and Tubes: Left chest wall pacemaker / AICD. Median sternotomy. Lungs: Congestion Pleura: Small bilateral pleural effusions. No pneumothorax. Cardiomediastinal contours: Cardiomegaly. Bones: Unremarkable IMPRESSION: Pulmonary vascular congestion. This is improved since 03/29/2024.
--- NOTE | 2024-04-01 10:11 | DVHPNRES ---
Progress Note Date Seen: Apr 01, 2024 Resident Creating Document: TOOTIE SCHNEIDER RESIDENT Medical Necessity Reason Pt with a Central, PICC or Fol: No Subjective Review of Systems Patient is 88-year-old male with past medical history of hypertension, hyperlipidemia, CHF, gout, seizure, anxiety who brought to the hospital with worsening shortness of breath, at the evaluation patient was on 2 L oxygen via nasal cannula. Patient denied any other symptoms including fever, cough, chills, sputum production, chest pain, any other symptoms. Nephrology consultation was done for acute on chronic renal failure. Patient is poor historian not able to provide which medication he takes, which kind of medical condition he has. All other information obtained from medical records. Past surgical history: Pacemaker, tonsillectomy, aortic valve surgery. CMP: Creatinine 2.38, 2.55. GFR 26, 24. Renal ultrasound on 03/30/24 : Echogenic bilateral kidneys suggestive of chronic medical renal disease. Bilateral renal cysts. The prostate is measures at the upper limits of normal in size, measuring 4.7 cm. No hydronephrosis. Urine creatinine 13.77 Urine sodium 109 Urine total protein 17.4 Echocardiogram: Left ventricular ejection fraction 45, 50%, global wall hypokinesia. Patient is seen and examined at bedside. Patient continued to feel better. No other complaints. Objective vital signs Vital Sign Date Time Temp Pulse Resp B/P (MAP) Pulse Ox O2 Delivery O2 Flow Rate FiO2 04/01/24 09:00 97.3 76 17 104/71 (82) 99 97.3 04/01/24 07:40 Nasal Cannula 3.0 04/01/24 07:40 32 Total Intake and Output 03/31/24 03/31/24 04/01/24 15:00 23:00 07:00 Intake Total 1520 ml 1355 ml 625 ml Output Total 1650 ml 780 ml Balance 1520 ml -295 ml -155 ml medications Current Medications Medications Dose Ordered Sig/Nelsy Route Start Time Stop Time Status Last Admin Dose Admin Aspirin 81 mg DAILY PO 03/30/24 10:00 03/31/24 09:28 81 MG Carvedilol 3.125 mg Q12HR PO 03/29/24 22:00 03/31/24 09:28 3.125 MG Atorvastatin Calcium 10 mg HS PO 03/29/24 22:00 03/31/24 22:09 10 MG Hydralazine HCl 10 mg Q6HP PRN IV 03/29/24 14:00 Sodium Chloride 10 ml Q8HR IV 03/29/24 14:00 04/01/24 06:07 10 ML Acetaminophen/ Hydrocodone Bitart 1 tab Q4HP PRN PO 03/29/24 14:00 Ondansetron HCl 4 mg Q4HP PRN IV 03/29/24 14:00 Docusate Sodium 100 mg BIDPRN PRN PO 03/29/24 14:00 Acetaminophen 650 mg Q6HP PRN PO 03/29/24 14:00 Levetiracetam 100 ml @ 400 mls/hr BID IV 03/29/24 22:00 03/31/24 22:08 400 MLS/HR Nitroglycerin 0.4 mg Q5MINP PRN SL 03/29/24 15:30 Morphine Sulfate 2 mg Q30M PRN IV 03/29/24 15:30 Doxycycline Hyclate 250 ml @ 125 mls/hr Q12H IV 03/29/24 17:30 04/01/24 06:03 125 MLS/HR Albuterol 2.5 mg Q6HPRN PRN NEB 03/29/24 17:30 Ipratropium [place] 0.5 mg Q6HPRN PRN NEB 03/29/24 17:30 Examination General Appearance: Cooperative. Well developed. Well nourished. NAD Head Exam: Normal inspection Neck Exam: Normal inspection. Non-tender. Normal alignment Pulmonary/Respiratory: Chest non-tender. Bilateral lower lung base crackles. Cardiovascular/Chest: Regular rate and rhythm. No murmurs. No JVD. Peripheral Pulses: 2+ Radial (R). 2+ Radial (L). 2+ Pedal (R). 2+ Pedal (L) Abdominal Exam: Normal bowel sounds. Soft. Nontender. No hepatospenomegaly. No masses Ankle Exam: Negative ankle edema Lower extremities: Negative lower extremity edema Neuro/Mental Status: A&O x4. Coherent Thoughts/Psych: Normal thought pattern. Appropriate mood and affect. Good judgement and insight Appearance: In no acute distress Skin Exam: Normal inspection. Normal color. Warm. Dry laboratory and microbiology Laboratory Tests 04/01/24 06:52 03/30/24 05:12 Test 04/01/24 06:52 Range/Units Serum Glucose 88 74-106 mg/dL Problem List/Assessment/Plan Problem List/Assessment/Plan Acute on chronic HFrEF Acute kidney injury on Chronic kidney disease stage IV hemodynamic etiology Acute hypoxic respiratory failure History of gout History of seizure Presence of pacemaker Plan/recommendation Dr. Wright -COntinue BID IV lasix. -Continue 2 g sodium diet -fluid restriction: Maintained fluid consumption less than 1.2 L. -urinalysis: Negative for UTI. -renal ultrasound:Echogenic bilateral kidneys suggestive of chronic medical renal disease. Bilateral renal cysts. The prostate is measures at the upper limits of normal in size, measuring 4.7 cm. No hydronephrosis. -Echo(03/30/24):Mildly reduced left ventricular systolic function in global fashion estimated ejection fraction of 45-50%. There is global wall hypokinesia. -chest x-ray: Pulmonary vascular congestion -continue to monitor urine output: negative balance 570. Addendum Patient seen and examined, plan discussed with resident. Agree with above, we will follow closely Chest x-ray still showing pulmonary vascular congestion patient on 3 L of nasal cannula Recommend Lasix IV b.i.d. 40 mg for now Plan discussed with: Patient, Other (RN) Dietary Evaluation Review Comments: 1) Consider a Renal Specific K2,low phos,2gmNa,90gPro/Cardiac diet 2) Continue current plan of care Expected Outcomes/Goals: 1) Pt labs to improve 2) F/U in 3-5 days TOOTIE SCHNEIDER Apr 01, 2024 10:11 KIERA WRIGHT MD Apr 01, 2024 14:44
[2024-04-01] MEDS: FUROSEMIDE 40 MG/4 ML VIAL IV ONE (13:02)
[2024-04-01] MEDS ORDERED: ALBUAER3 IN (15:34)
[2024-04-01] MEDS ORDERED: DOXY-286 PO (15:34)
[2024-04-01] MEDS ORDERED: FURO1TAB33 PO (15:34)
--- NOTE | 2024-04-01 15:42 | DVHDS2 ---
Discharge Summary Date of Admission Mar 29, 2024 at 15:24 Date of Discharge: Apr 01, 2024 Admitting Diagnosis Acute Hypoxic Resp Failure Labs/Diagnostic Data: Laboratory Results Test 04/01/24 06:52 03/30/24 13:00 03/30/24 05:12 03/29/24 13:02 Sodium Level 141 mmol/L (136-145) Potassium Level 4.0 mmol/L (3.5-5.1) Chloride Level 103 mmol/L (98-107) Carbon Dioxide Level 30 mmol/L (20-31) Anion Gap 8 (5-15) Blood Urea Nitrogen 61 mg/dL (9-23) Creatinine 2.84 mg/dL (0.700-1.30) Glomerular Filtration Rate Calc 21 mL/min (>90) BUN/Creatinine Ratio 21.5 (10.0-20.0) Serum Glucose 88 mg/dL (74-106) Calcium Level 10.1 mg/dL (8.7-10.4) Magnesium Level 2.2 mg/dL (1.6-2.6) B-Type Natriuretic Peptide 59.16 pg/mL (0-100) Urine Color Colorless (Yellow) Urine Clarity Clear (Clear) Urine pH 5.0 (5.0-9.0) Urine Specific [place] 1.006 (1.001-1.035) Urine Protein Negative (Negative) Urine Ketones Negative (Negative) Urine Blood Trace /uL (Negative) Urine Nitrite Negative (Negative) Urine Bilirubin Negative (Negative) Urine Urobilinogen Normal mg/dL (Negative) Urine Leukocyte Esterase Negative /uL (Negative) Urine RBC <1 /hpf (0 - 3) Urine WBC <1 /hpf (0 - 3) Urine Squamous Epithelial Cells None seen /hpf (<5) Urine Bacteria None seen /hpf (None Seen) Urine Creatinine 13.77 mg/dL (30.0-125.0) Urine Sodium 109 mmol/L (40-220) Urine Glucose Normal mg/dL (Normal) Urine Total Protein 17.4 mg/dL (1-14) White Blood Count 5.2 10^3/uL (4.4-10.8) Red Blood Count 3.90 10^6/uL (4.5-5.90) Hemoglobin 13.1 g/dL (13.5-17.5) Hematocrit 37.9 % (41.0-53.0) Mean Corpuscular Volume 97.4 fL (80.0-100.0) Mean Corpuscular Hemoglobin 33.6 pg (28.0-32.0) Mean Corpuscular Hemoglobin Concent 34.5 g/dL (32.0-36.0) Red Cell Distribution Width 15.2 % (11.8-14.3) Platelet Count 105 10^3/uL (140-450) Mean Platelet Volume 9.4 fL (6.9-10.8) Neutrophils (%) (Auto) 69.0 % (37.0-80.0) Lymphocytes (%) (Auto) 13.4 % (10.0-50.0) Monocytes (%) (Auto) 10.0 % (0.0-12.0) Eosinophils (%) (Auto) 6.1 % (0.0-7.0) Basophils (%) (Auto) 1.5 % (0.0-2.0) Neutrophils # (Auto) 3.6 10 ^3/uL (1.6-8.6) Lymphocytes # (Auto) 0.7 10 ^3/uL (0.4-5.4) Monocytes # (Auto) 0.5 10 ^3/uL (0-1.3) Eosinophils # (Auto) 0.3 10 ^3/uL (0-0.8) Basophils # (Auto) 0.1 10 ^3/uL (0-0.2) Nucleated Red Blood Cells 0.1 % Total Bilirubin 0.7 mg/dL (0.2-1.0) Aspartate Amino Transferase (AST) 17 U/L (13-40) Alanine Aminotransferase (ALT) 14 U/L (7-40) Alkaline Phosphatase 87 U/L (46-116) Total Protein 6.0 g/dL (5.7-8.2) Albumin 3.7 g/dL (3.2-4.8) Influenza Type A Antigen Negative (Negative) Influenza Type B Antigen Negative (Negative) SARS-CoV-2 Antigen (Rapid) Negative (NEGATIVE) Test 03/29/24 11:20 Troponin I High Sensitivity 18 ng/L (</=54) Other Laboratory Tests 04/01/24 06:52 03/30/24 05:12 Brief Hx & Hospital Course: The patient is a 88-year-old male with past medical history of CHF, gout, depression, seizures, anxiety, HLD, and hypertension who presented to [facility] ED with complaint of shortness of breaths. Patient reports symptoms progressively get worse with generalized weakness, progressive shortness of breath with hypoxia, getting worse today that prompted this visit. Patient was seen and evaluated in the ED, laboratory data shows WBC 5.9, platelets 106, sodium 141, potassium 4.7, BUN 41, creatinine 2.38, glucose 103, troponin 18, BNP 140.58, blood pressure 154/90, heart rate 76, temperature 98 point 9 F, O2 saturation 99% on oxygen. Chest x-ray revealing cardiomegaly with pulmonary vascular congestion; patchy bibasilar opacities with small bilateral pleural effusions. Patient was started on IV Lasix. Patient was treated with Lasix IV and Doxy. Patient is on room air. Will followup with me in clinic. Resume Warfarin at home, although patient is risk of falls, patient will be resumed on Warfarin as he will be using a walker. Operations or Procedures CHEST RADIOGRAPH Indication: Shortness of breath Technique: Frontal and lateral view of the chest was obtained Comparison: XY CHEST TWO VIEWS ROUTINE on DOS: 09/12/22 FINDINGS: Lines and Tubes: Left chest wall pacemaker / AICD. Median sternotomy. Lungs: Congestion Pleura: Small bilateral pleural effusions. No pneumothorax. Cardiomediastinal contours: Cardiomegaly. Bones: Unremarkable IMPRESSION: Pulmonary vascular congestion. This is improved since 03/29/2024. APPROVED REPORT EXAM: Two-dimensional and M-mode echocardiogram with Doppler and color Doppler. Blood Pressure: 112/65 mmHg INDICATION Heart Failure Surgery/Intervention Valve Replacement: Type: AV RISK FACTORS Height: 5'6", Weight: 185 DIMENSIONS LVDd 4.7 (3.8-5.7cm) LA (2D) 4.8 (1.9-4.0cm) Aortic Root (2.0- 3.7cm) LVDs 3.6 (2.5-4.0cm) LA (MM) (1.9-4.0cm) Aortic Cusp Exc (1.5- 2.0cm) EF (%) 48.0 (55-70%) Rt. [place]rium 4.6 (1.9-4.0cm) Asc. Aorta 4.4 cm IVSd 1.2 (0.7-1.1cm) RV (D) 3.8 (1.8-2.4cm) PWd 1.1 (0.7-1.1cm) Mitral Valve Mitral Mitral Stenosis E wave m/s MV Mean GR. 12mmHg A wave m/s MV Peak GR. 20mmHg E/A ratio 0.0 2D MVA cm2 DECEL Time ms PRESS 1/2 Time 258ms IVRT ms Dop MVA 0.85cm2 Aortic Valve Aortic Valve Aortic Stenosis V1 0.80m/s AO Mean GR. 5mmHg V2 1.62m/s AO Peak GR. 10mmHg LVOT Diameter 2.4 (1.8-2.4cm) Doppler DOMINIQUE 2.23cm2 AI P 1/2 Time 227.06ms Other Information Quality : Technically Limited Rhythm : Technically limited study due to body habitus. Conclusion Mildly reduced left ventricular systolic function in global fashion estimated ejection fraction of 45-50%. There is global wall hypokinesia. Normal right ventricular size and dimension. Normal left ventricular systolic function. Borderline dilated right and left atria. The aortic valve is thickened and sclerotic. The mitral valve is heavily calcified very thickened there is severe mitral valve stenosis with a mean gradient of12 and peak gradient of20 mm of mercury. The valve area estimated at 0.86 with a pressure half-time 258 There is mild tricuspid valve regurgitation. The pulmonary valve is grossly normal. No pericardial effusion. Possible large size left pleural effusion. 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 Discharge Disposition: Home Discharge Statement: "Patient was advised to return to the ER or call 911 if any headaches, dizziness, shortness of breath, chest pain, abdominal pain, bleeding, fevers, or worsening of medical condition. Patient was counseled about treatment plan, medications, possible side effects, patientverbalized understanding. All questions were answered to the best of my ability. This discharge took greater then 30 minutes in planning, reviewing documentation, counseling the patient, and discussing with other team members." ASSESSMENT ASSESSMENT Assessment Date of Service: Apr 01, 2024 Billing Provider: REBECCA DODD MD Common Visit Codes: 99562-STW/OBS DISCH DAY >30min REBECCA DODD MD Apr 01, 2024 15:42
[2024-04-01] MEDS: FUROSEMIDE 40 MG/4 ML VIAL IV SCH (18:00)
== END 2024-04-01 18:00 | disposition home or self-care (01) | DRG 177 ==
LOC: EDBD 10:58 → ER 10:58 → TELE 15:24 → TELE-CENTR 18:52
PROVIDERS: ADMIT Nurse Practitioner Family; ATTEND Internal Medicine
DX: J15.69 Pneumonia due to other Gram-negative bacteria (principal); I50.23 Acute on chronic systolic (congestive) heart failure; J96.01 Acute respiratory failure with hypoxia; I13.0 Hypertensive heart and chronic kidney disease with heart failure and stage 1 through stage 4 chronic kidney disease, or unspecified chronic kidney disease; N17.9 Acute kidney failure, unspecified; N18.4 Chronic kidney disease, stage 4 (severe); E87.70 Fluid overload, unspecified; Z20.822 Contact with and (suspected) exposure to COVID-19; F41.9 Anxiety disorder, unspecified; F32.A Depression, unspecified; M10.9 Gout, unspecified; E78.5 Hyperlipidemia, unspecified; Z83.3 Family history of diabetes mellitus; Z82.49 Family history of ischemic heart disease and other diseases of the circulatory system; Z87.891 Personal history of nicotine dependence; Z82.5 Family history of asthma and other chronic lower respiratory diseases; Z95.0 Presence of cardiac pacemaker; Z79.01 Long term (current) use of anticoagulants; Z95.2 Presence of prosthetic heart valve
CPT/HCPCS: 36415; 71045; 71046; 76775; 80048; 80053; 81001; 82570; 83735; 83880; 84156; 84300; 84484; 85025; 87426; 87804; 93306; 96365; 96375; 97163; 99291; G0378; J3490

== ENCOUNTER 2024-07-23 09:46 | Day surgery (SDC) | payer MEDICARE, OTHER ==
[2024-07-21 11:36] LABS: Urine Bacteria None Seen /hpf (None Seen)
[2024-07-21 11:45] LABS: Basophils # (auto) 0.1 10 ^3/uL (0-0.2); Basophils % (auto) 1.1 % (0.0-2.0); Eosinophils # (auto) 0.2 10 ^3/uL (0-0.8); Eosinophils % (auto) 3.9 % (0.0-7.0); Hematocrit 39.2 % (41.0-53.0); Hemoglobin 13.5 g/dL (13.5-17.5); Lymphocytes # (auto) 0.7 10 ^3/uL (0.4-5.4); Lymphocytes % (auto) 11.3 % (10.0-50.0); Mean Corpuscular Hgb Conc. 34.4 g/dL (32.0-36.0); Mean Corpuscular Volume 95.9 fL (80.0-100.0); Monocytes # (auto) 0.5 10 ^3/uL (0-1.3); Monocytes % (auto) 9.1 % (0.0-12.0); Neutrophils # (auto) 4.3 10 ^3/uL (1.6-8.6); Neutrophils % (auto) 74.6 % (37.0-80.0); Nucleated Red Blood Cells % 0.3 %; Platelet Count (auto) 111 10^3/uL (140-450); Red Blood Cells 4.08 10^6/uL (4.5-5.90); Red Cell Distribution Width 13.8 % (11.8-14.3); White Blood Cell 5.8 10^3/uL (4.4-10.8)
[2024-07-21 11:59] LABS: INR 1.05 (0.9-1.15); Partial Thromboplastin Time 24.4 SEC (24.5-34.5); Prothrombin Time 11.1 sec (9.3-11.8)
[2024-07-21 12:21] LABS: Chloride 103 mmol/L (98-107); Potassium 4.3 mmol/L (3.5-5.1); Sodium 139 mmol/L (136-145)
[2024-07-21 12:22] LABS: Anion Gap 6 (5-15); Calcium 10.1 mg/dL (8.7-10.4); Carbon Dioxide 30 mmol/L (20-31)
[2024-07-21 12:27] LABS: BUN/Creatinine Ratio 16.3 (10.0-20.0); Glucose 96 mg/dL (74-106)
[2024-07-21 12:37] LABS: Urine Blood 1+ /uL (Negative); Urine Clarity Clear (Clear); Urine Color Light-Yellow (Yellow); Urine Protein, UAD 1+ (Negative); Urine Specific Gravity 1.011 (1.001-1.035); Urine Squamous Epithelial Cell None Seen /hpf (<5); Urine Urobilinogen Normal (Negative); Urine WBC < 1 /HPF (0-3)
[2024-07-21 12:40] LABS: Blood Urea Nitrogen 45 mg/dL (9-23)
[~2024-07-23] VITALS: Ht 167.6 cm; Wt 77.1 kg
[2024-07-23] VITALS (7 sets, daily range): BP systolic 110–132; BP diastolic 70–80; PULSE 75; RESP 15–22; O2SAT 99–100
[~2024-07-23 09:46] MED LIST changes: +ALBUAER3 IN; +AMLO1TAB22 PO; -BUME1TAB3 PO; +CARV6.2551 PO; +FURO40TA4 PO; +KEP500T PO; -LEVE500T40 PO; -OMEG120015 PO; +POTA-228 PO; -TAMS-35 PO; -WARF7.5T2 PO
[2024-07-23] MEDS ORDERED: VANCOMYCIN 1GM/250ML KIT 250 ML IV ONE (10:21)
[2024-07-23] MEDS ORDERED: VANCOMYCIN HCL 1000 MG VL ONE (10:25)
[2024-07-23] MEDS ORDERED: LIDOCAINE 2%HCL (LOCAL ANESTH.) INJ 20ML MDV ONE (10:25)
[2024-07-23] MEDS ORDERED: DOXYCYCLINE 100 MG TAB/CAP ONE (11:52)
[2024-07-23] MEDS: DOXYCYCLINE 100 MG TAB/CAP PO ONE (12:57)
[2024-07-23] MEDS ORDERED: fentaNYL CITRATE 100 MCG/2 ML VL ONE (13:50)
[2024-07-23] MEDS ORDERED: MIDAZOLAM HCL 2MG/2ML 2ml VIAL (1mg/ml) ONE (13:50)
--- NOTE | 2024-07-23 15:49 | DVHOP2 ---
Operative Report Procedure 07/23/24 Procedure Note Replacement of BIVAICD generator INDICATIONS: 1. ODALIS of the Biventricular ICD generator. 2. Ischemic cardiomyopathy with prior history of BIVAICD, 3. CHF II with EF 35% 4. Conscious sedation with Fentanyl and versed for one hour PROCEDURES: 1. Explantation of the old Biventricular implantable defibrillator generator [employer]. 2. Implantation of the new Biventricular implantable generator [employer]. 3. Fluoroscopy images and interpretation. 4. Interrogation and programming of the device. 5. Conscious sedation with fentanyl and versed for one hour PROCEDURE IN DETAILS: After obtaining informed consent with explanation of risks, benefits, and alternatives, the patient agreed upon the planned procedure, replacement of the biventricular implantable defibrillator generator. Patient understood and agreed the new company is [employer]. Under standard fashion, local and systemic anesthetic, left deltopectoral area was prepped and draped. Left deltopectoral pocket was opened and old biventricular implantable defibrillator from [employer] was removed from the pocket. The new biventricular implantable defibrillator from [employer] was connected to the leads. The pocket was irrigated with antibiotic solution. Antibiotic powder was poured into the pocket. The skin was closed in 2 layers and at the end was stapled. Atrial lead, LV lead and RV lead connected to new BIVAICD generator. CONCLUSION: Status post successful replacement of the biventricular implantable defibrillator secondary to end of life of the biventricular implantable defibrillator. RECOMMENDATIONS: Continue with antibiotic therapy, doxycycline 100 mg twice a day. ELZA GARCIA MD Jul 23, 2024 15:49
== END 2024-07-23 14:35 | disposition home or self-care (01) ==
LOC: CATH 09:46
PROVIDERS: ATTEND Specialist
DX: T82.121A Displacement of cardiac pulse generator (battery), initial encounter (principal); I25.5 Ischemic cardiomyopathy; I50.9 Heart failure, unspecified; D64.9 Anemia, unspecified; G62.9 Polyneuropathy, unspecified; I11.0 Hypertensive heart disease with heart failure; M10.9 Gout, unspecified; Y83.8 Other surgical procedures as the cause of abnormal reaction of the patient, or of later complication, without mention of misadventure at the time of the procedure
CPT/HCPCS: 33264; 36415; 80048; 81001; 85025; 85610; 85730; C1882; J2250; J3010; J3370; 99152; 99153

== ENCOUNTER 2024-10-13 15:13 | Inpatient (IN) | payer MEDICARE, OTHER ==
[~2024-10-13] VITALS: Ht 170.2 cm; Wt 72.3 kg
--- NOTE | 2024-10-13 15:36 | ED.PDOC ---
SOB-HPI HPI Comments 88 y.o male with PMHx of Asthma, HTN, CHF, hyperlipidemia, gout and seizures, presents to the ED for a chief complaint of SOB associated with a non productive cough that started 2 weeks ago. Patient was sent by Dr. Soto for higher level of care. Patient reports SOB is present on exertion and at rest with no alleviating factors. Patient denies any phlegm production, congestion, fever, chills, chest pain, nausea, vomiting, diarrhea or chest pain. Patient denies any tobacco or substance use. Chief Complaint: Shortness of Breath Time Seen by MD: 15:22 Primary Care Provider: YOUSIF Reviewed notes: Nurses Notes, Medications, Allergies Mode of Arrival: walker Severity: Moderate Timing: Weeks (2) Duration: Since onset Context: At Rest PE Risk Factors: None History of: Asthma, CHF Modifying Factors: Nothing Associated Signs and Symptoms: Cough If cough with SOB: Non-Productive Past Medical History PAST MEDICAL HISTORY: Anxiety, Asthma, CHF, Depression, Gout, High Lipids, HTN, Seizures Surgical History: Pacemaker, Tonsillectomy Family History Family History: Family hx of DM, Family hx of HTN Social History Smoker: Quit Greater Than 1 Year, Cigarettes Alcohol: Denies ETOH Use Drugs: Denies Drug Use Lives In: Home Constitutional: denies: chills, diaphoresis, fatigue, fever, malaise, sweats, weakness, others EENTM: denies: blurred vision, double vision, ear bleeding, ear discharge, ear drainage, ear pain, ear ringing, eye pain, eye redness, hearing loss, mouth pain, mouth swelling, nasal discharge, nose bleeding, nose congestion, nose pain, photophobia, tearing, throat pain, throat swelling, voice changes, others Respiratory: reports: cough, SOB at rest, shortness of breath, SOB with excertion; denies: hemoptysis, orthopnea, stridor, wheezing, others Cardiovascular: denies: chest pain, dizzy spells, diaphoresis, Dyspnea on exertion, edema, irregular heart beat, left arm pain, lightheadedness, palpitations, PND, syncope, others Gastrointestinal: denies: abdomen distended, abdominal pain, blood streaked bowels, constipated, diarrhea, dysphagia, difficulty swallowing, hematemesis, melena, nausea, poor appetite, poor fluid intake, rectal bleeding, rectal pain, vomiting, others Genitourinary: denies: burning, dysuria, flank pain, frequency, hematuria, incontinence, penile discharge, penile sore, pain, testicle pain, testicle swelling, urgency, others Neurological: denies: dizziness, fainting, headache, left sided numbness, left sided weakness, numbness, paresthesia, pre-existing deficit, right sided numbness, right sided weakness, seizure, speech problems, tingling, tremors, weakness, others Musculoskeletal: denies: back pain, gout, joint pain, joint swelling, muscle pain, muscle stiffness, neck pain, others Integumetry: denies: bruises, change in color, change in hair/nails, dryness, laceration, lesions, lumps, rash, wounds, others Allergic/Immunocompromised: denies: Difficulty Healing, Frequent Infections, Hives, Itching, others Hematologic/Lymphatic: denies: anemia, blood clots, easy bleeding, easy bruising, swollen glands, others Endocrine: denies: excessive hunger, excessive sweating, excessive thirst, excessive urination, flushing, intolerance to cold, intolerance to heat, unexplained weight gain, unexplained weight loss, others Psychiatric: denies: anxiety, bipolar disorder, depression, hopeless, panic disorder, schizophrenia, sleepless, suicidal, others All Other Systems: Reviewed and Negative Physical Exam General Appearance: Moderate Distress HEENT: Normal ENT Inspection, Pharynx Normal, TMs Normal Neck: Full Range of Motion, Non-Tender, Normal, Normal Inspection Respiratory: Chest Non-Tender, Lungs Clear, No Accessory Muscle Use, No Respiratory Distress, Normal Breath Sounds Cardiovascular: No Edema, No JVD, No Murmur, No Gallop, Normal Peripheral P ulses, Regular Rate/Rhythm Breast Exam: Deferred Gastrointestinal: No Organomegaly, Non Tender, No Pulsatile Mass, Normal Bowel Sounds, Soft Genitalia: Deferred Pelvic: Deferred Rectal: Deferred Extremities: No calf tenderness, No pedal edema Musculoskeletal : Apperance: Normal Neurologic: Alert, No Motor Deficits, No Sensory Deficits Cerebellar Function: NOT DONE Reflexes: NOT DONE Skin: Pallor Peripheral Pulses: 3+ Radial (R), 3+ Radial (L) Lymphatic: No Adenopathy EKG EKG : Pulse Rate (adult): 87 Cardiac Rhythm: Paced Was a procedure done? Was a procedure done?: No Differential Dx Differential Diagnosis: Anxiety, Asthma, Bronchitis, CHF, COPD, Dysrhythmia, Hyperventilation, Hyponatremia, Pneumonia, Respiratory Distress, URI X-Ray, Labs, Meds, VS Vital Signs Date Time Temp Pulse Resp B/P (MAP) Pulse Ox O2 Delivery O2 Flow Rate FiO2 10/13/24 15:37 87 Patient alert. Vitals stable. Complaining of shortness a breath. Ambulating with the assistance. He is short of breath upon ambulation. Possible CHF. Was given Lasix. Reviewed his history. Explained to the patient. Continue monitoring. Time of 1ST Reevaluation: 16:00 Reevaluation 1ST: Unchanged Patient Education/Counseling: Diagnosis, Treatment, Prognosis Family Education/Counseling: No Family Present Departure 1 Departure Time of Disposition: 15:45 Impression: Primary Impression: CHF (congestive heart failure) Qualified Codes: I50.43 - Acute on chronic combined systolic (congestive) and diastolic (congestive) heart failure Disposition: ADMITTED INPATIENT Admit to: Med Surg Condition: Guarded Critical Care Note Critical Care Time?: Yes (90 min-critical care time only) Critical care comment: Shortness a breath was given Lasix continue to monitor Stability Stability form required: No Heart Score Heart Score: Heart Score Response (Comments) Value History Slightly Suspicious 0 EKG Normal 0 Age >65 2 Risk Factors >3 or Hx ASHD 2 Troponin Normal limit 0 Total 4 I personally scribed for KIRIT EVANS MD ([email or web address]) on 10/13/24 at 15:36. Electronically submitted by Chitra Khan ([facility]). I personally scribed for KIRIT EVANS MD ([email or web address]) on 10/13/24 at 15:37. Electronically submitted by Chitra Khan ([facility]). KIRIT EVANS MD Oct 13, 2024 15:36
[2024-10-13 16:01] LABS: Basophils # (auto) 0.1 10 ^3/uL (0-0.2); Eosinophils # (auto) 0.9 10 ^3/uL (0-0.8); Hemoglobin 13.8 g/dL (13.5-17.5); Lymphocytes # (auto) 0.6 10 ^3/uL (0.4-5.4); Lymphocytes % (auto) 9.5 % (10.0-50.0); Mean Corpuscular Hemoglobin 32.6 pg (28.0-32.0); Mean Corpuscular Hgb Conc. 33.7 g/dL (32.0-36.0); Mean Corpuscular Volume 96.7 fL (80.0-100.0); Monocytes # (auto) 0.7 10 ^3/uL (0-1.3); Monocytes % (auto) 10.3 % (0.0-12.0); Neutrophils # (auto) 4.3 10 ^3/uL (1.6-8.6); Neutrophils % (auto) 65.2 % (37.0-80.0); Nucleated Red Blood Cells % 0.1 %; Platelet Count (auto) 147 10^3/uL (140-450); Red Blood Cells 4.24 10^6/uL (4.5-5.90); Red Cell Distribution Width 13.6 % (11.8-14.3); White Blood Cell 6.6 10^3/uL (4.4-10.8)
--- NOTE | 2024-10-13 16:04 | DVH ---
EXAM: XR Chest, 1 View CLINICAL INDICATION: sob TECHNIQUE: Frontal view of the chest. COMPARISON: XY CHEST PORTABLE on DOS: 03/29/24, CHEST PORTABLE on DOS: 07/07/19, CHEST PORTABLE on D OS: 07/03/19 FINDINGS: LUNGS AND PLEURAL SPACES: Left pleural effusion. HEART: Cardiomegaly with pulmonary congestion and edema. Superimposed pneumonia cannot be excluded. Left cardiac. MEDIASTINUM: Unremarkable. Normal mediastinal contour. BONES/JOINTS: Unremarkable. No acute fracture. OTHER FINDINGS: . IMPRESSION: 1. Cardiomegaly with pulmonary congestion and edema. Superimposed pneumonia cannot be excluded. 2. Left pleural effusion.
[2024-10-13 16:11] LABS: Anion Gap 8 (5-15); Carbon Dioxide 28 mmol/L (20-31); Chloride 107 mmol/L (98-107); Potassium 4.6 mmol/L (3.5-5.1); Sodium 143 mmol/L (136-145)
[2024-10-13 16:12] LABS: Calcium 9.7 mg/dL (8.7-10.4)
[2024-10-13 16:17] LABS: BUN/Creatinine Ratio 18.7 (10.0-20.0); Glucose 93 mg/dL (74-106)
[2024-10-13 16:20] LABS: Blood Urea Nitrogen 56 mg/dL (9-23)
[2024-10-13] MEDS ORDERED: HYDROcodone-ACET 5/325MG TAB PO PRN ×2 (17:00→17:15)
[2024-10-13] MEDS ORDERED: ONDANSETRON HCL 4 MG/2 ML VIAL IV PRN ×2 (17:00→17:15)
[2024-10-13] MEDS ORDERED: PIPERACILLIN-TAZOB 3.375GM 100 ML IV SCH (17:00)
[2024-10-13] MEDS ORDERED: MORPHINE SULFATE 4 MG/ML SYR/VIAL IV PRN (17:00)
[2024-10-13] MEDS ORDERED: MORPHINE SULFATE INJ 2 MG/ml SYRG IV PRN ×2 (17:00→17:15)
[2024-10-13] MEDS ORDERED: NITROGLYCERIN 0.4 MG SL TAB SL PRN ×2 (17:00→17:15)
[2024-10-13] MEDS ORDERED: ACETAMINOPHEN 325 MG TAB PO PRN ×2 (17:00→17:15)
[2024-10-13] MEDS ORDERED: BUME1TAB3 PO (17:13)
--- NOTE | 2024-10-13 17:13 | ECG ---
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
--- NOTE | 2024-10-13 17:26 | DVHHP2 ---
History of Present Illness Reason for Visit: SOB History of Present Illness Gumaro Bajwa is a 88-year-old male with past medical history of hypertension, hyperlipidemia, CHF, hard of hearing with hearing aids, anxiety, gout, depression, seizures, BIV AICD, pneumonia, tonsillectomy, and aortic valve surgery who presents to the ED with shortness of breath x2 weeks along with a cough. Patient reports that the cough is nonproductive. Patient denies any chest pain, lightheadedness, weakness, dizziness, fever, chills, abdominal pain, nausea, vomiting, or diarrhea. 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 Psych: Anxiety, Depression Rheumatologic: Gout Past Medical History Hard of hearing with hearing aids Past Surgical History: Other (Aortic valve surgery and BIV AICD), Tonsillectomy Family History: Other (Both parents ) Smoke: Quit ALCOHOL: none Drugs: None Lives: with Family Domestic Violence: Neg Review of Systems Respiratory: Cough, Shortness of breath Allergies: Coded Allergies: NO KNOWN ALLERGIES (Unverified , 07/21/24) Medications Current Medications Medications Dose Ordered Sig/Nelsy Route Start Time Stop Time Status Last Admin Dose Admin Sodium Chloride 1,000 ml @ 120 mls/hr Q8H20M IV 10/13/24 17:00 UNV Acetaminophen/ Hydrocodone Bitart 1 tab Q4HP PRN PO 10/13/24 17:00 UNV Ondansetron HCl 4 mg Q4HP PRN IV 10/13/24 17:00 UNV Acetaminophen 650 mg Q6HP PRN PO 10/13/24 17:00 UNV Morphine Sulfate 2 mg Q4HPRN PRN IV 10/13/24 17:00 UNV Nitroglycerin 0.4 mg Q5MINP PRN SL 10/13/24 17:00 UNV Morphine Sulfate 2 mg Q30M PRN IV 10/13/24 17:00 UNV Piperacillin Sod/ Tazobactam Sod 100 ml @ 25 mls/hr Q8HR IV 10/13/24 17:00 UNV Allopurinol 100 mg DAILY PO 10/14/24 10:00 UNV Amlodipine Besylate 2.5 mg DAILY PO 10/14/24 10:00 UNV Aspirin 81 mg DAILY PO 10/14/24 10:00 UNV Digoxin 0.125 mg MWF PO 10/15/24 10:00 UNV Gabapentin 100 mg QPM PO 10/13/24 18:00 UNV Levetiracetam 500 mg BID PO 10/13/24 22:00 UNV Patient Own Medication 6.25 mg DAILY PO 10/14/24 10:00 UNV Patient Own Medication 2,000 unit DAILY PO 10/14/24 10:00 UNV Patient Own Medication 1 tab DAILY PO 10/14/24 10:00 UNV Acetaminophen/ Hydrocodone Bitart 1 tab Q4HP PRN PO 10/13/24 17:15 UNV Ondansetron HCl 4 mg Q4HP PRN IV 10/13/24 17:15 UNV Acetaminophen 650 mg Q6HP PRN PO 10/13/24 17:15 UNV Nitroglycerin 0.4 mg Q5MINP PRN SL 10/13/24 17:15 UNV Morphine Sulfate 2 mg Q30M PRN IV 10/13/24 17:15 UNV Exam Vital Signs Vital Signs Date Time Temp Pulse Resp B/P (MAP) Pulse Ox O2 Delivery O2 Flow Rate FiO2 10/13/24 15:37 87 10/13/24 15:26 98.2 28 106/63 (77) 97 98.2 General Appearance: Alert, Oriented X3, Cooperative, No acute distress HEENT: Atraumatic, PERRLA, EOMI, Mucous membr. moist/pink Respiratory: Normal air movement Cardiovascular: Regular rate, Normal S1, Normal S2, No murmurs Abdominal: Soft Extremities: No edema Neuro: Normal speech, Normal tone, Sensation intact Psych/Mental Status: Mental status NL, Mood NL Labs/Xrays Labs Test 10/13/24 15:40 Range/Units White Blood Count 6.6 4.4-10.8 10^3/uL Red Blood Count 4.24 L 4.5-5.90 10^6/uL Hemoglobin 13.8 13.5-17.5 g/dL Hematocrit 41.0 41.0-53.0 % Mean Corpuscular Volume 96.7 80.0-100.0 fL Mean Corpuscular Hemoglobin 32.6 H 28.0-32.0 pg Mean Corpuscular Hemoglobin Concent 33.7 32.0-36.0 g/dL Red Cell Distribution Width 13.6 11.8-14.3 % Platelet Count 147 140-450 10^3/uL Mean Platelet Volume 9.1 6.9-10.8 fL Neutrophils (%) (Auto) 65.2 37.0-80.0 % Lymphocytes (%) (Auto) 9.5 L 10.0-50.0 % Monocytes (%) (Auto) 10.3 0.0-12.0 % Eosinophils (%) (Auto) 13.0 H 0.0-7.0 % Basophils (%) (Auto) 2.0 0.0-2.0 % Neutrophils # (Auto) 4.3 1.6-8.6 10 ^3/uL Lymphocytes # (Auto) 0.6 0.4-5.4 10 ^3/uL Monocytes # (Auto) 0.7 0-1.3 10 ^3/uL Eosinophils # (Auto) 0.9 H 0-0.8 10 ^3/uL Basophils # (Auto) 0.1 0-0.2 10 ^3/uL Nucleated Red Blood Cells 0.1 % Sodium Level 143 136-145 mmol/L Potassium Level 4.6 3.5-5.1 mmol/L Chloride Level 107 98-107 mmol/L Carbon Dioxide Level 28 20-31 mmol/L Anion Gap 8 5-15 Blood Urea Nitrogen 56 H 9-23 mg/dL Creatinine 3.00 H 0.700-1.30 mg/dL Glomerular Filtration Rate Calc 20 >90 mL/min BUN/Creatinine Ratio 18.7 10.0-20.0 Serum Glucose 93 74-106 mg/dL Calcium Level 9.7 8.7-10.4 mg/dL Troponin I High Sensitivity 14 </=54 ng/L B-Type Natriuretic Peptide 222.48 0-100 pg/mL EXAM: XR Chest, 1 View CLINICAL INDICATION: sob TECHNIQUE: Frontal view of the chest. COMPARISON: XY CHEST PORTABLE on DOS: 03/29/24, CHEST PORTABLE on DOS: 07/07/19, CHEST PORTABLE on DOS: 07/03/19 FINDINGS: LUNGS AND PLEURAL SPACES: Left pleural effusion. HEART: Cardiomegaly with pulmonary congestion and edema. Superimposed pneumonia cannot be excluded. Left cardiac. MEDIASTINUM: Unremarkable. Normal mediastinal contour. BONES/JOINTS: Unremarkable. No acute fracture. OTHER FINDINGS: . IMPRESSION: 1. Cardiomegaly with pulmonary congestion and edema. Superimposed pneumonia cannot be excluded. 2. Left pleural effusion. Assessment/Plan Assessment/Plan Assessment Acute on chronic CHF exacerbation Acute hypoxic respiratory failure likely due to pneumonia Hard of hearing BIV AICD Cardiomegaly Left pleural effusion Acute on chronic renal insufficiency History of hypertension History of hyperlipidemia History of anxiety History of gout History of depression History of seizures History of aortic valve surgery History of tonsillectomy History of pneumonia Plan Admit to med surge Supportive oxygen UA Chest x-ray BNP Troponin negative Antiemetics Pain management Duo nebs Diuretics Echo ordered Last echo on 03/30/2024 EF 45-50% IV antibiotics-ceftriaxone + azithromycin Home medications reconciled D-dimer Diet Strict I&Os Daily weights DVT prophylaxis-Lovenox PUD prophylaxis -PPIs Discussed plan of care with patient and nurse Rounding team to consider Nephrology consult Plan discussed with: Patient My Orders Orders - JENN MARIE BATCH FREEZER Procedure Category Date Status Time Sodium Chloride 0.9% PHA 10/13/24 Logged 17:00 Hydrocodone-Acet PHA 10/13/24 Logged 5/325mg Tab ([place] 17:00 Ondansetron Hcl PHA 10/13/24 Logged (Zofran) 17:00 Acetaminophen Tablet PHA 10/13/24 Logged (Tylenol Tablet) 17:00 Morphine Sulfate PHA 10/13/24 Logged Injection 17:00 Sequential ED 10/13/24 In Process Compression Device Nitroglycerin PHA 10/13/24 Logged Sublingual (Ntrostat 17:00 Morphine Sulfate PHA 10/13/24 Logged Injection 17:00 Stat Ekg For Chest ED 10/13/24 In Process Pain 16:46 Notify Md Of Changes ED 10/13/24 In Process From Base 16:46 Casting Agent For ED 10/13/24 In Process 24 Hours 16:46 Emergency Dysrhythmia ED 10/13/24 In Process Protocol 16:46 Rhythm Strips Once ED 10/13/24 In Process Every Shift 16:46 Piperacillin-Tazob PHA 10/13/24 Logged 3.375gm (Zosyn 3.375g 17:00 Psa Total+% Free LAB 10/13/24 Logged 16:46 * Surgical Consult CONS 10/13/24 Transmitted Allopurinol Tablet PHA 10/14/24 Logged (Zyloprim Tablet) 10:00 Amlodipine Tablet PHA 10/14/24 Logged (Norvasc Tablet) 10:00 Aspirin Enteric PHA 10/14/24 Logged Coated Tablet 10:00 Digoxin Tablet PHA 10/15/24 Logged (Lanoxin Tablet) 10:00 Gabapentin Capsule PHA 10/13/24 Logged (Neurontin Capsule) 18:00 Levetiracetam Tablet PHA 10/13/24 Logged (Keppra Tablet) 22:00 (Nf) Carvedilol PHA 10/14/24 Logged 10:00 (Nf) Cholecalciferol PHA 10/14/24 Logged (Vitamin D) 10:00 (Nf) Rosuvastatin PHA 10/14/24 Logged Calcium (Crestor) 10:00 Admit ADMIT 10/13/24 Transmitted 17:14 Allergies ED 10/13/24 In Process 17:14 Code Status CODE 10/13/24 Transmitted 17:14 Hydrocodone-Acet PHA 10/13/24 Logged 5/325mg Tab ([place] 17:15 Ondansetron Hcl PHA 10/13/24 Logged (Zofran) 17:15 Complete Blood Count LAB 10/14/24 Verified 04:00 Comprehensive LAB 10/14/24 Verified Metabolic Panel 04:00 Cardiac DIET 10/13/24 Transmitted Diet-2gna,Lofat,Lochol Dinner Echo 2d Mode Cardiac US 10/13/24 Logged DOP 17:14 Acetaminophen Tablet PHA 10/13/24 Logged (Tylenol Tablet) 17:15 Sequential ED 10/13/24 In Process Compression Device Nitroglycerin PHA 10/13/24 Logged Sublingual (Ntrostat 17:15 Morphine Sulfate PHA 10/13/24 Transmitted Injection 17:15 Oxygen By Nasal RT 10/13/24 Transmitted Cannula 17:14 D-Dimer LAB 10/13/24 Logged 17:14 Strict I & O ED 10/13/24 In Process 17:15 Daily Weight ED 10/13/24 In Process 17:15 Date of Service: Oct 13, 2024 Billing Provider: JENN MARIE Common Visit Codes: [id number] INP/OBS CARE (HIGH) JENN MARIE Oct 13, 2024 17:26
[2024-10-13] MEDS: ALBUTEROL SULF 2.5 MG/0.5ML(0.5%) NEB SOLN NEB SCH (17:55)
[2024-10-13] MEDS: IPRATROPIUM BROM 0.5 MG/2.5ML INH SOL NEB SCH (17:55)
[2024-10-13 18:29] VITALS: PULSE 81; RESP 20; O2SAT 99
[2024-10-13 19:05] VITALS: BP 135/99; PULSE 84; PULSE 94; RESP 18; RESP 20; TEMP 97.9; O2SAT 99
[2024-10-13 19:50] VITALS: BP 104/72; PULSE 81; RESP 20; TEMP 97.7; O2SAT 99
[2024-10-13 20:00] VITALS: RESP 18; O2SAT 96
[2024-10-13] MEDS: cefTRIAXone 1GM/50ML D5W 50 ML IV SCH (20:07)
[2024-10-13] MEDS: SODIUM CHLORIDE 0.9% 1,000 ML IV SCH (20:07)
[2024-10-13 21:00] VITALS: BP 118/75; PULSE 79; RESP 18; TEMP 98.2; O2SAT 96
[2024-10-13] MEDS: AZITHROMYCIN 500MG/ 250ML 250 ML IV SCH (21:12)
[2024-10-13 21:39] VITALS: PULSE 79; PULSE 80; RESP 18; O2SAT 96
[2024-10-13] MEDS: levETIRAcetam 500 MG TAB PO SCH (23:01)
[2024-10-13] MEDS: GABAPENTIN 100 MG CAP PO SCH (23:02)
[2024-10-13] MEDS: HEPARIN SODIUM (PORCINE) 5000 UNITS/ML 1ML VIAL SC SCH (23:05)
[2024-10-13 23:23] LABS: Urine Bacteria None Seen /hpf (None Seen)
[2024-10-13 23:42] LABS: Urine Blood TRACE /uL (Negative); Urine Clarity Clear (Clear); Urine Color Light-Yellow (Yellow); Urine Protein, UAD TRACE (Negative); Urine Specific Gravity 1.009 (1.001-1.035); Urine Squamous Epithelial Cell None Seen /hpf (<5); Urine Urobilinogen Normal (Negative); Urine pH 5.5 (5.0-9.0)
[2024-10-13 23:49] LABS: Urine WBC < 1 /HPF (0-3)
[2024-10-14] VITALS (16 sets, daily range): BP systolic 98–136; BP diastolic 56–73; PULSE 74–89; RESP 16–18; TEMP 97.8–98.1; O2SAT 92–100
[2024-10-14 06:15] LABS: Basophils # (auto) 0.1 10 ^3/uL (0-0.2); Basophils % (auto) 1.8 % (0.0-2.0); Eosinophils % (auto) 14.6 % (0.0-7.0); Hematocrit 36.2 % (41.0-53.0); Hemoglobin 12.4 g/dL (13.5-17.5); Lymphocytes # (auto) 0.6 10 ^3/uL (0.4-5.4); Lymphocytes % (auto) 9.4 % (10.0-50.0); Mean Corpuscular Hemoglobin 32.7 pg (28.0-32.0); Mean Corpuscular Hgb Conc. 34.1 g/dL (32.0-36.0); Mean Corpuscular Volume 95.6 fL (80.0-100.0); Monocytes # (auto) 0.7 10 ^3/uL (0-1.3); Monocytes % (auto) 10.8 % (0.0-12.0); Neutrophils # (auto) 4.2 10 ^3/uL (1.6-8.6); Neutrophils % (auto) 63.4 % (37.0-80.0); Nucleated Red Blood Cells % 0.2 %; Platelet Count (auto) 132 10^3/uL (140-450); Red Blood Cells 3.79 10^6/uL (4.5-5.90); Red Cell Distribution Width 13.7 % (11.8-14.3); White Blood Cell 6.6 10^3/uL (4.4-10.8)
[2024-10-14 06:38] LABS: Alkaline Phosphatase 99 U/L (46-116); Anion Gap 8 (5-15); BUN/Creatinine Ratio 17.3 (10.0-20.0); Calcium 9.2 mg/dL (8.7-10.4); Carbon Dioxide 29 mmol/L (20-31); Chloride 105 mmol/L (98-107); Glucose 76 mg/dL (74-106); Potassium 3.9 mmol/L (3.5-5.1); Sodium 142 mmol/L (136-145); Total Protein 6.1 g/dL (5.7-8.2)
[2024-10-14 06:39] LABS: Albumin 3.7 g/dL (3.2-4.8); Aspartate Aminotransferase 14 U/L (13-40); Bilirubin, Total 0.6 mg/dL (0.2-1.0)
[2024-10-14 06:45] LABS: Blood Urea Nitrogen 53 mg/dL (9-23)
[2024-10-14 06:46] LABS: Alanine Aminotransferase < 9 U/L (7-40)
[2024-10-14] MEDS: FUROSEMIDE 40 MG/4 ML VIAL IV SCH (09:28)
[2024-10-14] MEDS: ALLOPURINOL 100 MG TAB PO SCH (09:29)
[2024-10-14] MEDS: ASPirin-EC 81 mg tab PO SCH (09:29)
[2024-10-14] MEDS: CHOLECALCIFEROL (VITD3) 1,000UNIT=25mCg TAB PO SCH (09:29)
[2024-10-14] MEDS: CARVEDILOL 3.125 MG TAB PO SCH (09:30)
[2024-10-14] MEDS: amLODIPine BESYLATE 5 MG TAB PO SCH (09:31)
[2024-10-14] MEDS ORDERED: ENOXAPARIN SOD 30 MG/0.3 ML SYRINGE SC SCH (10:00)
--- NOTE | 2024-10-14 12:08 | DVHPN2 ---
Reviewed: Care Plan, H&P, Labs, Medications, Previous Orders, Radiology Changes from previous H/P or p: No Changes Respiratory: Cough, Shortness of breath Objective Vitals Vital Signs Date Time Temp Pulse Resp B/P (MAP) Pulse Ox O2 Delivery O2 Flow Rate FiO2 10/14/24 11:14 83 16 99 10/14/24 09:31 115/73 10/14/24 08:35 97.9 97.9 10/14/24 08:00 Nasal Cannula* 2 28 Intake/Output Intake and Output 10/14/24 07:00 Intake Total 1300 ml Output Total 800 ml Balance 500 ml Intake Oral 1000 ml IV Total 300 ml Output Urine Total 800 ml Medications Current Medications Medications Dose Ordered Sig/Nelsy Route Start Time Stop Time Status Last Admin Dose Admin Sodium Chloride 1,000 ml @ 120 mls/hr Q8H20M IV 10/13/24 17:00 10/13/24 20:07 120 MLS/HR Acetaminophen/ Hydrocodone Bitart 1 tab Q4HP PRN PO 10/13/24 17:00 Ondansetron HCl 4 mg Q4HP PRN IV 10/13/24 17:00 Acetaminophen 650 mg Q6HP PRN PO 10/13/24 17:00 Morphine Sulfate 2 mg Q4HPRN PRN IV 10/13/24 17:00 Nitroglycerin 0.4 mg Q5MINP PRN SL 10/13/24 17:00 Morphine Sulfate 2 mg Q30M PRN IV 10/13/24 17:00 Allopurinol 100 mg DAILY PO 10/14/24 10:00 10/14/24 09:29 100 MG Amlodipine Besylate 2.5 mg DAILY PO 10/14/24 10:00 Aspirin 81 mg DAILY PO 10/14/24 10:00 10/14/24 09:29 81 MG Digoxin 0.125 mg MWF PO 10/15/24 10:00 Gabapentin 100 mg HS PO 10/13/24 22:00 10/13/24 23:02 100 MG Levetiracetam 500 mg BID PO 10/13/24 22:00 10/14/24 09:41 500 MG Carvedilol 6.25 mg DAILY PO 10/14/24 10:00 10/14/24 09:30 6.25 MG Cholecalciferol 2,000 unit DAILY PO 10/14/24 10:00 10/14/24 09:29 2,000 UNIT Atorvastatin Calcium 40 mg HS PO 10/14/24 22:00 Acetaminophen/ Hydrocodone Bitart 1 tab Q4HP PRN PO 10/13/24 17:15 UNV Ondansetron HCl 4 mg Q4HP PRN IV 10/13/24 17:15 UNV Acetaminophen 650 mg Q6HP PRN PO 10/13/24 17:15 UNV Nitroglycerin 0.4 mg Q5MINP PRN SL 10/13/24 17:15 UNV Morphine Sulfate 2 mg Q30M PRN IV 10/13/24 17:15 UNV Ceftriaxone Sodium 50 ml @ 100 mls/hr DAILY@09 IV 10/13/24 17:15 10/14/24 09:30 100 MLS/HR Azithromycin 250 ml @ 125 mls/hr DAILY@1800 IV 10/13/24 18:00 10/13/24 21:12 125 MLS/HR Furosemide 40 mg DAILY IV 10/14/24 10:00 10/14/24 09:28 40 MG Albuterol 2.5 mg Q4HWA [facility] 10/13/24 18:00 10/14/24 11:04 2.5 MG Ipratropium [place] 0.5 mg Q4HWA [facility] 10/13/24 18:00 10/14/24 11:04 0.5 MG Enoxaparin Sodium 30 mg DAILY SC 10/14/24 10:00 UNV Heparin Sodium (Porcine) 5,000 units Q12HR SC 10/13/24 22:00 10/14/24 09:33 5,000 UNITS Laboratory Results Laboratory Tests 10/14/24 05:30 Chemistry Test 10/13/24 15:40 10/14/24 05:30 Calcium Level 9.7 mg/dL (8.7-10.4) 9.2 mg/dL (8.7-10.4) Albumin 3.7 g/dL (3.2-4.8) Total Protein 6.1 g/dL (5.7-8.2) Coagulation Test 10/13/24 15:40 D-Dimer, Quantitative 1.99 mg/L FEU (0.0-0.49) H Cardiac Markers Test 10/13/24 15:40 B-Type Natriuretic Peptide 222.48 pg/mL (0-100) LFT Test 10/14/24 05:30 Alanine Aminotransferase (ALT) < 9 U/L (7-40) Alkaline Phosphatase 99 U/L (46-116) Aspartate Amino Transferase (AST) 14 U/L (13-40) Total Bilirubin 0.6 mg/dL (0.2-1.0) Urinalysis Test 10/13/24 23:20 Urine Color Light-yellow (Yellow) Urine Clarity Clear (Clear) Urine pH 5.5 (5.0-9.0) Urine Specific [place] 1.009 (1.001-1.035) Urine Protein Trace (Negative) H Urine Ketones Negative (Negative) Urine Blood Trace /uL (Negative) H Urine Nitrite Negative (Negative) Urine Bilirubin Negative (Negative) Urine Urobilinogen Normal mg/dL (Negative) Urine Leukocyte Esterase Negative /uL (Negative) Urine RBC None seen /hpf (0 - 3) Urine Microscopic WBC < 1 /HPF (0-3) Urine Squamous Epithelial Cells None seen /hpf (<5) Urine Bacteria None seen /hpf (None Seen) Urine Glucose Normal mg/dL (Normal) Labs and/or images reviewed: Labs reviewed by me, Image(s) reviewed by me Assessment/Plan Assessment/Plan Acute hypoxic respiratory failure Community-acquired pneumonia Gram-positive/Gram-negative: Rocephin azithromycin albuterol Atrovent med neb Acute pulmonary edema Acute systolic CHF exacerbation Status post aortic valve repair: Coumadin SPENSER on CKD3 Depression Gout Seizures Anxiety Hypertension Hypercholesterolemia Time spent 70 minutes Advanced care planning time 20 minutes Patient is full code Plan discussed with: Patient Date of Service: Oct 14, 2024 Billing Provider: MEGAN GRIMES MD Common Visit Codes: [id number] INP/OBS CARE(HIGH) MEGAN GRIMES MD Oct 14, 2024 12:08
--- NOTE | 2024-10-14 14:44 | DVH ---
Bilateral lower extremity venous duplex Clinical History: pain Comparison: None Technique: Duplex Doppler evaluation of the deep venous systems of both lower extremities from the common femora l veins to the popliteal veins including color Doppler and spectral/pulsed waveform analysis was perf ormed. Findings: RIGHT SIDE: The common femoral vein demonstrates appropriate compressibility and waveform variability. There is compressibility/patency of the great saphenous vein at the proximal thigh. The femoral vein demonstrates appropriate compressibility and waveform variability. The deep femoral vein demonstrates appropriate compressibility and waveform variability. The popliteal vein demonstrates appropriate compressibility and waveform variability. There is normal compressibility at the tibioperoneal trunk. LEFT SIDE: The common femoral vein demonstrates appropriate compressibility and waveform variability. There is compressibility/patency of the great saphenous vein at the proximal thigh. The femoral vein demonstrates appropriate compressibility and waveform variability. The deep femoral vein demonstrates appropriate compressibility and waveform variability. The popliteal vein demonstrates appropriate compressibility and waveform variability. There is normal compressibility at the tibioperoneal trunk. Impression: No right or left femoropopliteal venous thrombosis.
[2024-10-14 15:50] LABS: INR 1.13 (0.9-1.15); Partial Thromboplastin Time 27.5 SEC (24.5-34.5); Prothrombin Time 11.8 sec (9.3-11.8)
--- NOTE | 2024-10-14 15:55 | DVHSR ---
APPROVED REPORT EXAM: Two-dimensional and M-mode echocardiogram with Doppler and color Doppler. Blood Pressure: 99/66 mmHg INDICATION Syncope Surgery/Intervention Valve Replacement: Type: AV Pacemaker: RISK FACTORS Height: 5'7", Weight: 175 DIMENSIONS LVDd4.4 (3.8-5.7cm)LA (2D)4.7 (1.9-4.0cm)Aortic Root (2.0-3.7cm) LVDs3.2 (2.5-4.0cm)LA (MM) (1.9-4.0cm)Aortic Cusp Exc (1.5-2.0cm) EF (%) 53.0 (55-70%)Rt. Atrium (1.9-4.0cm)Asc. Aorta3.9 cm IVSd1.0 (0.7-1.1cm)RV (D) (1.8-2.4cm) Mitral Valve MitralMitral Stenosis E wavem/sMV Mean GR.15mmHg A wavem/sMV Peak GR.27mmHg E/A ratio0.02D MVAcm2 DECEL TimemsPRESS 1/2 [id number] IVRTmsDop MVA1.23cm2 Aortic Valve Aortic ValveAortic Stenosis V10.73m/Nina Mean GR.5mmHg V21.44m/Nina Peak GR.9mmHg LVOT Diameter2.6 (1.8-2.4cm)Doppler AVA2.69cm2 Pulmonic Valve V20.65m/s Other Information Quality : Technically LimitedRhythm : Technically limited study due to body habitus. Conclusion lvef 35% by visual estimate RV dysfunction biv dysfunction s/p AVR, mild aortic regurg, left atrium enlarged no severe valve abnormaliteis noted trivial pericardial effusion noted pleural effusion noted
[2024-10-14] MEDS ORDERED: WARFARIN SODIUM 2.5 MG TAB PO ONE (17:00)
--- NOTE | 2024-10-14 17:03 | DVH ---
EXAM: NM NM VQ SCAN HISTORY: PULMONARY EMBOLISM COMPARISON: Chest radiograph from 10/13/2024 TECHNIQUE: Following the administration of the perfusion agent, standard projections of the lungs we re acquired. Findings: Perfusion images demonstrate homogeneous distribution of radiotracer throughout both lungs. No periph eral wedge-shaped moderate or large subsegmental or segmental mismatched perfusion defects to suggest acute pulmonary embolism. Impression: 1. Based on PIOPED criteria, low probability for pulmonary embolism.
--- NOTE | 2024-10-14 18:12 | DVH ---
EXAM: CT CHEST WITHOUT CONTRAST History: PNA Comparison Study: CT chest abdomen pelvis from 07/08/2019 TECHNIQUE: Multidetector CT of the chest was performed. Imaging was performed without IV contrast. Ax ial, coronal, and sagittal multiplanar reformats were obtained from the axial data set by the technol lawanda. Radiation Dose : CTDI vol 17.13 mGy, DLP 663.71 mGy*cm. Findings: Lungs: Subtle ground-glass opacities in the right upper and lower lobes. Pleura: Large left and small right pleural effusions with compressive atelectasis. Heart/Great vessels: Cardiomegaly. Left atrial enlargement. Severe coronary atherosclerosis versus st ents. Mediastinum: Prominent bilateral hilar and mediastinal nodes. Soft tissues/Bones: Moderate multilevel degenerative changes of the thoracic spine Bilateral renal atrophy. Fatty infiltration of the pancreas. The partially visualized upper abdomen i s within normal limits. Impression: 1. Large left and small right pleural effusions with compressive atelectasis. 2. Subtle ground-glass opacities in the right upper and lower lobes may reflect an infectious/inflamm atory etiology. 3. Prominent bilateral hilar and mediastinal nodes favored reactive.
[2024-10-14] MEDS: ATORVASTATIN 20 MG TAB PO SCH (21:08)
[2024-10-14] MEDS: HEPARIN SODIUM (PORCINE) 5000 UNITS/ML 1ML VIAL SC SCH (21:10)
[2024-10-15] VITALS (18 sets, daily range): BP systolic 98–113; BP diastolic 65–80; PULSE 76–93; RESP 16–28; TEMP 97.6–98.7; O2SAT 91–100
--- NOTE | 2024-10-15 09:28 | DVHPN2 ---
Reviewed: Care Plan, H&P, Labs, Medications, Previous Orders, Radiology Changes from previous H/P or p: No Changes Respiratory: Cough, Shortness of breath Objective Vitals Vital Signs Date Time Temp Pulse Resp B/P (MAP) Pulse Ox O2 Delivery O2 Flow Rate FiO2 10/15/24 08:05 80 24 100 10/15/24 07:57 Nasal Cannula 1.0 10/15/24 07:57 24 10/15/24 05:00 97.8 110/74 (86) 97.8 Intake/Output Intake and Output 10/15/24 07:00 Intake Total 1725 ml Output Total 1300 ml Balance 425 ml Intake Oral 1425 ml IV Total 300 ml Output Urine Total 1300 ml # Voids 3 # Bowel Movements 1 Medications Current Medications Medications Dose Ordered Sig/Nelsy Route Start Time Stop Time Status Last Admin Dose Admin Acetaminophen/ Hydrocodone Bitart 1 tab Q4HP PRN PO 10/13/24 17:00 Ondansetron HCl 4 mg Q4HP PRN IV 10/13/24 17:00 Acetaminophen 650 mg Q6HP PRN PO 10/13/24 17:00 Morphine Sulfate 2 mg Q4HPRN PRN IV 10/13/24 17:00 Nitroglycerin 0.4 mg Q5MINP PRN SL 10/13/24 17:00 Morphine Sulfate 2 mg Q30M PRN IV 10/13/24 17:00 Allopurinol 100 mg DAILY PO 10/14/24 10:00 10/14/24 09:29 100 MG Amlodipine Besylate 2.5 mg DAILY PO 10/14/24 10:00 Aspirin 81 mg DAILY PO 10/14/24 10:00 10/14/24 09:29 81 MG Digoxin 0.125 mg MWF PO 10/15/24 10:00 Gabapentin 100 mg HS PO 10/13/24 22:00 10/14/24 21:08 100 MG Levetiracetam 500 mg BID PO 10/13/24 22:00 10/14/24 21:08 500 MG Carvedilol 6.25 mg DAILY PO 10/14/24 10:00 10/14/24 09:30 6.25 MG Cholecalciferol 2,000 unit DAILY PO 10/14/24 10:00 10/14/24 09:29 2,000 UNIT Atorvastatin Calcium 40 mg HS PO 10/14/24 22:00 10/14/24 21:08 40 MG Acetaminophen/ Hydrocodone Bitart 1 tab Q4HP PRN PO 10/13/24 17:15 UNV Ondansetron HCl 4 mg Q4HP PRN IV 10/13/24 17:15 UNV Acetaminophen 650 mg Q6HP PRN PO 10/13/24 17:15 UNV Nitroglycerin 0.4 mg Q5MINP PRN SL 10/13/24 17:15 UNV Morphine Sulfate 2 mg Q30M PRN IV 10/13/24 17:15 UNV Ceftriaxone Sodium 50 ml @ 100 mls/hr DAILY@09 IV 10/13/24 17:15 10/14/24 09:30 100 MLS/HR Azithromycin 250 ml @ 125 mls/hr DAILY@1800 IV 10/13/24 18:00 10/14/24 17:31 125 MLS/HR Furosemide 40 mg DAILY IV 10/14/24 10:00 10/14/24 09:28 40 MG Albuterol 2.5 mg Q4HWA [facility] [place] 10/13/24 18:00 10/15/24 07:57 2.5 MG Ipratropium [place] 0.5 mg Q4HWA [facility] [place] 10/13/24 18:00 10/15/24 07:57 0.5 MG Enoxaparin Sodium 30 mg DAILY SC 10/14/24 10:00 UNV Heparin Sodium (Porcine) 5,000 units Q12HR SC 10/14/24 22:00 10/14/24 21:10 5,000 UNITS Laboratory Results Laboratory Tests 10/14/24 05:30 Coagulation Test 10/14/24 15:19 Prothrombin Time 11.8 sec (9.3-11.8) Prothrombin Time INR 1.13 (0.9-1.15) Activated Partial Thromboplast Time 27.5 SEC (24.5-34.5) Urinalysis Test 10/13/24 23:20 Urine Color Light-yellow (Yellow) Urine Clarity Clear (Clear) Urine pH 5.5 (5.0-9.0) Urine Specific [place] 1.009 (1.001-1.035) Urine Protein Trace (Negative) H Urine Ketones Negative (Negative) Urine Blood Trace /uL (Negative) H Urine Nitrite Negative (Negative) Urine Bilirubin Negative (Negative) Urine Urobilinogen Normal mg/dL (Negative) Urine Leukocyte Esterase Negative /uL (Negative) Urine RBC None seen /hpf (0 - 3) Urine Microscopic WBC < 1 /HPF (0-3) Urine Squamous Epithelial Cells None seen /hpf (<5) Urine Bacteria None seen /hpf (None Seen) Urine Glucose Normal mg/dL (Normal) Labs and/or images reviewed: Labs reviewed by me, Image(s) reviewed by me Assessment/Plan Assessment/Plan Acute hypoxic respiratory failure O2 by nasal cannula Community-acquired right upper lobe pneumonia Gram-positive/Gram-negative: Rocephin azithromycin albuterol Atrovent med neb Large left pleural effusion: Consult for Radiologist for thoracentesis Acute pulmonary edema Acute systolic CHF exacerbation Status post aortic valve repair: Coumadin was discontinued by PCP Dr. 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 on CKD3 Depression Gout Seizures Anxiety Hypertension Hypercholesterolemia Discussed with his about hospice placement because of frequent admissions and poor prognosis and she got emotional as her son recently two weeks ago, she is also a patient admitted last night 219 b Time spent 70 minutes Advanced care planning time 20 minutes Patient is full code Plan discussed with: Patient My Orders Orders - MEGAN GRIMES MD Procedure Category Date Status Time Nm Vq Scan NM 10/14/24 Resulted 13:40 Bilat Lower Dvt US 10/14/24 Resulted 13:38 Coumadin Per Pharmacy ED 10/14/24 In Process Protcol 17:00 * Radiologist Consult CONS 10/15/24 Verified 08:30 Date of Service: Oct 15, 2024 Billing Provider: MEGAN GRIMES MD Common Visit Codes: [id number] INP/OBS CARE(HIGH) MEGAN GRIMES MD Oct 15, 2024 09:28
[2024-10-15] MEDS: DIGOXIN 0.125 MG TAB PO SCH (09:37)
--- NOTE | 2024-10-15 10:57 | DVH ---
PROCEDURE: Ultrasound-guided thoracentesis Procedural Personnel Attending physician(s): Eleno Aaron Fellow physician(s): None Resident physician(s): None A dvanced practice provider(s): None Pre-procedure diagnosis: Dyspnea Post-procedure diagnosis: Same Indication: Diagnostic and therapeutic Additional clinical history: None Complications: No immediate complications. IMPRESSION: Ultrasound-guided thoracentesis with drainage of 2000 mL of serous fluid. Plan: Resume care by clinical team. Fluid analysis pending. PROCEDURE SUMMARY: - Ultrasound-guided thoracentesis - Additional procedure(s): None PROCEDURE DETAILS: Pre-procedure Consent: Informed consent for the procedure including risks, benefits and alternatives was obtained and time-out was performed prior to the procedure. Preparation: The site was prepared an d draped using maximal sterile barrier technique including cutaneous antisepsis. Anesthesia/sedation level of anesthesia/sedation: No sedation Anesthesia/sedation administered by: Not applicable Total intra-service sedation time (minutes): Not applicable Limited thoracic ultrasound Limited thoracic ultrasound was performed. Left hemithorax findings: Large pleural effusion Right hemithorax findings: Not investigated Thoracentesis Local anesthesia was administered. A safe window for thoracentesis was identified with ultrasound. Th e pleural space was accessed and fluid return confirmed position. The fluid was drained. The catheter was removed and a sterile dressing was applied. Catheter size (Fr):5 Catheter valve: Yes Fluid appearance: serous Volume drained (mL): 2000 Post-drainage ultrasound: Small effusion Additional Details Additional description of procedure: None Registry event: V/3/f Device used: None Equipment details: None Specimens removed: Aspirated fluid was sent for analysis. Estimated blood loss (mL): Less than 10 Standardized report: [email or web address] Attestation Signer name: Eleno Aaron I attest that I was present for the entire procedure. I reviewed the stored images and agree with the report as written.
--- NOTE | 2024-10-15 11:01 | DVH ---
XY CHEST PORTABLE, HISTORY: POST THORACENTESIS COMPARISON: XY CHEST PORTABLE on DOS: 10/13/24, XY CHEST PORTABLE on DOS: 03/29/24, CHEST PORTABLE on D OS: 07/07/19 XY CHEST PORTABLE on DOS: 10/13/24, XY CHEST PORTABLE on DOS: 03/29/24, CHEST PORTABLE on DOS: 07/07/19 TECHNICAL DATA: 1 view of the chest was obtained. FINDINGS: Lines and tubes: There is a pacer. Cardiomediastinal silhouette: Prominent Pulmonary vasculature: prominent Lung expansion: normal Lung airspace: Patchy opacities Lung interstitium: prominent Pleura: No effusion seen Pneumothorax: yes Bones: Unremarkable Other: no IMPRESSION: Small left pneumothorax post thoracentesis. A pneumothorax ex vacuo is a consideration. Follow up cxr is suggested.
[2024-10-15 12:59] LABS: Body Fluid Red Blood Cells 1625 CUMM (0-2000); Body Fluid White Blood Cells 84 CUMM (0-200)
[2024-10-16] VITALS (18 sets, daily range): BP systolic 99–112; BP diastolic 48–75; PULSE 79–99; RESP 16–18; TEMP 97.2–98.3; O2SAT 91–100
--- NOTE | 2024-10-16 08:41 | DVHPN2 ---
Reviewed: Care Plan, H&P, Labs, Medications, Previous Orders, Radiology Changes from previous H/P or p: No Changes Respiratory: Cough, Shortness of breath Objective Vitals Vital Signs Date Time Temp Pulse Resp B/P (MAP) Pulse Ox O2 Delivery O2 Flow Rate FiO2 10/16/24 06:00 90 18 100 10/16/24 05:53 Room Air 10/16/24 05:53 0 21 10/16/24 05:00 98.3 100/48 (65) 98.3 Intake/Output Intake and Output 10/16/24 07:00 Intake Total 1600 ml Output Total 1675 ml Balance -75 ml Intake Oral 1300 ml IV Total 300 ml Output Urine Total 1675 ml Medications Current Medications Medications Dose Ordered Sig/Nelsy Route Start Time Stop Time Status Last Admin Dose Admin Acetaminophen/ Hydrocodone Bitart 1 tab Q4HP PRN PO 10/13/24 17:00 Ondansetron HCl 4 mg Q4HP PRN IV 10/13/24 17:00 Acetaminophen 650 mg Q6HP PRN PO 10/13/24 17:00 Morphine Sulfate 2 mg Q4HPRN PRN IV 10/13/24 17:00 Nitroglycerin 0.4 mg Q5MINP PRN SL 10/13/24 17:00 Morphine Sulfate 2 mg Q30M PRN IV 10/13/24 17:00 Allopurinol 100 mg DAILY PO 10/14/24 10:00 10/15/24 09:35 100 MG Amlodipine Besylate 2.5 mg DAILY PO 10/14/24 10:00 10/15/24 09:35 2.5 MG Aspirin 81 mg DAILY PO 10/14/24 10:00 10/15/24 09:33 81 MG Digoxin 0.125 mg MWF PO 10/15/24 10:00 10/15/24 09:37 0.125 MG Gabapentin 100 mg HS PO 10/13/24 22:00 10/15/24 21:26 100 MG Levetiracetam 500 mg BID PO 10/13/24 22:00 10/15/24 21:26 500 MG Carvedilol 6.25 mg DAILY PO 10/14/24 10:00 10/15/24 09:36 6.25 MG Cholecalciferol 2,000 unit DAILY PO 10/14/24 10:00 10/15/24 09:34 2,000 UNIT Atorvastatin Calcium 40 mg HS PO 10/14/24 22:00 10/15/24 21:26 40 MG Acetaminophen/ Hydrocodone Bitart 1 tab Q4HP PRN PO 10/13/24 17:15 UNV Ondansetron HCl 4 mg Q4HP PRN IV 10/13/24 17:15 UNV Acetaminophen 650 mg Q6HP PRN PO 10/13/24 17:15 UNV Nitroglycerin 0.4 mg Q5MINP PRN SL 10/13/24 17:15 UNV Morphine Sulfate 2 mg Q30M PRN IV 10/13/24 17:15 UNV Ceftriaxone Sodium 50 ml @ 100 mls/hr DAILY@09 IV 10/13/24 17:15 10/15/24 09:33 100 MLS/HR Azithromycin 250 ml @ 125 mls/hr DAILY@1800 IV 10/13/24 18:00 10/15/24 18:16 125 MLS/HR Furosemide 40 mg DAILY IV 10/14/24 10:00 10/15/24 09:33 40 MG Albuterol 2.5 mg Q4HWA [facility] 10/13/24 18:00 10/16/24 05:53 2.5 MG Ipratropium [place] 0.5 mg Q4HWA [facility] 10/13/24 18:00 10/16/24 05:53 0.5 MG Enoxaparin Sodium 30 mg DAILY SC 10/14/24 10:00 UNV Heparin Sodium (Porcine) 5,000 units Q12HR SC 10/14/24 22:00 10/15/24 21:24 5,000 UNITS Laboratory Results Laboratory Tests 10/14/24 05:30 Urinalysis Test 10/13/24 23:20 Urine Color Light-yellow (Yellow) Urine Clarity Clear (Clear) Urine pH 5.5 (5.0-9.0) Urine Specific [place] 1.009 (1.001-1.035) Urine Protein Trace (Negative) H Urine Ketones Negative (Negative) Urine Blood Trace /uL (Negative) H Urine Nitrite Negative (Negative) Urine Bilirubin Negative (Negative) Urine Urobilinogen Normal mg/dL (Negative) Urine Leukocyte Esterase Negative /uL (Negative) Urine RBC None seen /hpf (0 - 3) Urine Microscopic WBC < 1 /HPF (0-3) Urine Squamous Epithelial Cells None seen /hpf (<5) Urine Bacteria None seen /hpf (None Seen) Urine Glucose Normal mg/dL (Normal) Microbiology Microbiology Date/Time Source Procedure Growth Status 10/15/24 10:45 Pleural Fluid Received Labs and/or images reviewed: Labs reviewed by me, Image(s) reviewed by me Assessment/Plan Assessment/Plan Acute hypoxic respiratory failure O2 by nasal cannula Community-acquired right upper lobe pneumonia Gram-positive/Gram-negative: Rocephin azithromycin albuterol Atrovent med neb Large left pleural effusion: Status post drainage of 2 L of fluid by the radiologist fluid analysis pending, patient feels much better after thoracentesis and now on room air Acute pulmonary edema Acute systolic CHF exacerbation Status post aortic valve repair: Coumadin was discontinued by PCP Dr. 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 on CKD3 Depression Gout Seizures Anxiety Hypertension Hypercholesterolemia Discussed with his about hospice placement because of frequent admissions and poor prognosis and she got emotional as her son recently two weeks ago, she is also a patient admitted last night 219 b Time spent 50 minutes Advanced care planning time 20 minutes Patient is full code Plan discussed with: Patient My Orders Orders - MEGAN GRIMES MD Procedure Category Date Status Time Thoracentesis US 10/15/24 Resulted 09:58 Date of Service: Oct 16, 2024 Billing Provider: MEGAN GRIMES MD Common Visit Codes: [id number] INP/OBS CARE(HIGH) MEGAN GRIMES MD Oct 16, 2024 08:41
[2024-10-16 13:07] LABS: Protein, Body Fluid 2.3 g/dL (.)
[2024-10-17] VITALS (12 sets, daily range): BP systolic 91–116; BP diastolic 57–80; PULSE 79–91; RESP 15–18; TEMP 97.4–98.6; O2SAT 91–100
[2024-10-17 06:18] LABS: Basophils # (auto) 0.1 10 ^3/uL (0-0.2); Basophils % (auto) 1.1 % (0.0-2.0); Eosinophils % (auto) 13.6 % (0.0-7.0); Hematocrit 37.5 % (41.0-53.0); Hemoglobin 13.1 g/dL (13.5-17.5); Lymphocytes # (auto) 0.7 10 ^3/uL (0.4-5.4); Lymphocytes % (auto) 9.3 % (10.0-50.0); Mean Corpuscular Hemoglobin 32.9 pg (28.0-32.0); Mean Corpuscular Hgb Conc. 34.9 g/dL (32.0-36.0); Mean Corpuscular Volume 94.4 fL (80.0-100.0); Monocytes # (auto) 0.9 10 ^3/uL (0-1.3); Monocytes % (auto) 11.8 % (0.0-12.0); Neutrophils # (auto) 4.8 10 ^3/uL (1.6-8.6); Neutrophils % (auto) 64.2 % (37.0-80.0); Nucleated Red Blood Cells % 0.2 %; Platelet Count (auto) 134 10^3/uL (140-450); Red Blood Cells 3.97 10^6/uL (4.5-5.90); Red Cell Distribution Width 13.5 % (11.8-14.3); White Blood Cell 7.4 10^3/uL (4.4-10.8)
[2024-10-17 06:20] LABS: Calcium 9.9 mg/dL (8.7-10.4); Chloride 99 mmol/L (98-107); Potassium 3.9 mmol/L (3.5-5.1); Sodium 140 mmol/L (136-145)
[2024-10-17 06:21] LABS: Anion Gap 10 (5-15); Carbon Dioxide 31 mmol/L (20-31)
[2024-10-17 06:26] LABS: BUN/Creatinine Ratio 21.5 (10.0-20.0); Glucose 89 mg/dL (74-106)
[2024-10-17 06:30] LABS: Blood Urea Nitrogen 59 mg/dL (9-23)
--- NOTE | 2024-10-17 08:28 | DVHPN2 ---
Reviewed: Care Plan, H&P, Labs, Medications, Previous Orders, Radiology Changes from previous H/P or p: No Changes Respiratory: Cough, Shortness of breath Objective Vitals Vital Signs Date Time Temp Pulse Resp B/P (MAP) Pulse Ox O2 Delivery O2 Flow Rate FiO2 10/17/24 05:00 98.6 83 16 116/80 (92) 91 98.6 10/16/24 20:00 Room Air* 0 21 Intake/Output Intake and Output 10/17/24 07:00 Intake Total 2380 ml Output Total 925 ml Balance 1455 ml Intake Oral 2080 ml IV Total 300 ml Output Urine Total 925 ml # Voids 3 Medications Current Medications Medications Dose Ordered Sig/Nelsy Route Start Time Stop Time Status Last Admin Dose Admin Acetaminophen/ Hydrocodone Bitart 1 tab Q4HP PRN PO 10/13/24 17:00 Ondansetron HCl 4 mg Q4HP PRN IV 10/13/24 17:00 Acetaminophen 650 mg Q6HP PRN PO 10/13/24 17:00 Morphine Sulfate 2 mg Q4HPRN PRN IV 10/13/24 17:00 Nitroglycerin 0.4 mg Q5MINP PRN SL 10/13/24 17:00 Morphine Sulfate 2 mg Q30M PRN IV 10/13/24 17:00 Allopurinol 100 mg DAILY PO 10/14/24 10:00 10/16/24 10:15 100 MG Amlodipine Besylate 2.5 mg DAILY PO 10/14/24 10:00 10/16/24 10:18 2.5 MG Aspirin 81 mg DAILY PO 10/14/24 10:00 10/16/24 10:15 81 MG Digoxin 0.125 mg MWF PO 10/15/24 10:00 10/15/24 09:37 0.125 MG Gabapentin 100 mg HS PO 10/13/24 22:00 10/16/24 21:05 100 MG Levetiracetam 500 mg BID PO 10/13/24 22:00 10/16/24 21:05 500 MG Carvedilol 6.25 mg DAILY PO 10/14/24 10:00 10/16/24 10:14 6.25 MG Cholecalciferol 2,000 unit DAILY PO 10/14/24 10:00 10/16/24 10:15 2,000 UNIT Atorvastatin Calcium 40 mg HS PO 10/14/24 22:00 10/16/24 21:05 40 MG Acetaminophen/ Hydrocodone Bitart 1 tab Q4HP PRN PO 10/13/24 17:15 UNV Ondansetron HCl 4 mg Q4HP PRN IV 10/13/24 17:15 UNV Acetaminophen 650 mg Q6HP PRN PO 10/13/24 17:15 UNV Nitroglycerin 0.4 mg Q5MINP PRN SL 10/13/24 17:15 UNV Morphine Sulfate 2 mg Q30M PRN IV 10/13/24 17:15 UNV Ceftriaxone Sodium 50 ml @ 100 mls/hr DAILY@09 IV 10/13/24 17:15 10/16/24 10:20 100 MLS/HR Azithromycin 250 ml @ 125 mls/hr DAILY@1800 IV 10/13/24 18:00 10/16/24 17:51 125 MLS/HR Furosemide 40 mg DAILY IV 10/14/24 10:00 10/16/24 11:24 40 MG Albuterol 2.5 mg Q4HWA [facility] 10/13/24 18:00 10/16/24 22:02 2.5 MG Ipratropium [place] 0.5 mg Q4HWA [facility] 10/13/24 18:00 10/16/24 22:02 0.5 MG Enoxaparin Sodium 30 mg DAILY SC 10/14/24 10:00 UNV Heparin Sodium (Porcine) 5,000 units Q12HR SC 10/14/24 22:00 10/16/24 21:04 5,000 UNITS Laboratory Results Laboratory Tests 10/17/24 05:19 Chemistry Test 10/17/24 05:19 Calcium Level 9.9 mg/dL (8.7-10.4) Urinalysis Test 10/13/24 23:20 Urine Color Light-yellow (Yellow) Urine Clarity Clear (Clear) Urine pH 5.5 (5.0-9.0) Urine Specific [place] 1.009 (1.001-1.035) Urine Protein Trace (Negative) H Urine Ketones Negative (Negative) Urine Blood Trace /uL (Negative) H Urine Nitrite Negative (Negative) Urine Bilirubin Negative (Negative) Urine Urobilinogen Normal mg/dL (Negative) Urine Leukocyte Esterase Negative /uL (Negative) Urine RBC None seen /hpf (0 - 3) Urine Microscopic WBC < 1 /HPF (0-3) Urine Squamous Epithelial Cells None seen /hpf (<5) Urine Bacteria None seen /hpf (None Seen) Urine Glucose Normal mg/dL (Normal) Microbiology Microbiology Date/Time Source Procedure Growth Status 10/15/24 10:45 Pleural Fluid Gram Stain - Final Resulted 10/15/24 10:45 Pleural Fluid Body Fluid Culture - Preliminary Resulted Labs and/or images reviewed: Labs reviewed by me, Image(s) reviewed by me Assessment/Plan Assessment/Plan Acute hypoxic respiratory failure O2 by nasal cannula Community-acquired right upper lobe pneumonia Gram-positive/Gram-negative: Rocephin azithromycin albuterol Atrovent med neb Large left pleural effusion: Status post drainage of 2 L of fluid by the radiologist fluid analysis pending, patient feels much better after thoracentesis and now on room air Acute pulmonary edema Acute systolic CHF exacerbation Status post aortic valve repair: Coumadin was discontinued by PCP Dr. 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 on CKD3 Depression Gout Seizures Anxiety Hypertension Hypercholesterolemia Discussed with his about hospice placement because of frequent admissions and poor prognosis, Son Gumaro Bajwa Jr bedside and they all agreed to discharge the patient on hospice Patient was placed DNI per patient's wishes Time spent 50 minutes Advanced care planning time 20 minutes Patient is DNI Discharged on hospice Plan discussed with: Patient My Orders Orders - MEGAN GRIMES MD Procedure Category Date Status Time Pt Request For Service PT 10/16/24 Logged 08:41 Date of Service: Oct 17, 2024 Billing Provider: MEGAN GRIMES MD Common Visit Codes: [id number] INP/OBS CARE(HIGH) MEGAN GRIMES MD Oct 17, 2024 08:28
--- NOTE | 2024-10-17 08:39 | DVHDS2 ---
Discharge Summary Date of Admission Oct 13, 2024 at 17:14 Date of Discharge: Oct 17, 2024 Admitting Diagnosis Shortness of breath Wounds: Left thoracentesis Labs/Diagnostic Data: Laboratory Results Test 10/17/24 05:19 10/15/24 10:45 10/14/24 15:19 10/14/24 05:30 White Blood Count 7.4 10^3/uL (4.4-10.8) Red Blood Count 3.97 10^6/uL (4.5-5.90) Hemoglobin 13.1 g/dL (13.5-17.5) Hematocrit 37.5 % (41.0-53.0) Mean Corpuscular Volume 94.4 fL (80.0-100.0) Mean Corpuscular Hemoglobin 32.9 pg (28.0-32.0) Mean Corpuscular Hemoglobin Concent 34.9 g/dL (32.0-36.0) Red Cell Distribution Width 13.5 % (11.8-14.3) Platelet Count 134 10^3/uL (140-450) Mean Platelet Volume 9.2 fL (6.9-10.8) Neutrophils (%) (Auto) 64.2 % (37.0-80.0) Lymphocytes (%) (Auto) 9.3 % (10.0-50.0) Monocytes (%) (Auto) 11.8 % (0.0-12.0) Eosinophils (%) (Auto) 13.6 % (0.0-7.0) Basophils (%) (Auto) 1.1 % (0.0-2.0) Neutrophils # (Auto) 4.8 10 ^3/uL (1.6-8.6) Lymphocytes # (Auto) 0.7 10 ^3/uL (0.4-5.4) Monocytes # (Auto) 0.9 10 ^3/uL (0-1.3) Eosinophils # (Auto) 1.0 10 ^3/uL (0-0.8) Basophils # (Auto) 0.1 10 ^3/uL (0-0.2) Nucleated Red Blood Cells 0.2 % Sodium Level 140 mmol/L (136-145) Potassium Level 3.9 mmol/L (3.5-5.1) Chloride Level 99 mmol/L (98-107) Carbon Dioxide Level 31 mmol/L (20-31) Anion Gap 10 (5-15) Blood Urea Nitrogen 59 mg/dL (9-23) Creatinine 2.74 mg/dL (0.700-1.30) Glomerular Filtration Rate Calc 22 mL/min (>90) BUN/Creatinine Ratio 21.5 (10.0-20.0) Serum Glucose 89 mg/dL (74-106) Calcium Level 9.9 mg/dL (8.7-10.4) Body Fluid Source Pleural fluid Body Fluid pH 8.0 Body Fluid WBC (Manual) 84 CUMM (0-200) Body Fluid RBC (Manual) 1625 CUMM (0-2000) Body Fluid Mononuclear Cells 93 % Body Fluid Polymorphonuclear Cells 7 % (0-25) Body Fluid Glucose 111 mg/dL (.) Body Fluid Total Protein 2.3 g/dL (.) Body Fluid Lactate Dehydrogenase 140 IU/L (.) Prothrombin Time 11.8 sec (9.3-11.8) Prothrombin Time INR 1.13 (0.9-1.15) Activated Partial Thromboplast Time 27.5 SEC (24.5-34.5) Total Bilirubin 0.6 mg/dL (0.2-1.0) Aspartate Amino Transferase (AST) 14 U/L (13-40) Alanine Aminotransferase (ALT) < 9 U/L (7-40) Alkaline Phosphatase 99 U/L (46-116) Total Protein 6.1 g/dL (5.7-8.2) Albumin 3.7 g/dL (3.2-4.8) Digoxin Level 0.26 ng/mL (0.8-2) Test 10/13/24 23:20 10/13/24 15:40 Urine Color Light-yellow (Yellow) Urine Clarity Clear (Clear) Urine pH 5.5 (5.0-9.0) Urine Specific [place] 1.009 (1.001-1.035) Urine Protein Trace (Negative) Urine Ketones Negative (Negative) Urine Blood Trace /uL (Negative) Urine Nitrite Negative (Negative) Urine Bilirubin Negative (Negative) Urine Urobilinogen Normal mg/dL (Negative) Urine Leukocyte Esterase Negative /uL (Negative) Urine RBC None seen /hpf (0 - 3) Urine Microscopic WBC < 1 /HPF (0-3) Urine Squamous Epithelial Cells None seen /hpf (<5) Urine Bacteria None seen /hpf (None Seen) Urine Glucose Normal mg/dL (Normal) D-Dimer, Quantitative 1.99 mg/L FEU (0.0-0.49) Troponin I High Sensitivity 14 ng/L (</=54) B-Type Natriuretic Peptide 222.48 pg/mL (0-100) Other Laboratory Tests 10/17/24 05:19 Brief Hx & Hospital Course: 88-year-old male with a history of congestive heart failure status post aortic valve repair on Coumadin recurrent falls depression gout seizures anxiety hypertension hypercholesterolemia frequent admissions came in for shortness of breaths found to have pneumonia treated with the Rocephin azithromycin albuterol Atrovent. Left pleural effusion status post thoracentesis by radiologist with the removal of 2 L of fluid with some relief from shortness of breath. In view of the severe congestive heart failure frequent admissions and frail condition of the patient the and the son decided to place the patient on hospice and made the patient do not intubate. Per family request patient is being discharged on hospice today. General condition poor and prognosis very poor. Consults/Reason for consult Radiologist for thoracentesis Operations or Procedures Thoracentesis Condition at Discharge: Poor Final Diagnosis/Problems List Acute hypoxic respiratory failure O2 by nasal cannula Community-acquired right upper lobe pneumonia Gram-positive/Gram-negative: Rocephin azithromycin albuterol Atrovent med neb Large left pleural effusion: Status post drainage of 2 L of fluid by the radiologist fluid analysis pending, patient feels much better after thoracentesis and now on room air Acute pulmonary edema Acute systolic CHF exacerbation Status post aortic valve repair: Coumadin was discontinued by PCP Dr. 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 on CKD3 Depression Gout Seizures Anxiety Hypertension Hypercholesterolemia Discharge Disposition: Hospice - Home Discharge Instruct/Medications Diet: Cardiac 2g Na,low cholest Activity: Light activity Follow Up/Referral: Follow up with the hospice Medications: Continue all your previous home meds 35 (Time taken for discharge summary 35 minutes) Discharge Statement: "Patient was advised to return to the ER or call 911 if any headaches, dizziness, shortness of breath, chest pain, abdominal pain, bleeding, fevers, or worsening of medical condition. Patient was counseled about treatment plan, medications, possible side effects, patientverbalized understanding. All questions were answered to the best of my ability. This discharge took greater then 30 minutes in planning, reviewing documentation, counseling the patient, and discussing with other team members." ASSESSMENT ASSESSMENT Hospital Course Marginal improvement Assessment Acute hypoxic respiratory failure O2 by nasal cannula Community-acquired right upper lobe pneumonia Gram-positive/Gram-negative: Rocephin azithromycin albuterol Atrovent med neb Large left pleural effusion: Status post drainage of 2 L of fluid by the radiologist fluid analysis pending, patient feels much better after thoracentesis and now on room air Acute pulmonary edema Acute systolic CHF exacerbation Status post aortic valve repair: Coumadin was discontinued by PCP Dr. 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 on CKD3 Depression Gout Seizures Anxiety Hypertension Hypercholesterolemia Date of Service: Oct 17, 2024 Billing Provider: MEGAN GRIMES MD Common Visit Codes: [id number] DISCH DAY >30min MEGAN GRIMES MD Oct 17, 2024 08:39
[2024-10-17] MEDS ORDERED: ALBUAER3 IN (08:41)
[2024-10-17] MEDS ORDERED: AZIT500T66 PO (08:41)
== END 2024-10-17 20:40 | disposition hospice, home (50) | DRG 177 ==
LOC: ER 15:16 → OVERFLOW 17:14 → CENTRAL 19:07
PROVIDERS: ADMIT Family Medicine; ATTEND Family Medicine
PROC: 0W9B3ZZ Drainage of Left Pleural Cavity, Percutaneous Approach (ICD-10-PCS; principal; 2024-10-15)
DX: J15.69 Pneumonia due to other Gram-negative bacteria (principal); I50.23 Acute on chronic systolic (congestive) heart failure; J96.01 Acute respiratory failure with hypoxia; I13.0 Hypertensive heart and chronic kidney disease with heart failure and stage 1 through stage 4 chronic kidney disease, or unspecified chronic kidney disease; N17.9 Acute kidney failure, unspecified; J15.9 Unspecified bacterial pneumonia; F32.A Depression, unspecified; M10.9 Gout, unspecified; R56.9 Unspecified convulsions; F41.9 Anxiety disorder, unspecified; E78.00 Pure hypercholesterolemia, unspecified; N18.30 Chronic kidney disease, stage 3 unspecified; J45.909 Unspecified asthma, uncomplicated; Z83.3 Family history of diabetes mellitus; Z82.49 Family history of ischemic heart disease and other diseases of the circulatory system; Z87.891 Personal history of nicotine dependence; Z87.01 Personal history of pneumonia (recurrent); Z63.4 Disappearance and death of family member
CPT/HCPCS: 32555; 36415; 71045; 71250; 76942; 78582; 80048; 80053; 80162; 81001; 83880; 83986; 84484; 85025; 85379; 85610; 85730; 87205; 89051; 93005; 93306; 93970; 94640; 96365; 96372; 97163; 99291; 99292; G0378